=== PATIENT | female | born 1980 | race Hispanic/Latino ===

== ENCOUNTER 2017-04-08 19:54 | Inpatient (IN) | payer MEDICAID, OTHER ==
[2017-04-08 20:12] VITALS: BMI 25.7
[2017-04-08] MEDS ORDERED: Insulin Regular 1 UNITS/0.01 ML ML IVP STA (20:31)
[2017-04-08] MEDS ORDERED: Insulin Regular 100 UNITS in Sodium Chloride 0.9% 99 ML IV PRN (20:33)
--- NOTE | 2017-04-08 20:39 | ED PDOC ---
Arrival/HPI - General Chief Complaint: Abdominal Pain Time Seen by Provider: 04/08/17 20:22 Historian: Patient - History of Present Illness Narrative History of Present Illness (Text): 04/08/17 20:40 36 year old female whose past medical history includes IDDM, alcohol and drug abuse, hysterectomy, benign brain tumor presents to the emergency department with generalized malaise over the past few days, today associated with nausea, vomiting, abdominal cramps. Patient states also a few days ago began having sensation of slightly blurred vision which has since resolved. Denies any headache. No fever or chills. No chest pain or shortness of breath. Past Medical History - Provider Review Nursing Documentation Reviewed: Yes - Infectious Disease Hx of Infectious Diseases: None - Tetanus Immunization Tetanus Immunization: Unknown - Cardiac Hx Cardiac Disorders: No Hx Angina: No Hx Hypertension: Yes - Pulmonary Hx Respiratory Disorders: Yes Hx Pneumonia: Yes - Neurological Hx Neurological Disorder: Yes Hx Alzheimer's Disease: No HX Cerebrovascular Accident: No Hx Dementia: No Hx Dizziness: No Hx Meningitis: No Hx Migraine: No Hx Parkinson's Disease: No Hx Seizures: No Hx Transient Ischemic Attacks (TIA): No Other/Comment: benign brain mass - HEENT Hx HEENT Disorder: No Hx Blind: No Hx Cataracts: No Hx Deafness: No Hx Difficulty Chewing: No Hx Epistaxis: No Hx Glaucoma: No Hx Macular Degeneration: No - Renal Hx Renal Disorder: No Hx Dialysis: No Hx Kidney Stones: No Hx Neurogenic Bladder: No Hx Pyelonephritis: No Hx Renal Cancer: No Hx Renal Failure: No - Endocrine/Metabolic Hx Endocrine Disorders: Yes Hx Diabetes Mellitus Type 2: Yes Hx Hypothyroidism: Yes Other/Comment: insulin pump - Hematological/Oncological Hx Blood Transfusions: No Hx Blood Transfusion Reaction: No - Integumentary Hx Dermatological Disorder: No Hx Basal Cell Carcinoma: No Hx Eczema: No Hx Melanoma: No Hx Psoriasis: No Hx Squamous Cell Carcinoma: No - Musculoskeletal/Rheumatological Hx Musculoskeletal Disorders: No Hx Arthritis: No Hx Back Pain: No Hx Degenerative Joint Disease: No Hx Falls: No Hx Fractures: No Hx Gout: No Hx Herniated Disk: No Hx Myasthenia Gravis: No Hx Osteoarthritis: No Hx Osteomyelitis: No Hx Osteoporosis: No Hx Rhabdomyolysis: No Hx Spinal Stenosis: No Hx Unsteady Gait: No - Gastrointestinal Hx Gall Bladder Disease: No Hx Gastroesophageal Reflux: No Hx Ileostomy: No Hx Liver Failure: No Hx Pancreatitis: No HX Swallowing Problems: No - Genitourinary/Gynecological Hx Genitourinary Disorders: No Hx Hematuria: No Hx Incontinence: No Hx Sexually Transmitted Diseases: No Hx Urinary Tract Infection: No - Psychiatric Hx Anxiety: No Hx Bipolar Disorder: Yes Hx Depression: No Hx Hallucinations: No Hx Panic Disorder: No Hx Post Traumatic Stress Disorder: No Hx Substance Use: No - Surgical History Hx Cholecystectomy: Yes Other/Comment: brain surgery and hysterectomy - Anesthesia Hx Anesthesia: Yes Hx Anesthesia Reactions: No Hx Malignant Hyperthermia: No Family/Social History - Physician Review Nursing Documentation Reviewed: Yes Family/Social History: Unknown Family HX Smoking Status: Current Some Days Smoker Hx Alcohol Use: Yes (ETOH ABUSE) Frequency of alcohol use: Socially Hx Substance Use: No Allergies/Home Meds Allergies/Adverse Reactions: Allergies No Known Allergies Allergy (Verified 04/08/17 20:12) Review of Systems - Physician Review All systems were reviewed & negative as marked: Yes - Review of Systems Constitutional: Other (Generalized malaise). absent: Fevers Eyes: Vision Changes (blurred vision (resolved)) Respiratory: absent: SOB Cardiovascular: absent: Chest Pain Gastrointestinal: Abdominal Pain, Nausea, Vomiting Neurological: absent: Headache Physical Exam Vital Signs Reviewed: Yes Vital Signs Temp Pulse Resp BP Pulse Ox 04/08/17 20:22 97.3 F L 118 H 22 150/109 H 98 Temperature: Afebrile Blood Pressure: Hypertensive Pulse: Tachycardic Respiratory Rate: Normal Appearance: Positive for: Well-Appearing, Non-Toxic, Comfortable Pain Distress: None Mental Status: Positive for: Alert and Oriented X 3 Finger Stick Blood Glucose: 500 - Systems Exam Head: Present: Atraumatic, Normocephalic Pupils: Present: PERRL Extroacular Muscles: Present: EOMI Conjunctiva: Present: Normal, Other (Fundi normal, no hemorrhages) Mouth: Present: Dry, Other (Fruity odor on breath) Neck: Present: Normal Range of Motion, Other (Supple). No: Meningeal Signs, MIDLINE TENDERNESS, Paraspinal Tenderness Respiratory/Chest: Present: Clear to Auscultation, Good Air Exchange. No: Respiratory Distress, Accessory Muscle Use Cardiovascular: Present: Normal S1, S2, Tachycardic. No: Murmurs Abdomen: Present: Normal Bowel Sounds. No: Tenderness, Distention, Peritoneal Signs Back: Present: Normal Inspection Upper Extremity: Present: Normal Inspection. No: Cyanosis, Edema Lower Extremity: Present: Normal Inspection. No: Edema Neurological: Present: GCS=15, CN II-XII Intact, Speech Normal, Motor Func Grossly Intact, Normal Sensory Function, Other (No focal deficits) Skin: Present: Warm, Dry, Normal Color. No: Rashes Psychiatric: Present: Alert, Oriented x 3, Normal Insight, Normal Concentration Medical Decision Making ED Course and Treatment: Differential Diagnosis included but are not limited to: DKA Plan: -- EKG, Chest X-ray -- Labs -- Reassess and disposition Prior Visits: Notes and results from previous visits were reviewed. Patient last seen in the ED on 11/21/16 for generalized weakness and headache, admitted for Hyperosmolar non-ketotic state in patient with type 2 diabetes mellitus Progress Notes: Reviewed EKG, sinus tachycardia at 104 bpm. Non-specific ST/T wave changes. 04/08/17 21:24 Reviewed radiology, Chest X-ray shows no acute processes. 04/08/17 21:[address] Her, differential repairer, who is aware and agrees to evaluate pt for ICU. 04/08/17 22:[address] Her, present in Emergency department to evaluate pt. Pt will be admitted to the ICU for diabetic ketoacidosis. - Critical Care Critical Care Minutes: 30 minutes - Lab Interpretations Lab Results: 04/08/17 20:39 04/08/17 20:39 Lab Results 04/08/17 20:39: Sodium 132, Chloride 103, Potassium 4.0, Carbon Dioxide < 5 L D , Anion Gap 28 H, BUN 7, Creatinine 0.7, Est GFR ( Amer) > 60, Est GFR ( Non-Af Amer) > 60, Random Glucose 601 H* D, Calcium 8.9, Total Bilirubin 0.7, AST 34, ALT 45, Alkaline Phosphatase 105, Total Protein 8.3, Albumin 4.7, Globulin 3.5, Albumin/Globulin Ratio 1.3 04/08/17 20:39: pO2 169 H, VBG pH 7.13 L*, VBG pCO2 16.0 L*, VBG HCO3 5.3 L, VBG Total CO2 5.8 L, VBG O2 Sat (Calc) 98.7 H, VBG Base Excess -21.7 L, VBG Potassium 4.1, Sodium 132.0, Chloride 104.0, Glucose 667 H*, Lactate 1.0, FiO2 21.0, Venous Blood Potassium 4.1 04/08/17 20:39: PT 10.2, INR 0.94, APTT 32.2 H 04/08/17 20:39: WBC 6.0, RBC 4.28, Hgb 15.0, Hct 41.4, MCV 96.7, MCH 35.0, MCHC 36.2, RDW 13.3, Plt Count 311, MPV 10.2, Gran % 57.0, Lymph % (Auto) 35.1 H, Dawes % (Auto) 6.2 H, Eos % (Auto) 0.7 L, Baso % (Auto) 1.0, Gran # 3.41, Lymph # 2.1, Dawes # 0.4, Eos # 0.0, Baso # 0.06 I have reviewed the lab results: Yes - RAD Interpretation Radiology Orders: 04/08/17 20:29 CHEST PORTABLE [RAD] Stat Optometric Coordinator: ED Physician - EKG Interpretation Interpreted by ED Physician: Yes Type: 12 lead EKG - Medication Orders Current Medication Orders: Atenolol (Tenormin) 12.5 mg PO DAILY SHIREEN Divalproex Sodium (Depakote Er(Once Daily)) 500 mg PO DAILY SHIREEN PRN Reason: Protocol Gabapentin (Neurontin) 300 mg PO TID SHIREEN PRN Reason: Protocol Insulin Human Regular 100 (units/ Sodium Chloride) 100 mls @ 8 mls/hr IV .[id number] PRN; Protocol; 8 UNITS/HR PRN Reason: TITRATE PER MD ORDER Last Admin: 04/08/17 21:12 Dose: 8 mls/hr Famotidine 20 mg/ Sodium (Chloride) 52 mls @ 100 mls/hr IV DAILY SHIREEN Sodium Chloride (Sodium Chloride 0.9%) 1,000 mls @ 200 mls/hr IV .Q5H SHIREEN Levothyroxine Sodium (Synthroid) 88 mcg PO ACB SHIREEN Lisinopril (Zestril) 5 mg PO DAILY SHIREEN Ondansetron HCl (Zofran Inj) 4 mg IVP Q6 PRN PRN Reason: Nausea/Vomiting Discontinued Medications Sodium Chloride 2,000 ml/ IV (SUPPLIES) 2,000 mls @ 3,592.44 mls/hr IV ONCE ONE PRN Reason: 60 ML/KG/HR Stop: 04/08/17 20:30 Last Admin: 04/08/17 20:58 Dose: 3,592.44 mls/hr Insulin Human Regular (Humulin R) 10 units IVP STAT STA Stop: 04/08/17 20:32 Last Admin: 04/08/17 21:12 Dose: 10 units Insulin Human Regular (Humulin R) Confirm Administered Dose 100 units .ROUTE .STK-MED ONE Stop: 04/08/17 20:53 Last Admin: 04/08/17 21:12 Dose: - Scribe Statement The provider has reviewed the documentation as recorded by the Desiree Johnson Provider Scribe Attestation: All medical record entries made by the Johnsonibe were at my direction and personally dictated by me. I have reviewed the chart and agree that the record accurately reflects my personal performance of the history, physical exam, medical decision making, and the department course for this patient. I have also personally directed, reviewed, and agree with the discharge instructions and disposition. Disposition/Present on Arrival - Present on Arrival Any Indicators Present on Arrival: No History of DVT/PE: No History of Uncontrolled Diabetes: Yes Urinary Catheter: No History of Decub. Ulcer: No History Surgical Site Infection Following: None - Disposition Have Diagnosis and Disposition been Completed?: Yes Diagnosis: Diabetic ketoacidosis Disposition: HOSPITALIZED Disposition Time: 21:25 Patient Plan: ICU Patient Problems: Current Active Problems Problem Status Onset Diabetic ketoacidosis Acute Condition: FAIR
[2017-04-08 20:50] LABS: ADD MANUAL DIFF? NO
[2017-04-08] MEDS ORDERED: Insulin Regular 1 UNITS/0.01 ML ML ONE (20:52)
[2017-04-08 20:59] LABS: VENOUS BLOOD GAS BASE EXCESS -21.7 mmol/L (0.0-2.0)
[2017-04-08 21:08] LABS: ALB/GLOB RATIO 1.3 (1.1-1.8); ALKALINE PHOSPHATASE 105 U/L (38-133); ALT/SGPT 45 U/L (7-56); AST/SGOT 34 U/L (15-39); BILIRUBIN,TOTAL 0.7 mg/dL (0.2-1.3); BLOOD UREA NITROGEN 7 mg/dL (7-21); CALCIUM 8.9 mg/dL (8.4-10.5); CHLORIDE 103 mmol/L (98-107); GFR AFRICAN-AMERICAN > 60; SODIUM 132 mmol/L (132-148); TOTAL PROTEIN 8.3 g/dL (5.8-8.3)
[2017-04-08 21:09] LABS: INR 0.94 (0.93-1.08); PARTIAL THROMBOPLASTIN TIME 32.2 Seconds (23.7-30.8)
[2017-04-08 21:12] LABS: BASO # 0.06 K/mm3 (0.0-2.0); EOS % 0.7 % (1.5-5.0); GRAN # 3.41 (1.4-6.5); HEMATOCRIT 41.4 % (36.0-48.0); LYMPH # 2.1 (1.2-3.4); LYMPH % 35.1 % (22.0-35.0); MEAN CELL VOLUME 96.7 fL (80.0-105.0); MEAN CORPUSCULAR HGB CONC 36.2 g/dl (31.0-37.0); MEAN PLATELET VOLUME 10.2 fl (7.0-11.0); MONO # 0.4 (0.1-0.6); MONO % 6.2 % (1.0-6.0); PLATELET COUNT 311 10^3/uL (120.0-450.0); RED CELL DISTRIBUTION WIDTH 13.3 % (11.5-14.5)
[2017-04-08 21:15] LABS: VENOUS BLOOD PH 7.13 (7.32-7.43)
[2017-04-08 21:17] LABS: CARBON DIOXIDE < 5 mmol/L (21-33); GLUCOSE,RANDOM 601 mg/dL (70-110)
[2017-04-08 22:51] LABS: MAGNESIUM 2.1 mg/dL (1.7-2.2); PHOSPHOROUS 3.1 mg/dL (2.5-4.5)
[2017-04-09] MEDS ORDERED: Morphine 2 mg/ml ISec ONE ×3 (02:58→13:21)
--- NOTE | 2017-04-09 07:22 | RAD ---
HISTORY: Sepsis Patient COMPARISON: 09/11/2015 FINDINGS: LUNGS: No active pulmonary disease. PLEURA: No significant pleural effusion identified, no pneumothorax apparent. CARDIOVASCULAR: Normal. OSSEOUS STRUCTURES: No significant abnormalities. VISUALIZED UPPER ABDOMEN: Normal. OTHER FINDINGS: None. IMPRESSION: No active disease.
[2017-04-09] MEDS ORDERED: Levothyroxine 88 MCG TAB PO SCH (07:30)
[2017-04-09] MEDS ORDERED: Potassium Chloride 20 mEq ER Tab PO SCH (09:35)
[2017-04-09] MEDS ORDERED: Famotidine 20mg/50ml 20 MG/50 ML BAG IVPB SCH (10:00)
[2017-04-09] MEDS ORDERED: Divalproex 500 mg ER (ONCE DAILY formulation) PO SCH (10:00)
[2017-04-09] MEDS ORDERED: Potassium Chloride 20 mEq ER Tab PO ONE ×2 (11:07→13:22)
--- NOTE | 2017-04-09 15:05 | CARD ---
APPROVED REPORT EKG Measurement Heart [id number] <Conclusion> Sinus tachycardia Otherwise normal ECG
[2017-04-09] MEDS ORDERED: Insulin Detemir 100 units/ml Vial (Levemir) SC SCH ×2 (15:35→22:00)
[2017-04-09] MEDS ORDERED: Insulin Detemir 100 units/ml Vial (Levemir) SC ONE (16:23)
[2017-04-09] MEDS ORDERED: MethylPREDNISolone 40 mg Vial ONE (18:37)
--- NOTE | 2017-04-09 19:10 | CP.PCM.HP ---
<Thor Dos Santos - Last Filed: 04/10/17 04:13> History of Present Illness - History of Present Illness History of Present Illness: 36 year old female with past medical history of IDDM, hypothyroidism, bipolar disorder, alcohol abuse, and brain tumor s/p resection presents to [facility] [place] [facility] ED complaining of nausea, vomiting and generalized weakness. Patient reports her symptoms all started 4 days ago. Other associated symptoms include blurred vision, dizziness, decreased appetite and abdominal pain. Patients insulin pump has been working normally, but her glucose level has been elevated in the 300s. Patient was admitted to [facility] previously in October 2017 for HONK and sepsis. Patient denies having fever, chills, headache, shortness of breath, chest pain, palpitations, diarrhea or urinary symptoms. PMD: none PMHx: IDDM, hypothyroidism, bipolar disorder, alcohol abuse, and brain tumor s/ p resection PSHx: cholecystectomy, hysterectomy Allergy: NKFS Social: Current smoker, social alcohol use, denies other drug use Family Hx: unknow: Home meds: lisinopril, synthroid, humalog, neurontin, depakote, atenolol Present on Admission - Present on Admission Any Indicators Present on Admission: No History of DVT/PE: No History of Uncontrolled Diabetes: Yes Review of Systems - Constitutional Constitutional: As Per HPI, Fatigue, Lethargy. absent: Chills, Fever - EENT Eyes: As Per HPI, Blurred Vision, Change in Vision Ears: As Per HPI. absent: Dizziness Nose/Mouth/Throat: As Per HPI, Dry Mouth - Cardiovascular Cardiovascular: As Per HPI. absent: Chest Pain - Respiratory Respiratory: As Per HPI. absent: Cough, Dyspnea, Wheezing - Gastrointestinal Gastrointestinal: As Per HPI, Abdominal Pain, Nausea, Vomiting - Genitourinary Genitourinary: As Per HPI, Urinary Frequency. absent: Urinary Hesitance, Urinary Urgency - Musculoskeletal Musculoskeletal: As Per HPI Additional comments: left ankle mass - Integumentary Integumentary: As Per HPI - Neurological Neurological: As Per HPI, Weakness. absent: Confusion, Headaches, Syncope - Psychiatric Psychiatric: As Per HPI - Endocrine Endocrine: As Per HPI, Fatigue, Polydipsia - Hematologic/Lymphatic Hematologic: As Per HPI Past Patient History - Infectious Disease Hx of Infectious Diseases: None - Tetanus Immunizations Tetanus Immunization: Unknown - Past Medical History & Family History Past Medical History?: Yes - Past Social History Smoking Status: Current Some Days Smoker - CARDIAC Hx Cardiac Disorders: No Hx Angina: No Hx Hypertension: Yes - PULMONARY Hx Respiratory Disorders: Yes Hx Pneumonia: Yes - NEUROLOGICAL Hx Neurological Disorder: Yes Hx Alzheimer's Disease: No HX Cerebrovascular Accident: No Hx Dementia: No Hx Dizziness: No Hx Meningitis: No Hx Migraine: No Hx Parkinson's Disease: No Hx Seizures: No Hx Transient Ischemic Attacks (TIA): No Other/Comment: benign brain mass - HEENT Hx HEENT Problems: No Hx Blind: No Hx Cataracts: No Hx Deafness: No Hx Difficulty Chewing: No Hx Epistaxis: No Hx Glaucoma: No Hx Macular Degeneration: No - RENAL Hx Chronic Kidney Disease: No Hx Dialysis: No Hx Kidney Stones: No Hx Neurogenic Bladder: No Hx Pyelonephritis: No Hx Renal (Kidney) Cancer: No Hx Renal Failure: No - ENDOCRINE/METABOLIC Hx Endocrine Disorders: Yes Hx Diabetes Mellitus Type 2: Yes Hx Hypothyroidism: Yes Other/Comment: insulin pump - HEMATOLOGICAL/ONCOLOGICAL Hx Blood Transfusions: No Hx Blood Transfusion Reaction: No - INTEGUMENTARY Hx Dermatological Problems: No Hx Basil Cell: No Hx Eczema: No Hx Melanoma: No Hx Psoriasis: No Hx Squamous Cell: No - MUSCULOSKELETAL/RHEUMATOLOGICAL Hx Musculoskeletal Disorders: No Hx Arthritis: No Hx Back Pain: No Hx Degenerative Joint Disease: No Hx Falls: No Hx Fractures: No Hx Gout: No Hx Herniated Disk: No Hx Myasthenia Gravis: No Hx Osteoarthritis: No Hx Osteomyelitis: No Hx Osteoporosis: No Hx Rhabdomyolysis: No Hx Spinal Stenosis: No Hx Unsteady Gait: No - GASTROINTESTINAL Hx Gall Bladder Disease: No Hx Gastroesophageal Reflux: No Hx Ileostomy: No Hx Liver Failure: No Hx Pancreatitis: No HX Swallowing Problems: No - GENITOURINARY/GYNECOLOGICAL Hx Genitourinary Disorders: No Hx Hematuria: No Hx Incontinence: No Hx Sexually Transmitted Disorders: No Hx Urinary Tract Infection: No - PSYCHIATRIC Hx Anxiety: No Hx Bipolar Disorder: Yes Hx Depression: No Hx Hallucinations: No Hx Panic Symptoms: No Hx Post Traumatic Stress Disorder: No Hx Substance Use: No - SURGICAL HISTORY Hx Cholecystectomy: Yes Other/Comment: brain surgery and hysterectomy - ANESTHESIA Hx Anesthesia: Yes Hx Anesthesia Reactions: No Hx Malignant Hyperthermia: No Meds Allergies/Adverse Reactions: Allergies Allergy/AdvReac Type Severity Reaction Status Date / Time No Known Allergies Allergy Verified 04/08/17 20:12 Physical Exam - Constitutional Appears: Non-toxic, No Acute Distress - Head Exam Head Exam: ATRAUMATIC, NORMAL INSPECTION, NORMOCEPHALIC - Eye Exam Eye Exam: EOMI, Normal appearance, PERRL - ENT Exam ENT Exam: Mucous Membranes Moist - Neck Exam Neck exam: Positive for: Normal Inspection - Respiratory Exam Respiratory Exam: Clear to Auscultation Bilateral, NORMAL BREATHING PATTERN. absent: Wheezes, Respiratory Distress, Stridor - Cardiovascular Exam Cardiovascular Exam: REGULAR RHYTHM, RRR, +S1, +S2 - GI/Abdominal Exam GI & Abdominal Exam: Normal Bowel Sounds, Soft, Tenderness (diffused tenderness) . absent: Hernia, Mass - Extremities Exam Extremities exam: Positive for: normal capillary refill, pedal pulses present Additional comments: Left lateral malleolus mass 2cm in diameter, painful to touch, no erythema or open lesions - Back Exam Back exam: NORMAL INSPECTION - Neurological Exam Neurological exam: Alert, Oriented x3 - Psychiatric Exam Psychiatric exam: Normal Affect, Normal Mood - Skin Skin Exam: Dry, Warm Results - Vital Signs Recent Vital Signs: Last Vital Signs Temp 97.3 F L 04/08/17 20:22 Pulse 96 H 04/08/17 23:44 Resp 18 04/08/17 23:44 BP 129/80 04/08/17 23:44 Pulse Ox 97 04/08/17 23:44 - Labs Result Diagrams: 04/08/17 20:39 04/09/17 18:50 Labs: Laboratory Results - last 24 hr 04/08/17 04/09/17 04/09/17 23:48 00:58 02:09 POC Glucose (mg/dL) 401 H* 332 H 206 H 04/09/17 04/09/17 04/09/17 03:13 04:06 05:13 POC Glucose (mg/dL) 136 H 107 90 04/09/17 04/09/17 04/09/17 07:06 08:01 09:04 POC Glucose (mg/dL) 119 H 122 H 123 H 04/09/17 04/09/17 04/09/17 10:01 11:05 12:07 POC Glucose (mg/dL) 129 H 294 H 265 H 04/09/17 04/09/17 04/09/17 13:10 14:04 15:05 POC Glucose (mg/dL) 177 H 220 H 194 H 04/09/17 04/09/17 04/09/17 15:53 16:52 17:56 POC Glucose (mg/dL) 189 H 161 H 196 H Assessment & Plan - Assessment and Plan (Free Text) Assessment: 36 year old female with past medical history of IDDM, hypothyroidism, and bipolar disorder presents with nausea, vomiting, and abdominal pain was admitted for DKA Plan: DKA -Gap 24, pH 7.13, pCO2 16, HCO3 5.3, Glucose 667, Potassium 4 -ICU admission -Insulin drip IV -IVF NS @200ml/hr, start D5 1/2 once FS<250 -FS Q1h -NPO -BMP Q4h -Strict I&O -Zofran for N/V -Morphine 2mg iv Q4 prn for pain -Monitor electrolytes, supplement as needed -Blood culture pending to r/o infectious etiologies -Endocrine consult, Dr. Garcia help appreciated Hypertension -Resume lisinopril, atenolol Bipolar disorder -Resume depakote Hypothyroidism -Resume synthroid Left ankle nodule -Patient had outpatient workup done, will continue outpatient management Prophylactic measures -SCD for DVT ppx -Protonix of GI ppx <Taina,Thomas Q - Last Filed: 04/11/17 00:54> Results - Vital Signs Recent Vital Signs: Last Vital Signs Temp 98.4 F 04/10/17 15:47 Pulse 86 04/10/17 15:47 Resp 20 04/10/17 15:47 BP 93/61 L 04/10/17 15:47 Pulse Ox 94 L 04/10/17 15:47 - Labs Result Diagrams: 04/10/17 06:30 04/10/17 06:30 Labs: Laboratory Results - last 24 hr 04/09/17 04/09/17 04/09/17 07:00 07:00 07:00 WBC 5.8 RBC 3.58 Hgb 12.3 Hct 33.5 L MCV 93.6 MCH 34.4 MCHC 36.7 RDW 13.2 Plt Count 240 MPV 9.4 Gran % Lymph % (Auto) Parke % (Auto) Eos % (Auto) Baso % (Auto) Gran # Lymph # Parke # Eos # Baso # Sodium 139 Potassium 2.9 L* Chloride 114 H Carbon Dioxide 15 L Anion Gap 13 BUN 7 Creatinine 0.5 Est GFR ( Amer) > 60 Est GFR (Non-Af Amer) > 60 POC Glucose (mg/dL) Random Glucose 113 H Hemoglobin A1c 13.1 H Calcium 7.3 L Phosphorus Total Bilirubin 0.8 AST 188 H ALT 83 H Alkaline Phosphatase 83 Total Protein 5.7 L Albumin 3.1 Globulin 2.5 Albumin/Globulin Ratio 1.2 Triglycerides Cholesterol LDL Cholesterol Direct HDL Cholesterol Thyroxine (T4) TSH 3rd Generation 04/09/17 04/10/17 04/10/17 15:30 06:30 06:30 WBC 4.8 RBC 3.51 Hgb 11.8 L Hct 33.2 L MCV 94.6 MCH 33.6 MCHC 35.5 RDW 14.0 Plt Count 234 MPV 9.8 Gran % 39.5 L Lymph % (Auto) 50.1 H Parke % (Auto) 8.3 H Eos % (Auto) 1.7 Baso % (Auto) 0.4 Gran # 1.90 Lymph # 2.4 Parke # 0.4 Eos # 0.1 Baso # 0.02 Sodium 135 138 Potassium 3.5 L 3.5 L Chloride 114 H 113 H Carbon Dioxide 18 L 20 L Anion Gap 7 L 9 L BUN 7 6 L Creatinine 0.5 0.5 Est GFR ( Amer) > 60 > 60 Est GFR (Non-Af Amer) > 60 > 60 POC Glucose (mg/dL) Random Glucose 178 H 389 H* D Hemoglobin A1c Calcium 7.1 L 7.8 L Phosphorus 1.7 L Total Bilirubin 0.3 0.3 AST 100 H 30 ALT 83 H 58 H Alkaline Phosphatase 72 75 Total Protein 4.9 L 4.9 L Albumin 2.6 L 2.5 L Globulin 2.3 2.4 Albumin/Globulin Ratio 1.1 1.0 L Triglycerides 496 H Cholesterol 246 H LDL Cholesterol Direct 127 HDL Cholesterol 34 Thyroxine (T4) TSH 3rd Generation 04/10/17 04/10/17 06:30 11:13 WBC RBC Hgb Hct MCV MCH MCHC RDW Plt Count MPV Gran % Lymph % (Auto) Parke % (Auto) Eos % (Auto) Baso % (Auto) Gran # Lymph # Parke # Eos # Baso # Sodium Potassium Chloride Carbon Dioxide Anion Gap BUN Creatinine Est GFR ( Amer) Est GFR (Non-Af Amer) POC Glucose (mg/dL) 103 Random Glucose Hemoglobin A1c Calcium Phosphorus Total Bilirubin AST ALT Alkaline Phosphatase Total Protein Albumin Globulin Albumin/Globulin Ratio Triglycerides Cholesterol LDL Cholesterol Direct HDL Cholesterol Thyroxine (T4) 3.7 L TSH 3rd Generation 16.30 H Attending/Attestation - Attestation I have personally seen and examined this patient.: Yes I have fully participated in the care of the patient.: Yes I have reviewed all pertinent clinical information: Yes Notes (Text): 04/11/17 00:53 I agree with the note and exam by the resident with the addition/exception of the followin36 y/o female with a PMHx IDDM presents to the ED with the complaints of fatigue and lethargy and was found to be in DKA. The patient had anion gap acidosis of 24 and was started on IVF hydration as well as an insulin drip. Case discussed at length with Dr. Dacosta in the ED labs and images available at the time were all reviewed Total time of care: 40 minutes
[2017-04-09] MEDS: Morphine 2 mg/ml ISec IVP PRN (20:00)
[2017-04-09 21:04] LABS: BLOOD UREA NITROGEN 7 mg/dL (7-21); CALCIUM 7.4 mg/dL (8.4-10.5); CARBON DIOXIDE 16 mmol/L (21-33); CHLORIDE 112 mmol/L (98-107); GFR AFRICAN-AMERICAN > 60; GLUCOSE,RANDOM 225 mg/dL (70-110); POTASSIUM 3.6 mmol/L (3.6-5.0); SODIUM 136 mmol/L (132-148)
[2017-04-09 21:08] LABS: BLOOD UREA NITROGEN 7 mg/dL (7-21); CHLORIDE 114 mmol/L (98-107); GFR AFRICAN-AMERICAN > 60; GLUCOSE,RANDOM 113 mg/dL (70-110); SODIUM 139 mmol/L (132-148)
[2017-04-09 21:09] LABS: CALCIUM 7.3 mg/dL (8.4-10.5); CARBON DIOXIDE 15 mmol/L (21-33)
[2017-04-09] MEDS: Sodium Chloride 0.9% 1,000 ML IV SCH (22:00)
--- NOTE | 2017-04-09 23:36 | CON ---
DATE: 04/09/2017 HISTORY OF PRESENT ILLNESS: This is a 36-year-old female with known history of type 1 insulin-depend ent diabetes, presenting here with generalized body weakness and supervening marked hyperglycemic acc elerations and is now being referred for diabetic evaluation and management. She currently is on aracelis oing insulin pump infusion at home given by subcutaneous continuous infusion as noted. She alleges t hat the pump has been working otherwise. No recent home glucose monitoring levels are available at t his time. PAST MEDICAL HISTORY: As mentioned above, history of type 1 insulin-dependent diabetes with poor met abolic control of her diabetic condition despite the aforementioned and has had multiple admissions f or diabetic ketoacidosis and dehydration, history of hypertension and dyslipidemia, history of hypoth yroidism, currently on levothyroxine given as 88 mcg daily, history of diabetic retinopathy and polyn europathy, currently on Neurontin therapy. FAMILY HISTORY: Positive for hypertension and diabetes. SOCIAL HISTORY: The patient has supportive family and admits to nicotine dependence with frequent al cohol use. REVIEW OF SYSTEMS: As mentioned above, admits to generalized body weakness with progressive bouts of dizziness and lightheadedness, worse on the day of admission. Also, admits to visual blurring and b ifrontal headache. No chest pains or palpitations or PNDs. Her oral intake is variable and suboptim al with nausea, dyspepsia and episodic vomiting episodes. Also, admits to marked polyuria, nocturia, polydipsia, and about a 5-pound or so weight loss. PHYSICAL EXAMINATION: GENERAL: This is an average built female in no apparent distress. VITAL SIGNS: Blood pressure of 140/80, pulse of 84 beats per minute and regular, temperature 98, res pirations 20. Height is 5 feet, weight is 149 pounds. HEENT: Head normocephalic. Eyes anicteric with pink conjunctivae. Fundoscopy not possible at this time. Ears, nose and throat otherwise normal. NECK: Supple. Thyroid gland is normal size. No carotid bruits. No cervical adenopathy. CARDIOPULMONARY: Has an adynamic precordium. S1, S2 rapid and regular. LUNGS: Clear to auscultation. ABDOMEN: Flat, soft with positive bowel sounds. EXTREMITIES: No peripheral edema. Pulses are +2 bilaterally. LABORATORY DATA: Her chemistries showed a BUN of 7, sodium 136, potassium 3.6, chloride 112, CO2 is 16, glucose 225, and creatinine 0.6. Her glucose levels have ranged from 196 to 294 and 315 mg/dL. ASSESSMENT: This is a 36-year-old female with uncontrolled and decompensated type 1 insulin-dependen t diabetes, presenting here with diabetic ketoacidosis and dehydration and is now being referred for diabetic evaluation and management. She also has diabetic microvascular complications of retinopathy and polyneuropathy as noted. The biggest concern at this time is the fact that she apparently has b een using an insulin pump, giving continuous insulin infusion subcutaneously, but has had a significa nt history of poor and suboptimal metabolic control with frequent admissions for diabetic ketoacidosi s and once again presenting here with the aforementioned and so there is a big question as to her adh erence to the diligent use of the insulin pump as mentioned. PLAN OF MANAGEMENT: As discussed with the medical assistant secretary, we will discontinue insulin drip infusio n at this time and switch her over now to a basal and bolus insulin regimen, which is more physiologi c, and hold off on the use of the insulin pump for now to allow her to improve both clinically and me tabolically as noted. We will start her on Levemir given as 20 units subQ at bedtime daily to start tonight. We will also add Humalog given as 10 units subQ t.i.d. before meals to start at dinnertime today as ordered. We will titrate incrementally as indicated to optimize metabolic control. We will modify the coverage scale to a very low dose algorithm using Humalog insulin to obviate hypoglycemia and overlap of the aforementioned medications. We will continue the vigorous IV hydration with norm al saline and given at 200 mL per hour to resolve the anion gap acidosis. We will obtain serial chem istries and supplement accordingly as needed. We will also consult our diabetic nurse educator, Ms. Olesya Goins, to reinforce strict adherence to her insulin regimen and also to consult a dietiti an for healthier food choices and nutritional evaluation. We will also obtain a comprehensive thyroi d hormonal profile and adjust her levothyroxine dose accordingly. Michaela Garcia MD cc: [id number] TT: 04/09/2017 23:36:20 Confirmation # [id number] Dictation # [id number] ln
[2017-04-10] MEDS ORDERED: Insulin Regular 1 UNITS/0.01 ML ML SC ONE (01:01)
[2017-04-10] MEDS ORDERED: Insulin Regular 1 UNITS/0.01 ML ML SC STA (05:59)
[2017-04-10 06:57] LABS: ADD MANUAL DIFF? NO
[2017-04-10 07:11] LABS: BASO # 0.02 K/mm3 (0.0-2.0); BASO % 0.4 % (0.0-3.0); EOS # 0.1 (0.0-0.7); EOS % 1.7 % (1.5-5.0); GRAN % 39.5 % (50.0-68.0); HEMATOCRIT 33.2 % (36.0-48.0); LYMPH # 2.4 (1.2-3.4); LYMPH % 50.1 % (22.0-35.0); MEAN CELL VOLUME 94.6 fL (80.0-105.0); MEAN CORPUSCULAR HEMOGLOBIN 33.6 pg (25.0-35.0); MEAN CORPUSCULAR HGB CONC 35.5 g/dl (31.0-37.0); MEAN PLATELET VOLUME 9.8 fl (7.0-11.0); MONO # 0.4 (0.1-0.6); MONO % 8.3 % (1.0-6.0); PLATELET COUNT 234 10^3/uL (120.0-450.0); WHITE BLOOD COUNT 4.8 10^3/ul (4.5-11.0)
[2017-04-10 07:20] LABS: ALKALINE PHOSPHATASE 75 U/L (38-133); ALT/SGPT 58 U/L (7-56); AST/SGOT 30 U/L (15-39); BILIRUBIN,TOTAL 0.3 mg/dL (0.2-1.3); BLOOD UREA NITROGEN 6 mg/dL (7-21); CALCIUM 7.8 mg/dL (8.4-10.5); CARBON DIOXIDE 20 mmol/L (21-33); CHLORIDE 113 mmol/L (98-107); CHOLESTEROL 246 mg/dL (130-200); GFR AFRICAN-AMERICAN > 60; PHOSPHOROUS 1.7 mg/dL (2.5-4.5); POTASSIUM 3.5 mmol/L (3.6-5.0); SODIUM 138 mmol/L (132-148); TOTAL PROTEIN 4.9 g/dL (5.8-8.3)
[2017-04-10] MEDS ORDERED: Pantoprazole 20 mg EC Tab PO SCH (07:30)
[2017-04-10] MEDS ORDERED: Insulin Reg-LOW-Coverage SC SCH (07:30)
[2017-04-10] MEDS ORDERED: Insulin Lispro (humaLOG) MEDIUM Coverage SC SCH (07:30)
[2017-04-10] MEDS ORDERED: Insulin Lispro 1 UNITS/0.01 ML SC SCH ×2 (07:30→10:00)
[2017-04-10 07:35] LABS: T4 3.7 ug/dL (5.5-11.0)
[2017-04-10 07:48] LABS: THYROID STIMULATING HORMONE 16.3 mIU/mL (0.46-4.68)
[2017-04-10] MEDS: Insulin Lispro (humaLOG) LOW Coverage SC SCH ×2 (08:04→11:45)
[2017-04-10] MEDS: Sodium Chloride 0.9% 1,000 ML IV SCH (08:05)
[2017-04-10 09:15] VITALS: RESP 20
[2017-04-10] MEDS: Potassium & Sodium Phosphate PO SCH ×3 (09:15→17:02)
[2017-04-10] MEDS: Morphine 2 mg/ml ISec IVP PRN ×2 (09:39→15:47)
[2017-04-10] MEDS ORDERED: Pantoprazole 40 mg EC Tab PO SCH (10:00)
[2017-04-10 10:30] LABS: GLUCOSE,RANDOM 389 mg/dL (70-110)
[2017-04-10] MEDS: Insulin Lispro 1 UNITS/0.01 ML SC SCH ×2 (11:30→17:03)
[2017-04-10 11:57] LABS: BLOOD UREA NITROGEN 7 mg/dL (7-21); GFR AFRICAN-AMERICAN > 60; GLUCOSE,RANDOM 113 mg/dL (70-110); SODIUM 139 mmol/L (132-148)
[2017-04-10 12:09] LABS: ALB/GLOB RATIO 1.2 (1.1-1.8); CALCIUM 7.3 mg/dL (8.4-10.5); CARBON DIOXIDE 15 mmol/L (21-33); CHLORIDE 114 mmol/L (98-107); POTASSIUM 2.9 mmol/L (3.6-5.0); TOTAL PROTEIN 5.7 g/dL (5.8-8.3)
[2017-04-10 12:10] LABS: ALKALINE PHOSPHATASE 83 U/L (38-133); ALT/SGPT 83 U/L (7-56); AST/SGOT 188 U/L (15-39); BILIRUBIN,TOTAL 0.8 mg/dL (0.2-1.3)
[2017-04-10 12:16] LABS: ALB/GLOB RATIO 1.1 (1.1-1.8); ALKALINE PHOSPHATASE 72 U/L (38-133); ALT/SGPT 83 U/L (7-56); AST/SGOT 100 U/L (15-39); BILIRUBIN,TOTAL 0.3 mg/dL (0.2-1.3); BLOOD UREA NITROGEN 7 mg/dL (7-21); CALCIUM 7.1 mg/dL (8.4-10.5); CARBON DIOXIDE 18 mmol/L (21-33); CHLORIDE 114 mmol/L (95-110); GFR AFRICAN-AMERICAN > 60; GLUCOSE,RANDOM 178 mg/dL (70-110); POTASSIUM 3.5 mmol/L (3.6-5.0); SODIUM 135 mmol/L (132-148); TOTAL PROTEIN 4.9 g/dL (5.8-8.3)
--- NOTE | 2017-04-10 13:15 | PN ---
DATE: 04/10/2017 ROOM: 573 This is a 36-year-old female with recent uncontrolled type 1 insulin-dependent diabetes, presenting h ere with diabetic ketoacidosis and dehydration and has since then improved clinically and metabolical ly as noted thereof. She received vigorous IV hydration and intensive insulin therapy in the ICU as noted. At this time, her oral intake remains quite variable with supervening glycemic fluctuations e xpected. Her latest chemistry showed a BUN of , sodium 138, potassium 3.5, chloride 113, CO2 of 20, glucose 389 and creatinine 0.5. Her glucose levels have ranged from 103-294 and 315 mg/dL. The fasting glucose today was 389 as mentioned. So at this time, we will modify once again her basal in sulin and increase the Levemir to 30 units subQ at bedtime daily to start tonight. We will continue the Humalog given as 10 units subQ t.i.d. before meals as ordered. We will titrate incrementally as indicated to optimize metabolic control. We will follow and advise accordingly. Michaela Garcia MD cc: [id number] TT: 04/10/2017 13:14:24 Confirmation # [id number] Dictation # [id number] lian
[2017-04-10] MEDS ORDERED: Insulin Lispro (humaLOG) LOW Coverage SC SCH (13:33)
--- NOTE | 2017-04-10 15:16 | RAD ---
HISTORY: short of breath COMPARISON: 04/08/2017 TECHNIQUE: Chest PA and lateral FINDINGS: LUNGS: Atelectasis at the lung bases left greater than right PLEURA: No significant pleural effusion identified. No pneumothorax apparent. CARDIOVASCULAR: No radiographic findings to suggest acute or significant cardiovascular disease. OSSEOUS STRUCTURES: No significant abnormalities. VISUALIZED UPPER ABDOMEN: Normal. OTHER FINDINGS: None. IMPRESSION: Lower lobe infiltrates/ atelectasis represent new findings compared the prior study.
[2017-04-10 15:47] VITALS: BP 93/61; PULSE 86; TEMP 98.4; O2SAT 94
[2017-04-10 16:56] LABS: HEMATOCRIT 33.5 % (36.0-48.0); MEAN CELL VOLUME 93.6 fL (80.0-105.0); MEAN CORPUSCULAR HEMOGLOBIN 34.4 pg (25.0-35.0); MEAN CORPUSCULAR HGB CONC 36.7 g/dl (31.0-37.0); MEAN PLATELET VOLUME 9.4 fl (7.0-11.0); RED CELL DISTRIBUTION WIDTH 13.2 % (11.5-14.5); WHITE BLOOD COUNT 5.8 10^3/ul (4.5-11.0)
--- NOTE | 2017-04-10 17:35 | CP.PCM.DIS ---
<Berny Mario - Last Filed: 04/10/17 17:21> Provider - Provider Date of Admission: 04/08/17 21:22 Attending physician: Titus Monge MD Primary care physician: Patsy Noland DO Consults: Endocrinology: Cam Time Spent in preparation of Discharge (in minutes): 45 Hospital Course - Lab Results Lab Results: Micro Results 04/08/17 21:26 Blood Blood Culture - Preliminary NO GROWTH AFTER 24 HOURS Most Recent Lab Values WBC 4.8 10^3/ul (4.5-11.0) 04/10/17 06:30 RBC 3.51 10^6/uL (3.5-6.1) 04/10/17 06:30 Hgb 11.8 gm/dL (12.0-16.0) L 04/10/17 06:30 Hct 33.2 % (36.0-48.0) L 04/10/17 06:30 MCV 94.6 fL (80.0-105.0) 04/10/17 06:30 MCH 33.6 pg (25.0-35.0) 04/10/17 06:30 MCHC 35.5 g/dl (31.0-37.0) 04/10/17 06:30 RDW 14.0 % (11.5-14.5) 04/10/17 06:30 Plt Count 234 10^3/uL (120.0-450.0) 04/10/17 06:30 MPV 9.8 fl (7.0-11.0) 04/10/17 06:30 Gran % 39.5 % (50.0-68.0) L 04/10/17 06:30 Lymph % (Auto) 50.1 % (22.0-35.0) H 04/10/17 06:30 Weakley % (Auto) 8.3 % (1.0-6.0) H 04/10/17 06:30 Eos % (Auto) 1.7 % (1.5-5.0) 04/10/17 06:30 Baso % (Auto) 0.4 % (0.0-3.0) 04/10/17 06:30 Gran # 1.90 (1.4-6.5) 04/10/17 06:30 Lymph # 2.4 (1.2-3.4) 04/10/17 06:30 Weakley # 0.4 (0.1-0.6) 04/10/17 06:30 Eos # 0.1 (0.0-0.7) 04/10/17 06:30 Baso # 0.02 K/mm3 (0.0-2.0) 04/10/17 06:30 PT 10.2 Seconds (9.9-11.8) 04/08/17 20:39 INR 0.94 (0.93-1.08) 04/08/17 20:39 APTT 32.2 Seconds (23.7-30.8) H 04/08/17 20:39 pO2 169 mm/Hg (30-55) H 04/08/17 20:39 VBG pH 7.13 (7.32-7.43) L* 04/08/17 20:39 VBG pCO2 16.0 (40-60) L* 04/08/17 20:39 VBG HCO3 5.3 mmol/l (21-28) L 04/08/17 20:39 VBG Total CO2 5.8 mmol.L (22-28) L 04/08/17 20:39 VBG O2 Sat (Calc) 98.7 % (40-65) H 04/08/17 20:39 VBG Base Excess -21.7 mmol/L (0.0-2.0) L 04/08/17 20:39 VBG Potassium 4.1 mmol/L (3.6-5.2) 04/08/17 20:39 Sodium 132.0 mmol/L (132-148) 04/08/17 20:39 Chloride 104.0 mmol/L (98-107) 04/08/17 20:39 Glucose 667 mg/dl (65-105) H* 04/08/17 20:39 Lactate 1.0 mmol/L (0.7-2.1) 04/08/17 20:39 FiO2 21.0 % 04/08/17 20:39 Sodium 138 mmol/L (132-148) 04/10/17 06:30 Potassium 3.5 mmol/L (3.6-5.0) L 04/10/17 06:30 Chloride 113 mmol/L (98-107) H 04/10/17 06:30 Carbon Dioxide 20 mmol/L (21-33) L 04/10/17 06:30 Anion Gap 9 (10-20) L 04/10/17 06:30 BUN 6 mg/dL (7-21) L 04/10/17 06:30 Creatinine 0.5 mg/dL (0.5-1.4) 04/10/17 06:30 Est GFR ( Amer) > 60 04/10/17 06:30 Est GFR (Non-Af Amer) > 60 04/10/17 06:30 POC Glucose (mg/dL) 103 mg/dL (65-110) 04/10/17 11:13 Random Glucose 389 mg/dL (70-110) H* D 04/10/17 06:30 Hemoglobin A1c 13.1 % (4.2-6.5) H 04/09/17 07:00 Calcium 7.8 mg/dL (8.4-10.5) L 04/10/17 06:30 Phosphorus 1.7 mg/dL (2.5-4.5) L 04/10/17 06:30 Magnesium 2.1 mg/dL (1.7-2.2) 04/08/17 20:39 Total Bilirubin 0.3 mg/dL (0.2-1.3) 04/10/17 06:30 AST 30 U/L (15-39) 04/10/17 06:30 ALT 58 U/L (7-56) H 04/10/17 06:30 Alkaline Phosphatase 75 U/L (38-133) 04/10/17 06:30 Total Protein 4.9 g/dL (5.8-8.3) L 04/10/17 06:30 Albumin 2.5 g/dL (3.0-4.8) L 04/10/17 06:30 Globulin 2.4 gm/dL 04/10/17 06:30 Albumin/Globulin Ratio 1.0 (1.1-1.8) L 04/10/17 06:30 Triglycerides 496 mg/dL (35-160) H 04/10/17 06:30 Cholesterol 246 mg/dL (130-200) H 04/10/17 06:30 LDL Cholesterol Direct 127 mg/dL (0-129) 04/10/17 06:30 HDL Cholesterol 34 mg/dL (29-60) 04/10/17 06:30 Thyroxine (T4) 3.7 ug/dL (5.5-11.0) L 04/10/17 06:30 TSH 3rd Generation 16.30 mIU/mL (0.46-4.68) H 04/10/17 06:30 Venous Blood Potassium 4.1 mmol/L (3.6-5.2) 04/08/17 20:39 - Hospital Course Hospital Course: Upon Admission: 36yo F with PMHx of IDDM, hypothyroidism, bipolar disorder, alcohol abuse, and brain tumor s/p resection here for evaluation of nausea, vomiting and generalized weakness. Symptoms started 4 days ago and gradually became worse. On initial labs, patient was found to be in DKA with Anion Gap of 24. She was admitted to the ICU overnight and started on the insulin drip. Patient status improved and her gap closed. She was then transitioned to SC insulin. Endocrinology consult was obtained. No signs of infection, no leukocytosis, clear CXR. Patient states compliance with her insulin regimen at home and states that she uses an insulin pump. We started her on Levemir 30U HS and Humalog 10U ACTID due to being unsure if the DKA was due to pump malfunction. Her glucose levels were well controlled, patient tolerated diet. Patient also c/ o a left lateral malleolus mass for which she has been getting treatment and follow up by her PMD as out-patient including MRI. She states that she will continue evaluation of this mass as an outpatient. She also states that her Levothyroxine was increased by her PMD 2 months prior. Her TSH was still elevated during this admission, T4 low. Patient was started on an increased dose of levothyroxine 125mcg Daily. She was deemed stable for discharge with close follow up with her PMD as out-patient. She requested a refill on all of her medications. Patient agrees and understands plan. 1. DKA; resolved; Levemir 30U SC HS; Humalog 10U SC ACTID; hold pump until eval by specialist 2. Left lower lateral malleolus mass; continue and complete f/u as out-patient 3. Hx of Hypothyroid; Increase to Levothyroxine 125mcg Daily 4. Hx of ETOH abuse; abstinence 5. Hx of Brain Tumor s/p resection; continue home meds Upon Discharge: Patient is cleared for discharge as per Dr. Monge 1. Follow up with your primary care physician within 3 days. 2. Follow up with your Basic Combatant Swimmer within one week 3. Keep record of Finger stick glucose readings 3 times a day and bring to your child care associate teacher/PCP 4. Hold insulin pump for now. Use insulin coverage as ordered. See insulin pump specialist to ensure proper function prior to resuming pump. 5. Resume all other home meds. Increase dose of Levothyroxine as ordered. 6. All your prescriptions were sent to [facility] 7. Return to the ER with any concerning symptoms New Prescriptions: 1. Tricor 48mg PO Daily #30/0 2. Levothyroxine 125mcg PO Daily #30/0 3. Levemir 30U SC HS 4. Humalog 10U ACTID Refilled Prescriptions: 1. Gabapentin 300mg PO TID #21/0 2. Atenolol 12.5mg PO Daily #7/0 3. Depakote 500mg PO Daily #7/0 4. Lisinopril 5mg PO Daily #7/0 Discharge Exam - Head Exam Head Exam: ATRAUMATIC, NORMAL INSPECTION, NORMOCEPHALIC - Eye Exam Eye Exam: EOMI, Normal appearance. absent: Scleral icterus - ENT Exam ENT Exam: Mucous Membranes Moist - Respiratory Exam Respiratory Exam: Clear to PA & Lateral, NORMAL BREATHING PATTERN. absent: Chest Wall Tenderness, Decreased Breath Sounds, Rhonchi, Wheezes, Respiratory Distress - Cardiovascular Exam Cardiovascular Exam: RRR, +S1, +S2. absent: JVD - GI/Abdominal Exam GI & Abdominal Exam: Normal Bowel Sounds, Soft. absent: Distended, Firm, Guarding, Rebound, Rigid, Tenderness - Extremities Exam Extremities exam: normal inspection Additional comments: No calf tenderness, no edema - Back Exam Back exam: NORMAL INSPECTION. absent: paraspinal tenderness - Neurological Exam Neurological exam: Alert, Oriented x3 - Psychiatric Exam Psychiatric exam: Normal Affect, Normal Mood - Skin Skin Exam: Dry, Intact, Normal Color, Warm Discharge Plan - Discharge Medications Prescriptions: Atenolol [Tenormin] 12.5 mg PO DAILY #7 tab Divalproex [Depakote ER(ONCE DAILY)] 500 mg PO DAILY #7 ter Fenofibrate [Tricor] 48 mg PO DAILY #30 tab Gabapentin [Neurontin] 300 mg PO TID #21 cap Insulin Detemir [Levemir] 30 unit SC HS #1 vial Insulin Lispro [humALOG] 10 units SC ACTID #1 vial Levothyroxine [Synthroid] 125 mcg PO DAILY #30 tab Lisinopril [Zestril] 5 mg PO DAILY #7 tab - Follow Up Plan Condition: FAIR Disposition: HOME/ ROUTINE Instructions: How to Stop Smoking (GEN), Pneumococcal Vaccine for Adults (GEN) , Cigarette Smoking and Your Health (GEN), Diabetic Ketoacidosis (DC), Diabetic Foot Care (DC), Basic Carbohydrate Counting (GEN), Hyperlipidemia (DC) Additional Instructions: Patient is cleared for discharge as per Dr. Monge 1. Follow up with your primary care physician within 3 days. 2. Follow up with your Basic Combatant Swimmer within one week 3. Keep record of Finger stick glucose readings 3 times a day and bring to your child care associate teacher/PCP 4. Hold insulin pump for now. Use insulin coverage as ordered. See insulin pump specialist to ensure proper function prior to resuming pump. 5. Resume all other home meds. Increase dose of Levothyroxine as ordered. 6. All your prescriptions were sent to [facility] 7. Return to the ER with any concerning symptoms New Prescriptions: 1. Tricor 48mg PO Daily #30/0 2. Levothyroxine 125mcg PO Daily #30/0 3. Levemir 30U SC HS 4. Humalog 10U ACTID Refilled Prescriptions: 1. Gabapentin 300mg PO TID #21/0 2. Atenolol 12.5mg PO Daily #7/0 3. Depakote 500mg PO Daily #7/0 4. Lisinopril 5mg PO Daily #7/0 Referrals: Patsy Noland DO [Primary Care Provider] - <Titus Monge MD - Last Filed: 04/11/17 11:35> Provider - Provider Date of Admission: 04/08/17 21:22 Attending physician: Titus Monge MD Primary care physician: Patsy Noland DO Hospital Course - Lab Results Lab Results: Micro Results 04/08/17 21:26 Blood Blood Culture - Preliminary NO GROWTH AFTER 48 HOURS Most Recent Lab Values WBC 4.8 10^3/ul (4.5-11.0) 05/19/17 06:30 RBC 3.51 10^6/uL (3.5-6.1) 04/10/17 06:30 Hgb 11.8 gm/dL (12.0-16.0) L 04/10/17 06:30 Hct 33.2 % (36.0-48.0) L 04/10/17 06:30 MCV 94.6 fL (80.0-105.0) 04/10/17 06:30 MCH 33.6 pg (25.0-35.0) 04/10/17 06:30 MCHC 35.5 g/dl (31.0-37.0) 04/10/17 06:30 RDW 14.0 % (11.5-14.5) 04/10/17 06:30 Plt Count 234 10^3/uL (120.0-450.0) 04/10/17 06:30 MPV 9.8 fl (7.0-11.0) 04/10/17 06:30 Gran % 39.5 % (50.0-68.0) L 04/10/17 06:30 Lymph % (Auto) 50.1 % (22.0-35.0) H 04/10/17 06:30 Weakley % (Auto) 8.3 % (1.0-6.0) H 04/10/17 06:30 Eos % (Auto) 1.7 % (1.5-5.0) 04/10/17 06:30 Baso % (Auto) 0.4 % (0.0-3.0) 04/10/17 06:30 Gran # 1.90 (1.4-6.5) 04/10/17 06:30 Lymph # 2.4 (1.2-3.4) 04/10/17 06:30 Weakley # 0.4 (0.1-0.6) 04/10/17 06:30 Eos # 0.1 (0.0-0.7) 04/10/17 06:30 Baso # 0.02 K/mm3 (0.0-2.0) 04/10/17 06:30 PT 10.2 Seconds (9.9-11.8) 04/08/17 20:39 INR 0.94 (0.93-1.08) 04/08/17 20:39 APTT 32.2 Seconds (23.7-30.8) H 04/08/17 20:39 pO2 169 mm/Hg (30-55) H 04/08/17 20:39 VBG pH 7.13 (7.32-7.43) L* 04/08/17 20:39 VBG pCO2 16.0 (40-60) L* 04/08/17 20:39 VBG HCO3 5.3 mmol/l (21-28) L 04/08/17 20:39 VBG Total CO2 5.8 mmol.L (22-28) L 04/08/17 20:39 VBG O2 Sat (Calc) 98.7 % (40-65) H 04/08/17 20:39 VBG Base Excess -21.7 mmol/L (0.0-2.0) L 04/08/17 20:39 VBG Potassium 4.1 mmol/L (3.6-5.2) 04/08/17 20:39 Sodium 132.0 mmol/L (132-148) 04/08/17 20:39 Chloride 104.0 mmol/L (98-107) 04/08/17 20:39 Glucose 667 mg/dl (65-105) H* 04/08/17 20:39 Lactate 1.0 mmol/L (0.7-2.1) 04/08/17 20:39 FiO2 21.0 % 04/08/17 20:39 Sodium 138 mmol/L (132-148) 04/10/17 06:30 Potassium 3.5 mmol/L (3.6-5.0) L 04/10/17 06:30 Chloride 113 mmol/L (98-107) H 04/10/17 06:30 Carbon Dioxide 20 mmol/L (21-33) L 04/10/17 06:30 Anion Gap 9 (10-20) L 04/10/17 06:30 BUN 6 mg/dL (7-21) L 04/10/17 06:30 Creatinine 0.5 mg/dL (0.5-1.4) 04/10/17 06:30 Est GFR ( Amer) > 60 04/10/17 06:30 Est GFR (Non-Af Amer) > 60 04/10/17 06:30 POC Glucose (mg/dL) 103 mg/dL (65-110) 04/10/17 11:13 Random Glucose 389 mg/dL (70-110) H* D 04/10/17 06:30 Hemoglobin A1c 13.1 % (4.2-6.5) H 04/09/17 07:00 Calcium 7.8 mg/dL (8.4-10.5) L 04/10/17 06:30 Phosphorus 1.7 mg/dL (2.5-4.5) L 04/10/17 06:30 Magnesium 2.1 mg/dL (1.7-2.2) 04/08/17 20:39 Total Bilirubin 0.3 mg/dL (0.2-1.3) 04/10/17 06:30 AST 30 U/L (15-39) 04/10/17 06:30 ALT 58 U/L (7-56) H 04/10/17 06:30 Alkaline Phosphatase 75 U/L (38-133) 04/10/17 06:30 Total Protein 4.9 g/dL (5.8-8.3) L 04/10/17 06:30 Albumin 2.5 g/dL (3.0-4.8) L 04/10/17 06:30 Globulin 2.4 gm/dL 04/10/17 06:30 Albumin/Globulin Ratio 1.0 (1.1-1.8) L 04/10/17 06:30 Triglycerides 496 mg/dL (35-160) H 04/10/17 06:30 Cholesterol 246 mg/dL (130-200) H 04/10/17 06:30 LDL Cholesterol Direct 127 mg/dL (0-129) 04/10/17 06:30 HDL Cholesterol 34 mg/dL (29-60) 04/10/17 06:30 Thyroxine (T4) 3.7 ug/dL (5.5-11.0) L 04/10/17 06:30 TSH 3rd Generation 16.30 mIU/mL (0.46-4.68) H 04/10/17 06:30 Venous Blood Potassium 4.1 mmol/L (3.6-5.2) 04/08/17 20:39 Attending/Attestation - Attestation I have personally seen and examined this patient.: Yes I have fully participated in the care of the patient.: Yes I have reviewed all pertinent clinical information, including history, physical exam and plan: Yes Notes (Text): 04/11/17 11:34 Patient was seen and examined with medical office coordinator .Agreed with resident assessment and plan. 36 yrs old F with PMHx of IDDM was on insulin pump, hypothyroidism, bipolar disorder, alcohol abuse, and brain tumor s/p resection here for evaluation of nausea, vomiting and generalized weakness was found to have DKA. Patient was treated with IV hydration, Insulin, there was no evidence of infection. DKA has resolved .Patient insulin pump has been discontinued for now and patient has been started on Levimer and humolog insulin. This was discussed in detail with patient. Patient has Left lower lateral malleolus mass? Follow with Oncology aas out patient, will complete f/u as out-patient Management plan was discussed in detail with patient Education was provided.
[2017-04-10] MEDS ORDERED: Insulin Detemir 100 units/ml Vial (Levemir) SC SCH ×2 (22:00)
== END 2017-04-10 20:32 | disposition home or self-care (01) | DRG 294 ==
LOC: ED 19:54 → ERH 21:22 → CCU 04-09 00:48 → 5RSO 04-10 06:43
PROVIDERS: ADMIT Internal Medicine; ATTEND Internal Medicine
DX: E10.10 Type 1 diabetes mellitus with ketoacidosis without coma (principal); E10.42 Type 1 diabetes mellitus with diabetic polyneuropathy; E10.319 Type 1 diabetes mellitus with unspecified diabetic retinopathy without macular edema; I10 Essential (primary) hypertension; E03.9 Hypothyroidism, unspecified; F31.9 Bipolar disorder, unspecified; Z79.4 Long term (current) use of insulin; F10.10 Alcohol abuse, uncomplicated; F17.210 Nicotine dependence, cigarettes, uncomplicated; E78.5 Hyperlipidemia, unspecified; Z96.41 Presence of insulin pump (external) (internal); Z86.011 Personal history of benign neoplasm of the brain; Z90.49 Acquired absence of other specified parts of digestive tract; Z90.710 Acquired absence of both cervix and uterus; Z83.3 Family history of diabetes mellitus; Z82.49 Family history of ischemic heart disease and other diseases of the circulatory system

== ENCOUNTER 2017-06-25 12:28 | Inpatient (IN) | payer MEDICAID, OTHER ==
[2017-06-25 12:42] VITALS: BMI 26.4
--- NOTE | 2017-06-25 12:59 | ED PDOC ---
Arrival/HPI - General Chief Complaint: Headache Time Seen by Provider: 06/25/17 12:38 Historian: Patient - Critical Care Critical Care Minutes: 30 minutes - History of Present Illness Time/Duration: 1 week Symptom Onset: Gradual Symptom Course: Worsening Quality: Aching Severity Level: Moderate Associated Symptoms (Text): 06/25/17 12:56 Patient complains of approximately a one-week history of nausea vomiting and diarrhea. She has been taking her insulin. Her sugars had been fine until yesterday when it was 500. There is generalized weakness and fatigue with poor by mouth intake. She states she feels shaky and is breathing very fast and feels similar to when she was first diagnosed with diabetes approximately 18 months ago. There is no headache as in the triage notes. Past Medical History - Infectious Disease Hx of Infectious Diseases: None - Tetanus Immunization Tetanus Immunization: Unknown - Cardiac Hx Cardiac Disorders: No Hx Angina: No Hx Hypertension: Yes - Pulmonary Hx Respiratory Disorders: Yes Hx Pneumonia: Yes - Neurological Hx Neurological Disorder: Yes Hx Alzheimer's Disease: No HX Cerebrovascular Accident: No Hx Dementia: No Hx Dizziness: No Hx Meningitis: No Hx Migraine: No Hx Parkinson's Disease: No Hx Seizures: No Hx Transient Ischemic Attacks (TIA): No Other/Comment: benign brain mass - HEENT Hx HEENT Disorder: No Hx Blind: No Hx Cataracts: No Hx Deafness: No Hx Difficulty Chewing: No Hx Epistaxis: No Hx Glaucoma: No Hx Macular Degeneration: No - Renal Hx Renal Disorder: No Hx Dialysis: No Hx Kidney Stones: No Hx Neurogenic Bladder: No Hx Pyelonephritis: No Hx Renal Cancer: No Hx Renal Failure: No - Endocrine/Metabolic Hx Endocrine Disorders: Yes Hx Diabetes Mellitus Type 2: Yes Hx Hypothyroidism: Yes - Hematological/Oncological Hx Blood Transfusions: No Hx Blood Transfusion Reaction: No - Integumentary Hx Dermatological Disorder: No Hx Basal Cell Carcinoma: No Hx Eczema: No Hx Melanoma: No Hx Psoriasis: No Hx Squamous Cell Carcinoma: No - Musculoskeletal/Rheumatological Hx Musculoskeletal Disorders: No Hx Arthritis: No Hx Back Pain: No Hx Degenerative Joint Disease: No Hx Falls: No Hx Fractures: No Hx Gout: No Hx Herniated Disk: No Hx Myasthenia Gravis: No Hx Osteoarthritis: No Hx Osteomyelitis: No Hx Osteoporosis: No Hx Rhabdomyolysis: No Hx Spinal Stenosis: No Hx Unsteady Gait: No - Gastrointestinal Hx Gall Bladder Disease: No Hx Gastroesophageal Reflux: No Hx Ileostomy: No Hx Liver Failure: No Hx Pancreatitis: No HX Swallowing Problems: No - Genitourinary/Gynecological Hx Genitourinary Disorders: No Hx Hematuria: No Hx Incontinence: No Hx Sexually Transmitted Diseases: No Hx Urinary Tract Infection: No - Psychiatric Hx Anxiety: No Hx Bipolar Disorder: Yes Hx Depression: No Hx Hallucinations: No Hx Panic Disorder: No Hx Post Traumatic Stress Disorder: No Hx Substance Use: No - Surgical History Hx Cholecystectomy: Yes Other/Comment: brain surgery and hysterectomy. L ankle surgery and biopsy- RA - Anesthesia Hx Anesthesia: Yes Hx Anesthesia Reactions: No Hx Malignant Hyperthermia: No Family/Social History - Physician Review Nursing Documentation Reviewed: Yes Family/Social History: Unknown Family HX Smoking Status: Former Smoker (Quit smoking 2 weeks ago) Hx Alcohol Use: No (ETOH ABUSE) Hx Substance Use: No Allergies/Home Meds Allergies/Adverse Reactions: Allergies No Known Allergies Allergy (Verified 06/25/17 12:42) Home Medications: Home Meds Medication Instructions Recorded Confirmed Insulin Lispro [humALOG] 7 units SC PRN PRN 06/25/17 06/25/17 Review of Systems - Physician Review All systems were reviewed & negative as marked: Yes - Review of Systems Constitutional: Fatigue. absent: Fevers Respiratory: SOB. absent: Cough, Sputum, Wheezing Cardiovascular: absent: Chest Pain, Palpitations, Syncope Gastrointestinal: Diarrhea, Nausea, Vomiting, Anorexia. absent: Abdominal Pain Neurological: Dizziness. absent: Headache, Focal Weakness, Gait Changes Physical Exam Vital Signs Temp Pulse Resp BP Pulse Ox 06/25/17 12:48 98.1 F 116 H 20 128/89 97 Temperature: Afebrile Blood Pressure: Normal Pulse: Tachycardic Respiratory Rate: Normal Appearance: Positive for: Well-Appearing, Non-Toxic, Comfortable, Uncomfortable Pain Distress: None Mental Status: Positive for: Alert and Oriented X 3 Finger Stick Blood Glucose: 440 - Systems Exam Head: Present: Atraumatic, Normocephalic Pupils: Present: PERRL Extroacular Muscles: Present: EOMI Conjunctiva: Present: Normal Ears: Present: NORMAL TM, Normal Canal. No: Erythema Mouth: Present: Dry Pharnyx: No: ERYTHEMA, EXUDATE, TONSILS ENLARGED Neck: Present: Normal Range of Motion Respiratory/Chest: Present: Clear to Auscultation, Good Air Exchange, Decreased Breath Sounds. No: Respiratory Distress, Accessory Muscle Use Cardiovascular: Present: Regular Rate and Rhythm, Normal S1, S2, Tachycardic. No: Murmurs Abdomen: Present: Normal Bowel Sounds. No: Tenderness, Distention, Peritoneal Signs, Rebound, Guarding Upper Extremity: Present: Normal Inspection. No: Cyanosis, Edema Lower Extremity: Present: Normal Inspection. No: Edema Neurological: Present: GCS=15, CN II-XII Intact, Speech Normal, Motor Func Grossly Intact Skin: Present: Warm, Dry, Normal Color. No: Rashes Psychiatric: Present: Alert, Oriented x 3, Normal Insight, Normal Concentration Medical Decision Making ED Course and Treatment: 06/25/17 13:21 EKG shows normal sinus rhythm rate approximately 95 with Q waves inferiorly and nonspecific T-wave changes with no acute changes Report Date : 06/25/2017 14:09:43 Procedure: Chest Xray Dictator : Chaka Fuller MD IMPRESSION: No active disease. 06/25/17 14:33 wants the patient evaluated for ICU admission. Discussed with who will evaluate the patient in the emergency Department and make final disposition. - Lab Interpretations Lab Results: 06/25/17 13:30 06/25/17 13:30 Lab Results 06/25/17 14:50: Alcohol, Quantitative < 10 06/25/17 14:32: Amylase 59, Lipase 106 06/25/17 13:30: Sodium 132, Potassium 4.4, Chloride 96 L, Carbon Dioxide 11 L, Anion Gap 29 H, BUN 13, Creatinine 0.7, Est GFR ( Amer) > 60, Est GFR ( Non-Af Amer) > 60, Random Glucose 463 H*, Calcium 9.4, Total Bilirubin 0.6, AST 13 L, ALT 18, Alkaline Phosphatase 62, Lactate Dehydrogenase 312 L, Total Creatine Kinase 20 L, Troponin I < 0.01, NT-Pro-B Natriuret Pep 36.4, Total Protein 7.5, Albumin 4.5, Globulin 3.0, Albumin/Globulin Ratio 1.5 06/25/17 13:30: Urine Color Straw, Urine Appearance Clear, Urine pH 6.0, Ur Specific [place] 1.025, Urine Protein Negative, Urine Glucose (UA) >=1000, Urine Ketones >=80, Urine Blood Negative, Urine Nitrate Negative, Urine Bilirubin Negative, Urine Urobilinogen 0.2, Ur Leukocyte Esterase Negative 06/25/17 13:30: WBC 5.4, RBC 4.21, Hgb 14.3, Hct 40.0, MCV 95.0, MCH 34.0, MCHC 35.8, RDW 12.2, Plt Count 294, MPV 9.9, Gran % 45.1 L, Lymph % (Auto) 48.2 H, Peach % (Auto) 3.9, Eos % (Auto) 2.4, Baso % (Auto) 0.4, Gran # 2.43, Lymph # 2.6 , Peach # 0.2, Eos # 0.1, Baso # 0.02 - RAD Interpretation Radiology Orders: 06/25/17 12:59 CHEST PORTABLE [RAD] Stat - Medication Orders Current Medication Orders: Sodium Chloride (Sodium Chloride 0.9%) 1,000 mls @ 500 mls/hr IV ONCE ONE Stop: 06/25/17 16:34 Discontinued Medications Acetaminophen (Tylenol 325mg Tab) 650 mg PO STAT STA Stop: 06/25/17 14:36 Sodium Chloride (Sodium Chloride 0.9%) 1,000 mls @ 500 mls/hr IV ONCE ONE Stop: 06/25/17 14:59 Last Admin: 06/25/17 13:46 Dose: 500 mls/hr Insulin Human Regular (Humulin R) 10 units IV ONCE STA Stop: 06/25/17 13:01 Last Admin: 06/25/17 13:47 Dose: 10 units Ondansetron HCl (Zofran Inj) 4 mg IVP ONCE ONE Stop: 06/25/17 13:01 Last Admin: 06/25/17 13:46 Dose: 4 mg Ondansetron HCl (Zofran Inj) 4 mg IVP ONCE ONE Stop: 06/25/17 14:36 Pantoprazole Sodium (Protonix Inj) 40 mg IVP ONCE STA Stop: 06/25/17 13:01 Last Admin: 06/25/17 13:46 Dose: 40 mg Disposition/Present on Arrival - Present on Arrival Any Indicators Present on Arrival: No History of DVT/PE: No History of Uncontrolled Diabetes: Yes Urinary Catheter: No History of Decub. Ulcer: No History Surgical Site Infection Following: None - Disposition Have Diagnosis and Disposition been Completed?: Yes Diagnosis: Diabetic ketoacidosis Disposition: HOSPITALIZED Disposition Time: 15:28 Patient Plan: Admission, ICU Condition: CRITICAL Referrals: Patsy Noland DO [Primary Care Provider] - Follow up with primary Forms: [employer] ([employer])
[2017-06-25] MEDS ORDERED: Sodium Chloride 0.9% 1,000 ML IV ONE ×2 (13:00→14:35)
[2017-06-25] MEDS ORDERED: Insulin Regular 1 UNITS/0.01 ML ML IV STA (13:00)
[2017-06-25 13:53] LABS: URINE BILIRUBIN NEGATIVE (NEGATIVE); URINE BLOOD NEGATIVE (NEGATIVE); URINE GLUCOSE (UA) >=1000 mg/dL (NEGATIVE); URINE LEUKOCYTE ESTERASE NEGATIVE Leu/uL (NEGATIVE); URINE NITRATE NEGATIVE (NEGATIVE); URINE PROTEIN NEGATIVE mg/dL (<30 mg/dL); URINE UROBILINOGEN 0.2 E.U./dL (<1 E.U./dL)
[2017-06-25 13:54] LABS: URINE APPEARANCE CLEAR (CLEAR); URINE COLOR STRAW (YELLOW)
[2017-06-25 13:56] LABS: BASO # 0.02 K/mm3 (0.0-2.0); BASO % 0.4 % (0.0-3.0); EOS # 0.1 (0.0-0.7); EOS % 2.4 % (1.5-5.0); GRAN # 2.43 (1.4-6.5); GRAN % 45.1 % (50.0-68.0); HEMOGLOBIN 14.3 gm/dL (12.0-16.0); LYMPH # 2.6 (1.2-3.4); LYMPH % 48.2 % (22.0-35.0); MEAN CORPUSCULAR HGB CONC 35.8 g/dl (31.0-37.0); MEAN PLATELET VOLUME 9.9 fl (7.0-11.0); MONO # 0.2 (0.1-0.6); MONO % 3.9 % (1.0-6.0); PLATELET COUNT 294 10^3/uL (120.0-450.0); RBC 4.21 10^6/uL (3.5-6.1); RED CELL DISTRIBUTION WIDTH 12.2 % (11.5-14.5); WHITE BLOOD COUNT 5.4 10^3/ul (4.5-11.0)
[2017-06-25 14:05] LABS: ALB/GLOB RATIO 1.5 (1.1-1.8); ALBUMIN 4.5 g/dL (3.0-4.8); ALT/SGPT 18 U/L (7-56); AST/SGOT 13 U/L (15-39); BLOOD UREA NITROGEN 13 mg/dL (7-21); CALCIUM 9.4 mg/dL (8.4-10.5); GFR AFRICAN-AMERICAN > 60; GFR NON-AFRICAN AMERICAN > 60
--- NOTE | 2017-06-25 14:11 | RAD ---
HISTORY: sob COMPARISON: 04/10/2017 FINDINGS: LUNGS: No active pulmonary disease. PLEURA: No significant pleural effusion identified, no pneumothorax apparent. CARDIOVASCULAR: Normal. OSSEOUS STRUCTURES: No significant abnormalities. VISUALIZED UPPER ABDOMEN: Normal. OTHER FINDINGS: None. IMPRESSION: No active disease.
[2017-06-25 14:17] LABS: B-TYPE NATRIURETIC PEPTIDE 36.4 pg/mL (0-450)
[2017-06-25 14:18] LABS: TROPONIN I < 0.01 ng/mL
[2017-06-25 15:19] LABS: AMYLASE 59 U/L (35-125); LIPASE 106 U/L (23-300)
[2017-06-25] MEDS ORDERED: Insulin Regular 100 UNITS in Sodium Chloride 0.9% 99 ML IV PRN ×2 (15:32→15:44)
[2017-06-25] MEDS ORDERED: Sodium Chloride 0.9% 1,000 ML IV SCH ×2 (15:45)
[2017-06-25] MEDS ORDERED: Iohexol 240 (50 ml) ONE (15:55)
[2017-06-25] MEDS: Levothyroxine 125 MCG TAB PO SCH (16:22)
[2017-06-25] MEDS: Divalproex 500 mg ER (ONCE DAILY formulation) PO SCH (16:22)
[2017-06-25 16:37] LABS: BARBITURATES, UR NEGATIVE (NEGATIVE); BENZODIAZEPINES, UR NEGATIVE (NEGATIVE); OPIATES, UR NEGATIVE (NEGATIVE); PHENCYCLIDINE, UR NEGATIVE (NEGATIVE)
[2017-06-25 16:45] LABS: ARTERIAL BLOOD GAS HCO3 13.3 mmol/L (21-28); ARTERIAL BLOOD GAS HEMOGLOBIN 12.2 g/dL (11.7-17.4); ARTERIAL BLOOD GAS O2 CAPACITY 16.9 mL/dl (16-24); ARTERIAL BLOOD GAS O2 CONTENT 16.5 ML/dl (15-23); ARTERIAL BLOOD GAS O2 SAT 97.5 % (95-98); ARTERIAL BLOOD GAS PCO2 27 mm/Hg (35-45); ARTERIAL BLOOD GAS TCO2 14.1 mmol.L (22-28)
[2017-06-25 17:03] LABS: BLOOD UREA NITROGEN 13 mg/dL (7-21); CALCIUM 8.4 mg/dL (8.4-10.5); GFR AFRICAN-AMERICAN > 60; GFR NON-AFRICAN AMERICAN > 60; MAGNESIUM 1.2 mg/dL (1.7-2.2)
[2017-06-25] MEDS ORDERED: Sodium Chloride 0.9% 1,000 ML IV STA (17:16)
[2017-06-25] MEDS: Potassium Chloride 10 mEq ER Tab PO SCH (18:03)
--- NOTE | 2017-06-25 18:05 | CP.PCM.CON ---
<JACINTA ANDREW - Last Filed: 06/25/17 17:39> History of Present Illness - History of Present Illness History of Present Illness: Jacinta Andrew DO PGY1 - ICU Consult Note HPI: 36 yo F with PMH of DM-I, hypothyroidism, and a benign brain mass s/p resection many years ago. She presented to the ER complaining of one week of nausea, vomiting, diarrhea, anxiety, tremor, dry mouth, frequent urination, - similar to when she was first diagnosed with diabetes - and reports that she measured her blood glucose yesterday and found it to be 500. She denies noncompliance with her medications. Today, she was found to be hyperglycemic and acidotic with an elevated anion gap, glucosuria, ketonuria, and is being admitted to the ICU for initial treatment of DKA and close monitoring. She reports recent gastroenteritis, and denies recent alcohol use, drug use. She also denies dysuria, abdominal pain, headache, otalgia, rhinorrhea. She does admit to ankle surgery to biopsy a soft tissue mass approximately 2 weeks ago. PMH: As above PSH: Brain mass excision, Left ankle soft tissue biopsy Soc: Previous smoker, quit 2 weeks ago. Previous heavy drinker. Previously used illicits including cocaine and heroin, denies IVDU ALL: NKDA FHx: Unknown ROS: As Above Past Patient History - Infectious Disease Hx of Infectious Diseases: None - Tetanus Immunizations Tetanus Immunization: Unknown - Past Medical History & Family History Past Medical History?: Yes - Past Social History Smoking Status: Former Smoker (Quit smoking 2 weeks ago) - CARDIAC Hx Cardiac Disorders: No Hx Angina: No Hx Hypertension: Yes - PULMONARY Hx Respiratory Disorders: Yes Hx Pneumonia: Yes - NEUROLOGICAL Hx Neurological Disorder: Yes Hx Alzheimer's Disease: No HX Cerebrovascular Accident: No Hx Dementia: No Hx Dizziness: No Hx Meningitis: No Hx Migraine: No Hx Parkinson's Disease: No Hx Seizures: No Hx Transient Ischemic Attacks (TIA): No Other/Comment: benign brain mass - HEENT Hx HEENT Problems: No Hx Blind: No Hx Cataracts: No Hx Deafness: No Hx Difficulty Chewing: No Hx Epistaxis: No Hx Glaucoma: No Hx Macular Degeneration: No - RENAL Hx Chronic Kidney Disease: No Hx Dialysis: No Hx Kidney Stones: No Hx Neurogenic Bladder: No Hx Pyelonephritis: No Hx Renal (Kidney) Cancer: No Hx Renal Failure: No - ENDOCRINE/METABOLIC Hx Endocrine Disorders: Yes Hx Diabetes Mellitus Type 2: Yes Hx Hypothyroidism: Yes - HEMATOLOGICAL/ONCOLOGICAL Hx Blood Transfusions: No Hx Blood Transfusion Reaction: No - INTEGUMENTARY Hx Dermatological Problems: No Hx Basil Cell: No Hx Eczema: No Hx Melanoma: No Hx Psoriasis: No Hx Squamous Cell: No - MUSCULOSKELETAL/RHEUMATOLOGICAL Hx Musculoskeletal Disorders: No Hx Arthritis: No Hx Back Pain: No Hx Degenerative Joint Disease: No Hx Falls: No Hx Fractures: No Hx Gout: No Hx Herniated Disk: No Hx Myasthenia Gravis: No Hx Osteoarthritis: No Hx Osteomyelitis: No Hx Osteoporosis: No Hx Rhabdomyolysis: No Hx Spinal Stenosis: No Hx Unsteady Gait: No - GASTROINTESTINAL Hx Gall Bladder Disease: No Hx Gastroesophageal Reflux: No Hx Ileostomy: No Hx Liver Failure: No Hx Pancreatitis: No HX Swallowing Problems: No - GENITOURINARY/GYNECOLOGICAL Hx Genitourinary Disorders: No Hx Hematuria: No Hx Incontinence: No Hx Sexually Transmitted Disorders: No Hx Urinary Tract Infection: No - PSYCHIATRIC Hx Anxiety: No Hx Bipolar Disorder: Yes Hx Depression: No Hx Hallucinations: No Hx Panic Symptoms: No Hx Post Traumatic Stress Disorder: No Hx Substance Use: No - SURGICAL HISTORY Hx Cholecystectomy: Yes Other/Comment: brain surgery and hysterectomy. L ankle surgery and biopsy- RA - ANESTHESIA Hx Anesthesia: Yes Hx Anesthesia Reactions: No Hx Malignant Hyperthermia: No Meds Allergies/Adverse Reactions: Allergies Allergy/AdvReac Type Severity Reaction Status Date / Time No Known Allergies Allergy Verified 06/25/17 12:42 - Medications Medications: Current Medications Atenolol (Tenormin) 12.5 mg PO DAILY [facility] Last Admin: 06/25/17 16:05 Dose: Not Given Divalproex Sodium (Depakote Er(Once Daily)) 500 mg PO DAILY [facility] PRN Reason: Protocol Last Admin: 06/25/17 16:22 Dose: 500 mg Gabapentin (Neurontin) 300 mg PO TID [facility] PRN Reason: Protocol Last Admin: 06/25/17 17:22 Dose: 300 mg Sodium Chloride (Sodium Chloride 0.9%) 1,000 mls @ 250 mls/hr IV .Q4H [facility] Insulin Human Regular 100 (units/ Sodium Chloride) 100 mls @ 5 mls/hr IV .Q20H PRN; Protocol; 5 UNITS/HR PRN Reason: TITRATE PER MD ORDER Last Admin: 06/25/17 16:32 Dose: 4 units/hr, 4 mls/hr Sodium Chloride (Sodium Chloride 0.9%) 1,000 mls @ 999 mls/hr IV .Q1H1M STA Stop: 06/25/17 18:16 Levothyroxine Sodium (Synthroid) 125 mcg PO DAILY [facility] Last Admin: 06/25/17 16:22 Dose: 125 mcg Lisinopril (Zestril) 5 mg PO DAILY [facility] Ondansetron HCl (Zofran Inj) 4 mg IVP Q4H PRN PRN Reason: Nausea/Vomiting Pantoprazole Sodium (Protonix Inj) 40 mg IVP DAILY [facility] Physical Exam - Constitutional Appears: Non-toxic, No Acute Distress - Head Exam Head Exam: ATRAUMATIC, NORMOCEPHALIC - Eye Exam Eye Exam: EOMI, Normal appearance, PERRL - ENT Exam ENT Exam: Mucous Membranes Dry - Neck Exam Neck exam: Positive for: Normal Inspection. Negative for: Lymphadenopathy, Meningismus - Respiratory Exam Respiratory Exam: Clear to Auscultation Bilateral. absent: Rales, Rhonchi, Wheezes - Cardiovascular Exam Cardiovascular Exam: RRR, +S1, +S2 - GI/Abdominal Exam GI & Abdominal Exam: Normal Bowel Sounds, Soft. absent: Tenderness - Extremities Exam Additional comments: Scar on left lateral ankle - Back Exam Back exam: NORMAL INSPECTION. absent: CVA tenderness (L), CVA tenderness (R) - Neurological Exam Neurological exam: Alert, Oriented x3 - Psychiatric Exam Psychiatric exam: Normal Affect, Normal Mood - Skin Skin Exam: Dry Results - Vital Signs Recent Vital Signs: Last Vital Signs Temp 98.1 F 06/25/17 16:59 Pulse 90 06/25/17 17:10 Resp 23 06/25/17 17:10 BP 130/84 06/25/17 17:02 Pulse Ox 100 06/25/17 17:10 - Labs Result Diagrams: 06/25/17 13:30 06/25/17 16:46 Labs: Laboratory Results - last 24 hr 06/25/17 06/25/17 06/25/17 16:00 16:29 16:46 pCO2 27 L pO2 100.0 HCO3 13.3 L ABG pH 7.30 L ABG Total CO2 14.1 L ABG O2 Saturation 97.5 ABG O2 Content 16.5 ABG Base Excess -11.6 L ABG Hemoglobin 12.2 ABG Carboxyhemoglobin 1.6 H POC ABG HHb (Measured) 2.4 ABG Methemoglobin 0.8 ABG O2 Capacity 16.9 Hgb O2 Saturation 95.2 FiO2 21.0 Sodium 131 L Potassium 3.5 L Chloride 100 Carbon Dioxide 14 L Anion Gap 21 H BUN 13 Creatinine 0.6 Est GFR ( Amer) > 60 Est GFR (Non-Af Amer) > 60 Random Glucose 238 H Calcium 8.4 Phosphorus 2.7 Magnesium 1.2 L Urine Opiates Screen Negative Urine Methadone Screen Negative Ur Barbiturates Screen Negative Ur Phencyclidine Scrn Negative Ur Amphetamines Screen Negative U Benzodiazepines Scrn Negative U Oth Cocaine Metabols Negative U Cannabinoids Screen Negative Assessment & Plan - Assessment and Plan (Free Text) Assessment: 36 yo F with PMH of DM presenting to the ICU for initial treatment of DKA and close monitoring including Q1 accucheck. Plan: Neuro: - AAOx3, mentating well - Continue to monitor Pulm: - CTA b/l - Saturating well on RA - Maintain O2% >90% Cardio: - RRR on exam - Maintain MAP > 65 - Received 1.5 L fluid bolus in ED, give another 1.5L NS and then continue D5NS @150cc/hr GI: - NPO until anion gap closes - Protonix GI ppx Renal: - First BMP results show improvement in hypoglycemia, will switch maintenance fluid to D5NS - Q4 BMPs - Potassium 3.5 on first BMP after fluid bolus, repleted with 40mEq KCl PO, continue 40mEq TID - Monitor I's and O's - Monitor and replete electrolytes as needed Heme: - H/H stable - Hemodynamically stable, no active bleeding ID: - Afebrile, no leukocytosis - Continues to have diarrhea, likely 2/2 viral enteritis - Continue to monitor Endo: - DKA, already improving after fluid bolus, last BMP shows glucose <250, anion gap decreasing, bicarbonate increasing - Workup pending for inciting factor, though possibly 2/2 to viral gastroenteritis - Q1 accucheck - Start insulin drip on DKA protocol, will switch to basal insulin and sliding scale after resolution of anion gap - Start 1.5L bolus then maintenance with D5NS to maintain euglycemia - Continue to monitor Patient seen, reviewed, and discussed with attending <Yumi Ferris MD - Last Filed: 06/26/17 12:41> Meds - Medications Medications: Current Medications Acetaminophen (Tylenol 325mg Tab) 650 mg PO Q6H PRN PRN Reason: Headache Last Admin: 06/26/17 10:56 Dose: 650 mg Atenolol (Tenormin) 12.5 mg PO DAILY [facility] Last Admin: 06/26/17 09:46 Dose: Not Given Divalproex Sodium (Depakote Er(Once Daily)) 500 mg PO DAILY [facility] PRN Reason: Protocol Last Admin: 06/26/17 09:46 Dose: 500 mg Gabapentin (Neurontin) 300 mg PO TID [facility] PRN Reason: Protocol Last Admin: 06/26/17 09:46 Dose: 300 mg Insulin Human Regular 100 (units/ Sodium Chloride) 100 mls @ 5 mls/hr IV .Q20H PRN; Protocol; 5 UNITS/HR PRN Reason: TITRATE PER MD ORDER Last Titration: 06/25/17 20:40 Dose: 1.5 units/hr, 1.5 mls/hr Dextrose/Sodium Chloride (Dextrose 5%/0.9% Ns 1000 Ml) 1,000 mls @ 150 mls/hr IV .Q6H40M [facility] Last Admin: 06/26/17 01:00 Dose: 150 mls/hr Insulin Detemir (Levemir) 30 unit SC HS [facility] Last Admin: 06/25/17 22:59 Dose: 30 unit Insulin Human Regular (Humulin R Low) 0 units SC Q2H [facility] PRN Reason: Protocol Last Admin: 06/26/17 12:25 Dose: Not Given Levothyroxine Sodium (Synthroid) 125 mcg PO DAILY [facility] Last Admin: 06/26/17 09:46 Dose: 125 mcg Lisinopril (Zestril) 5 mg PO DAILY [facility] Last Admin: 06/26/17 09:47 Dose: Not Given Ondansetron HCl (Zofran Inj) 4 mg IVP Q4H PRN PRN Reason: Nausea/Vomiting Last Admin: 06/26/17 08:37 Dose: 4 mg Pantoprazole Sodium (Protonix Inj) 40 mg IVP DAILY [facility] Last Admin: 08/04/17 09:44 Dose: 40 mg Potassium Chloride (Klor-Con 10) 40 meq PO TID [facility] Last Admin: 06/26/17 09:46 Dose: 40 meq Zolpidem Tartrate (Ambien) 5 mg PO HS PRN; Protocol PRN Reason: Insomnia Last Admin: 06/25/17 22:59 Dose: 5 mg Results - Vital Signs Recent Vital Signs: Last Vital Signs Temp 97.8 F 06/26/17 04:00 Pulse 92 H 06/26/17 10:20 Resp 12 06/26/17 10:10 BP 107/68 06/26/17 10:00 Pulse Ox 98 06/26/17 10:20 - Labs Result Diagrams: 06/26/17 05:08 06/26/17 12:05 Labs: Laboratory Results - last 24 hr 06/25/17 06/25/17 06/25/17 16:00 16:29 16:46 WBC RBC Hgb Hct MCV MCH MCHC RDW Plt Count MPV Gran % Lymph % (Auto) Carbon % (Auto) Eos % (Auto) Baso % (Auto) Gran # Lymph # Carbon # Eos # Baso # pCO2 27 L pO2 100.0 HCO3 13.3 L ABG pH 7.30 L ABG Total CO2 14.1 L ABG O2 Saturation 97.5 ABG O2 Content 16.5 ABG Base Excess -11.6 L ABG Hemoglobin 12.2 ABG Carboxyhemoglobin 1.6 H POC ABG HHb (Measured) 2.4 ABG Methemoglobin 0.8 ABG O2 Capacity 16.9 Hgb O2 Saturation 95.2 FiO2 21.0 Sodium 131 L Potassium 3.5 L Chloride 100 Carbon Dioxide 14 L Anion Gap 21 H BUN 13 Creatinine 0.6 Est GFR ( Amer) > 60 Est GFR (Non-Af Amer) > 60 POC Glucose (mg/dL) Random Glucose 238 H Calcium 8.4 Phosphorus 2.7 Magnesium 1.2 L Triglycerides Cholesterol LDL Cholesterol Direct HDL Cholesterol TSH 3rd Generation Urine Opiates Screen Negative Urine Methadone Screen Negative Ur Barbiturates Screen Negative Ur Phencyclidine Scrn Negative Ur Amphetamines Screen Negative U Benzodiazepines Scrn Negative U Oth Cocaine Metabols Negative U Cannabinoids Screen Negative 06/25/17 06/25/17 06/25/17 17:49 18:47 19:31 WBC RBC Hgb Hct MCV MCH MCHC RDW Plt Count MPV Gran % Lymph % (Auto) Carbon % (Auto) Eos % (Auto) Baso % (Auto) Gran # Lymph # Carbon # Eos # Baso # pCO2 pO2 HCO3 ABG pH ABG Total CO2 ABG O2 Saturation ABG O2 Content ABG Base Excess ABG Hemoglobin ABG Carboxyhemoglobin POC ABG HHb (Measured) ABG Methemoglobin ABG O2 Capacity Hgb O2 Saturation FiO2 Sodium Potassium Chloride Carbon Dioxide Anion Gap BUN Creatinine Est GFR ( Amer) Est GFR (Non-Af Amer) POC Glucose (mg/dL) 194 H 161 H 130 H Random Glucose Calcium Phosphorus Magnesium Triglycerides Cholesterol LDL Cholesterol Direct HDL Cholesterol TSH 3rd Generation Urine Opiates Screen Urine Methadone Screen Ur Barbiturates Screen Ur Phencyclidine Scrn Ur Amphetamines Screen U Benzodiazepines Scrn U Oth Cocaine Metabols U Cannabinoids Screen 06/25/17 06/25/17 06/25/17 20:27 20:38 21:44 WBC RBC Hgb Hct MCV MCH MCHC RDW Plt Count MPV Gran % Lymph % (Auto) Carbon % (Auto) Eos % (Auto) Baso % (Auto) Gran # Lymph # Carbon # Eos # Baso # pCO2 pO2 HCO3 ABG pH ABG Total CO2 ABG O2 Saturation ABG O2 Content ABG Base Excess ABG Hemoglobin ABG Carboxyhemoglobin POC ABG HHb (Measured) ABG Methemoglobin ABG O2 Capacity Hgb O2 Saturation FiO2 Sodium 134 Potassium 3.3 L Chloride 107 Carbon Dioxide 19 L Anion Gap 11 BUN 10 Creatinine 0.5 Est GFR ( Amer) > 60 Est GFR (Non-Af Amer) > 60 POC Glucose (mg/dL) 133 H 117 H Random Glucose 111 H Calcium 7.5 L Phosphorus Magnesium Triglycerides Cholesterol LDL Cholesterol Direct HDL Cholesterol TSH 3rd Generation Urine Opiates Screen Urine Methadone Screen Ur Barbiturates Screen Ur Phencyclidine Scrn Ur Amphetamines Screen U Benzodiazepines Scrn U Oth Cocaine Metabols U Cannabinoids Screen 06/25/17 06/25/17 06/26/17 22:43 23:32 00:38 WBC RBC Hgb Hct MCV MCH MCHC RDW Plt Count MPV Gran % Lymph % (Auto) Carbon % (Auto) Eos % (Auto) Baso % (Auto) Gran # Lymph # Carbon # Eos # Baso # pCO2 pO2 HCO3 ABG pH ABG Total CO2 ABG O2 Saturation ABG O2 Content ABG Base Excess ABG Hemoglobin ABG Carboxyhemoglobin POC ABG HHb (Measured) ABG Methemoglobin ABG O2 Capacity Hgb O2 Saturation FiO2 Sodium Potassium Chloride Carbon Dioxide Anion Gap BUN Creatinine Est GFR ( Amer) Est GFR (Non-Af Amer) POC Glucose (mg/dL) 125 H 128 H 145 H Random Glucose Calcium Phosphorus Magnesium Triglycerides Cholesterol LDL Cholesterol Direct HDL Cholesterol TSH 3rd Generation Urine Opiates Screen Urine Methadone Screen Ur Barbiturates Screen Ur Phencyclidine Scrn Ur Amphetamines Screen U Benzodiazepines Scrn U Oth Cocaine Metabols U Cannabinoids Screen 06/26/17 06/26/17 06/26/17 02:34 04:34 05:08 WBC 4.3 L D RBC 3.54 Hgb 11.6 L Hct 33.5 L MCV 94.6 MCH 32.8 MCHC 34.6 RDW 12.4 Plt Count 233 MPV 9.6 Gran % 32.1 L Lymph % (Auto) 57.9 H Carbon % (Auto) 6.5 H Eos % (Auto) 3.0 Baso % (Auto) 0.5 Gran # 1.38 L Lymph # 2.5 Carbon # 0.3 Eos # 0.1 Baso # 0.02 pCO2 pO2 HCO3 ABG pH ABG Total CO2 ABG O2 Saturation ABG O2 Content ABG Base Excess ABG Hemoglobin ABG Carboxyhemoglobin POC ABG HHb (Measured) ABG Methemoglobin ABG O2 Capacity Hgb O2 Saturation FiO2 Sodium Potassium Chloride Carbon Dioxide Anion Gap BUN Creatinine Est GFR ( Amer) Est GFR (Non-Af Amer) POC Glucose (mg/dL) 173 H 165 H Random Glucose Calcium Phosphorus Magnesium Triglycerides Cholesterol LDL Cholesterol Direct HDL Cholesterol TSH 3rd Generation Urine Opiates Screen Urine Methadone Screen Ur Barbiturates Screen Ur Phencyclidine Scrn Ur Amphetamines Screen U Benzodiazepines Scrn U Oth Cocaine Metabols U Cannabinoids Screen 06/26/17 06/26/17 06/26/17 05:35 05:35 06:27 WBC RBC Hgb Hct MCV MCH MCHC RDW Plt Count MPV Gran % Lymph % (Auto) Carbon % (Auto) Eos % (Auto) Baso % (Auto) Gran # Lymph # Carbon # Eos # Baso # pCO2 pO2 HCO3 ABG pH ABG Total CO2 ABG O2 Saturation ABG O2 Content ABG Base Excess ABG Hemoglobin ABG Carboxyhemoglobin POC ABG HHb (Measured) ABG Methemoglobin ABG O2 Capacity Hgb O2 Saturation FiO2 Sodium 137 Potassium 3.1 L Chloride 111 H Carbon Dioxide 19 L Anion Gap 10 BUN 9 Creatinine 0.6 Est GFR ( Amer) > 60 Est GFR (Non-Af Amer) > 60 POC Glucose (mg/dL) 186 H Random Glucose 144 H Calcium 7.3 L Phosphorus Magnesium 1.4 L Triglycerides 273 H Cholesterol 189 LDL Cholesterol Direct 104 HDL Cholesterol 34 TSH 3rd Generation 32.40 H Urine Opiates Screen Urine Methadone Screen Ur Barbiturates Screen Ur Phencyclidine Scrn Ur Amphetamines Screen U Benzodiazepines Scrn U Oth Cocaine Metabols U Cannabinoids Screen 06/26/17 06/26/17 06/26/17 07:50 10:10 12:05 WBC RBC Hgb Hct MCV MCH MCHC RDW Plt Count MPV Gran % Lymph % (Auto) Carbon % (Auto) Eos % (Auto) Baso % (Auto) Gran # Lymph # Carbon # Eos # Baso # pCO2 pO2 HCO3 ABG pH ABG Total CO2 ABG O2 Saturation ABG O2 Content ABG Base Excess ABG Hemoglobin ABG Carboxyhemoglobin POC ABG HHb (Measured) ABG Methemoglobin ABG O2 Capacity Hgb O2 Saturation FiO2 Sodium 136 Potassium 3.2 L Chloride 109 H Carbon Dioxide 18 L Anion Gap 12 BUN 9 Creatinine 0.5 Est GFR ( Amer) > 60 Est GFR (Non-Af Amer) > 60 POC Glucose (mg/dL) 130 H 191 H Random Glucose 128 H Calcium 7.7 L Phosphorus Magnesium Triglycerides Cholesterol LDL Cholesterol Direct HDL Cholesterol TSH 3rd Generation Urine Opiates Screen Urine Methadone Screen Ur Barbiturates Screen Ur Phencyclidine Scrn Ur Amphetamines Screen U Benzodiazepines Scrn U Oth Cocaine Metabols U Cannabinoids Screen Attending/Attestation - Attestation I have personally seen and examined this patient.: Yes I have fully participated in the care of the patient.: Yes I have reviewed all pertinent clinical information: Yes Notes (Text): 06/26/17 12:40 36 y/o F w/ DKA Follow DKA protocol. 4L of NS then 150ml/hr Replace K as it reaches 4, replace MG Q1 accuchecks q 4 bmp Continue insulin drip 1 as per protocol. When AG closes transition to Levimir as calculated by the insulin use on the drip. CT abd / pelvis to search of any colitis . dvt p cc time 65 min
[2017-06-25] MEDS ORDERED: Pneumococcal 23-Valent Vaccine IM ONE (18:12)
--- NOTE | 2017-06-25 18:46 | CP.PCM.HP ---
<Danielle Hernandez - Last Filed: 06/25/17 20:02> History of Present Illness - History of Present Illness History of Present Illness: HPI: Patient is a 36 year old woman with a PMH of IDDM, hypothyroidism, HTN, bipolar disorder, alcohol abuse, and brain tumor s/p resection, presents with a 6 day history of nausea, vomiting, and diarrhea. Associated symptoms include burning midepigastric pain, stomach cramping, vision changes, slurred speech, heavy breathing, unsteady gait, dizziness, frequent urination, thirst and dry mouth. She states that she has been taking all her medications, including her insulin, normally. She denies fevers, chills, burning with urination and falls. She has been admitted in the past for DKA and uncontrolled glucose levels. Initial labs suggest that the patient is in DKA, random glucose is 463 and anion gap is 29. Patient is being admitted to the ICU for monitoring. Patient states her usual "lows are 120s and highs are unreadable" PMH: IDDM, hypothyroidism, bipolar disorder, alcohol abuse, and Right frontal brain tumor s/p resection PSH: tubal ligation, hysterectomy, brain tumor resection, cholecystectomy, left ankle surgery (April 2017) Social: former smoker - 10 cigs/day (quit 2 weeks ago), former alcohol abuse, former cocaine use FMH: grandparents- heart disease, mother- heart disease Allergies: none Meds: Tricor, atenolol, lisinopril, synthroid, gabapentin, depakote, humalog, metformin PMD: Dr. Noland, [facility] ROS: Constitutional: + generalized weakness, pt denies fever, chills ENT: + left ear and neck pain, slurred speech, dry mouth, pt denies dysphagia, otalgia, hearing deficit, rhinorrhea Eyes: + vision changes, pt denies sudden loss of vision MSK: pt denies muscle stiffness, joint pain, extremity cramping Cardio: pt denies heart murmur, cp Pulm: + heavy breathing, pt denies cough, hemoptysis, wheeze GI: + n/v/d, abdominal cramping, acid reflux, PT denies loss of appetite, abdominal pain, constipation, melena, : + urinary frequency, pt denies burning on urination, hematuria, urinary urgency Neuro: + headache,dizziness, unsteady gait, pt denies paresis, paresthesia, numbness, tingling Derm: pt denies nail changes Endo: polydipsia, pt denies night sweats, Psych: pt denies anxiety, depression, mood changes Present on Admission - Present on Admission Any Indicators Present on Admission: Yes History of DVT/PE: No History of Uncontrolled Diabetes: Yes Urinary Catheter: No Review of Systems - Constitutional Constitutional: As Per HPI - EENT Eyes: As Per HPI Ears: As Per HPI - Cardiovascular Cardiovascular: As Per HPI - Respiratory Respiratory: As Per HPI - Gastrointestinal Gastrointestinal: As Per HPI - Genitourinary Genitourinary: As Per HPI - Integumentary Integumentary: As Per HPI - Neurological Neurological: As Per HPI - Hematologic/Lymphatic Hematologic: As Per HPI Past Patient History - Infectious Disease Hx of Infectious Diseases: None - Tetanus Immunizations Tetanus Immunization: Unknown - Past Medical History & Family History Past Medical History?: Yes - Past Social History Smoking Status: Former Smoker (Quit smoking 2 weeks ago) - CARDIAC Hx Cardiac Disorders: No Hx Angina: No Hx Hypertension: Yes - PULMONARY Hx Respiratory Disorders: Yes Hx Pneumonia: Yes - NEUROLOGICAL Hx Neurological Disorder: Yes Hx Alzheimer's Disease: No HX Cerebrovascular Accident: No Hx Dementia: No Hx Dizziness: No Hx Meningitis: No Hx Migraine: No Hx Parkinson's Disease: No Hx Seizures: No Hx Transient Ischemic Attacks (TIA): No Other/Comment: benign brain mass - HEENT Hx HEENT Problems: No Hx Blind: No Hx Cataracts: No Hx Deafness: No Hx Difficulty Chewing: No Hx Epistaxis: No Hx Glaucoma: No Hx Macular Degeneration: No - RENAL Hx Chronic Kidney Disease: No Hx Dialysis: No Hx Kidney Stones: No Hx Neurogenic Bladder: No Hx Pyelonephritis: No Hx Renal (Kidney) Cancer: No Hx Renal Failure: No - ENDOCRINE/METABOLIC Hx Endocrine Disorders: Yes Hx Diabetes Mellitus Type 2: Yes Hx Hypothyroidism: Yes - HEMATOLOGICAL/ONCOLOGICAL Hx Blood Transfusions: No Hx Blood Transfusion Reaction: No - INTEGUMENTARY Hx Dermatological Problems: No Hx Basil Cell: No Hx Eczema: No Hx Melanoma: No Hx Psoriasis: No Hx Squamous Cell: No - MUSCULOSKELETAL/RHEUMATOLOGICAL Hx Musculoskeletal Disorders: No Hx Arthritis: No Hx Back Pain: No Hx Degenerative Joint Disease: No Hx Falls: No Hx Fractures: No Hx Gout: No Hx Herniated Disk: No Hx Myasthenia Gravis: No Hx Osteoarthritis: No Hx Osteomyelitis: No Hx Osteoporosis: No Hx Rhabdomyolysis: No Hx Spinal Stenosis: No Hx Unsteady Gait: No - GASTROINTESTINAL Hx Gall Bladder Disease: No Hx Gastroesophageal Reflux: No Hx Ileostomy: No Hx Liver Failure: No Hx Pancreatitis: No HX Swallowing Problems: No - GENITOURINARY/GYNECOLOGICAL Hx Genitourinary Disorders: No Hx Hematuria: No Hx Incontinence: No Hx Sexually Transmitted Disorders: No Hx Urinary Tract Infection: No - PSYCHIATRIC Hx Anxiety: No Hx Bipolar Disorder: Yes Hx Depression: No Hx Hallucinations: No Hx Panic Symptoms: No Hx Post Traumatic Stress Disorder: No Hx Substance Use: No - SURGICAL HISTORY Hx Cholecystectomy: Yes Other/Comment: brain surgery and hysterectomy. L ankle surgery and biopsy- RA - ANESTHESIA Hx Anesthesia: Yes Hx Anesthesia Reactions: No Hx Malignant Hyperthermia: No Meds Allergies/Adverse Reactions: Allergies Allergy/AdvReac Type Severity Reaction Status Date / Time No Known Allergies Allergy Verified 06/25/17 12:42 Physical Exam - Additional Findings Additional findings: Constitutional: a&o x 4, lethargy Head and Neck: neck supple, no jvd, trachea midline, carotid midline, no cervical/head mass Eyes: fani, nonicteric sclera, eom intact ENT: auditory acuity grossly intact, throat not congested, no nasal deformity Cardio: rrr, no m/r/g, no carotid bruit, nml s1, s2 Pulm: no accessory muscle use, equal nml breath sounds bilaterally, ctab Abd: + tenderness, s/nd, nbs x 4 q, no palpable masses Derm: no rashes, no ulcers, Extr: no cyanosis, no edema, no calf tenderness, no lesions, no varicosities Neuro: cn II-XII grossly intact, ue and le 5/5 muscle strength bilaterally, no los ue, le bilaterally and core Results - Vital Signs Recent Vital Signs: Last Vital Signs Temp 98.1 F 06/25/17 18:01 Pulse 92 H 06/25/17 18:01 Resp 16 06/25/17 18:01 BP 130/84 06/25/17 18:01 Pulse Ox 100 06/25/17 17:10 - Labs Result Diagrams: 06/25/17 13:30 06/25/17 16:46 Labs: Laboratory Results - last 24 hr 06/25/17 06/25/17 06/25/17 16:00 16:29 16:46 pCO2 27 L pO2 100.0 HCO3 13.3 L ABG pH 7.30 L ABG Total CO2 14.1 L ABG O2 Saturation 97.5 ABG O2 Content 16.5 ABG Base Excess -11.6 L ABG Hemoglobin 12.2 ABG Carboxyhemoglobin 1.6 H POC ABG HHb (Measured) 2.4 ABG Methemoglobin 0.8 ABG O2 Capacity 16.9 Hgb O2 Saturation 95.2 FiO2 21.0 Sodium 131 L Potassium 3.5 L Chloride 100 Carbon Dioxide 14 L Anion Gap 21 H BUN 13 Creatinine 0.6 Est GFR ( Amer) > 60 Est GFR (Non-Af Amer) > 60 Random Glucose 238 H Calcium 8.4 Phosphorus 2.7 Magnesium 1.2 L Urine Opiates Screen Negative Urine Methadone Screen Negative Ur Barbiturates Screen Negative Ur Phencyclidine Scrn Negative Ur Amphetamines Screen Negative U Benzodiazepines Scrn Negative U Oth Cocaine Metabols Negative U Cannabinoids Screen Negative Assessment & Plan - Assessment and Plan (Free Text) Assessment: 36 year old woman admitted for DKA with a PMH of IDDM, hypothyroidism, HTN, bipolar disorder, alcohol abuse, and brain tumor s/p resection. PT presents with nausea, vomiting, and diarrhea Plan: Admit to ICU Diabetic Ketoacidosis Accucheck IVF, Insulin drip Monitor anion gap, f/u electrolytes, monitor glucose levels Monitor Mental Status Random glucose- 463, Anion Gap- 29, Potassium- 4.4 Diet: NPO monitor I & Os Zofran for N/V ID: f/u stool culture pending to r/o C. diff colitis etiology Diabetes Diabetic education and central office supervisor consult ordered Hypertension Continue lisinopril, atenolol Hyperthyroidism monitor TSH, Thyroid levels Continue synthroid Bipolar disorder Continue depakote GI PPx Protonix - Date & Time Date: 06/25/17 Time: 17:08 <Lexi Khan - Last Filed: 06/27/17 15:25> Results - Vital Signs Recent Vital Signs: Last Vital Signs Temp 98.1 F 06/27/17 08:20 Pulse 93 H 06/27/17 08:20 Resp 20 06/27/17 08:20 BP 97/73 L 08/05/17 11:05 Pulse Ox 100 06/27/17 08:20 - Labs Result Diagrams: 06/26/17 05:08 06/26/17 20:30 Labs: Laboratory Results - last 24 hr 06/26/17 06/26/17 06/26/17 15:39 16:25 20:30 Sodium 134 133 Potassium 4.1 4.5 Chloride 110 H 107 Carbon Dioxide 17 L 19 L Anion Gap 11 12 BUN 9 9 Creatinine 0.6 0.7 Est GFR ( Amer) > 60 > 60 Est GFR (Non-Af Amer) > 60 > 60 POC Glucose (mg/dL) 163 H Random Glucose 151 H 281 H Calcium 7.9 L 7.9 L 06/26/17 21:32 Sodium Potassium Chloride Carbon Dioxide Anion Gap BUN Creatinine Est GFR ( Amer) Est GFR (Non-Af Amer) POC Glucose (mg/dL) 343 H Random Glucose Calcium Attending/Attestation - Attestation I have personally seen and examined this patient.: Yes I have fully participated in the care of the patient.: Yes I have reviewed all pertinent clinical information: Yes Notes (Text): 06/27/17 15:23 attending note; Patient seen and examined with resident in ER. Patient is a 36 year old woman with the PMH of IDDM, hypothyroidism, HTN, bipolar disorder, alcohol abuse, and brain tumor s/p resection, presents with a 6 day history of nausea, vomiting, and diarrhea. patient was found to be in DKA. Started on IV fluids, Insulin drip. supplement electrolytes. Nausea or vomiting; started on IV Zofran and Protonix. CT abdomen and pelvis ordered. Diarrhea; recent use of anti-biotics. Stool studies ordered. monitor the patient closely in ICU. Upon discharge the patient will follow-up PMD .
[2017-06-25] MEDS: Dextrose 5%/0.9% NS 1,000 ML IV SCH (19:19)
[2017-06-25 20:39] LABS: BLOOD UREA NITROGEN 10 mg/dL (7-21); CALCIUM 7.5 mg/dL (8.4-10.5); GFR AFRICAN-AMERICAN > 60; GFR NON-AFRICAN AMERICAN > 60
[2017-06-25] MEDS: Insulin Detemir 100 units/ml Vial (Levemir) SC SCH (22:59)
[2017-06-25] MEDS: Insulin Reg-LOW-Coverage SC SCH (23:15)
[2017-06-26] MEDS: Insulin Reg-LOW-Coverage SC SCH ×11 (01:00→22:11)
[2017-06-26] MEDS: Dextrose 5%/0.9% NS 1,000 ML IV SCH (01:00)
[2017-06-26 07:20] LABS: BLOOD UREA NITROGEN 9 mg/dL (7-21); CALCIUM 7.3 mg/dL (8.4-10.5); GFR AFRICAN-AMERICAN > 60; GFR NON-AFRICAN AMERICAN > 60; HDL CHOLESTEROL 34 mg/dL (29-60); MAGNESIUM 1.4 mg/dL (1.7-2.2)
[2017-06-26 07:31] LABS: LDL CHOLESTEROL 104 mg/dL (0-129)
--- NOTE | 2017-06-26 07:34 | CT ---
PROCEDURE: CT Abdomen and Pelvis with contrast HISTORY: r/o colitis COMPARISON: 10/12/2015. TECHNIQUE: CT scan of the abdomen and pelvis was performed without intravenous administration of contrast. Oral contrast was administered. Coronal and sagittal reformatted images were obtained. Radiation dose: Total exam DLP = 344.87 mGy-cm. This CT exam was performed using one or more of the following dose reduction techniques: Automated exposure control, adjustment of the mA and/or kV according to patient size, and/or use of iterative reconstruction technique. FINDINGS: LOWER THORAX: There is mild subsegmental atelectasis in the lung base. LIVER: The liver is normal in size. No gross lesion or ductal dilatation. GALLBLADDER AND BILE DUCTS: Surgically absent. PANCREAS: Normal in size. No gross lesion or ductal dilatation. SPLEEN: Normal in size. ADRENALS: Normal in size without discrete nodule. KIDNEYS AND URETERS: Normal in size without nephrolithiasis. No hydronephrosis. No solid mass. VASCULATURE: No aortic aneurysm. BOWEL: The small bowel loops are normal in caliber. There is diffuse circumferential mural thickening in the colon with mild pericolonic inflammatory changes, worse in the ascending colon. There is no bowel dilatation or obstruction APPENDIX: Normal appendix. PERITONEUM: No free fluid. No free air. LYMPH NODES: No enlarged lymph nodes. BLADDER: Normal in appearance. REPRODUCTIVE: The uterus is not visualized and may be surgically absent. BONES: No acute fracture. Within normal limits for the patient's age OTHER FINDINGS: None. IMPRESSION: Findings are most compatible with nonspecific diffuse infectious/ inflammatory colitis. No evidence of perforation or bowel obstruction. A preliminary report was provided by [facility].
[2017-06-26] MEDS ORDERED: Magnesium Sulfate 2 GM in Sodium Chloride 0.9% 100 ML IVPB ONE ×2 (07:46→09:30)
--- NOTE | 2017-06-26 08:55 | CARD ---
APPROVED REPORT EKG Measurement Heart [id number] AR [id number] <Conclusion> Normal sinus rhythm Possible Left atrial enlargement Small q waves 2,3,F NSSTW changes Prolonged QTc No change
[2017-06-26 09:26] LABS: BASO # 0.02 K/mm3 (0.0-2.0); BASO % 0.5 % (0.0-3.0); EOS # 0.1 (0.0-0.7); GRAN # 1.38 (1.4-6.5); GRAN % 32.1 % (50.0-68.0); HEMOGLOBIN 11.6 gm/dL (12.0-16.0); LYMPH # 2.5 (1.2-3.4); LYMPH % 57.9 % (22.0-35.0); MEAN CELL VOLUME 94.6 fL (80.0-105.0); MEAN CORPUSCULAR HEMOGLOBIN 32.8 pg (25.0-35.0); MEAN CORPUSCULAR HGB CONC 34.6 g/dl (31.0-37.0); MEAN PLATELET VOLUME 9.6 fl (7.0-11.0); MONO # 0.3 (0.1-0.6); MONO % 6.5 % (1.0-6.0); PLATELET COUNT 233 10^3/uL (120.0-450.0); RBC 3.54 10^6/uL (3.5-6.1); RED CELL DISTRIBUTION WIDTH 12.4 % (11.5-14.5); WHITE BLOOD COUNT 4.3 10^3/ul (4.5-11.0)
[2017-06-26] MEDS: Divalproex 500 mg ER (ONCE DAILY formulation) PO SCH (09:46)
[2017-06-26] MEDS: Potassium Chloride 10 mEq ER Tab PO SCH ×3 (09:46→17:17)
[2017-06-26] MEDS: Levothyroxine 125 MCG TAB PO SCH (09:46)
[2017-06-26 12:22] LABS: BLOOD UREA NITROGEN 9 mg/dL (7-21); CALCIUM 7.7 mg/dL (8.4-10.5); GFR AFRICAN-AMERICAN > 60; GFR NON-AFRICAN AMERICAN > 60
[2017-06-26 13:16] LABS: MAGNESIUM 1.9 mg/dL (1.7-2.2)
--- NOTE | 2017-06-26 14:27 | CP.PCM.DIS ---
Provider - Provider Date of Admission: 06/25/17 15:27 Attending physician: Dale Camacho MD Primary care physician: Patsy Noland DO Time Spent in preparation of Discharge (in minutes): 30 Hospital Course - Lab Results Lab Results: Most Recent Lab Values WBC 4.3 10^3/ul (4.5-11.0) L D 06/26/17 05:08 RBC 3.54 10^6/uL (3.5-6.1) 06/26/17 05:08 Hgb 11.6 gm/dL (12.0-16.0) L 06/26/17 05:08 Hct 33.5 % (36.0-48.0) L 06/26/17 05:08 MCV 94.6 fL (80.0-105.0) 06/26/17 05:08 MCH 32.8 pg (25.0-35.0) 06/26/17 05:08 MCHC 34.6 g/dl (31.0-37.0) 06/26/17 05:08 RDW 12.4 % (11.5-14.5) 06/26/17 05:08 Plt Count 233 10^3/uL (120.0-450.0) 06/26/17 05:08 MPV 9.6 fl (7.0-11.0) 06/26/17 05:08 Gran % 32.1 % (50.0-68.0) L 06/26/17 05:08 Lymph % (Auto) 57.9 % (22.0-35.0) H 06/26/17 05:08 [place] % (Auto) 6.5 % (1.0-6.0) H 06/26/17 05:08 Eos % (Auto) 3.0 % (1.5-5.0) 06/26/17 05:08 Baso % (Auto) 0.5 % (0.0-3.0) 06/26/17 05:08 Gran # 1.38 (1.4-6.5) L 06/26/17 05:08 Lymph # 2.5 (1.2-3.4) 06/26/17 05:08 [place] # 0.3 (0.1-0.6) 06/26/17 05:08 Eos # 0.1 (0.0-0.7) 06/26/17 05:08 Baso # 0.02 K/mm3 (0.0-2.0) 06/26/17 05:08 pCO2 27 mm/Hg (35-45) L 06/25/17 16:29 pO2 100.0 mm/Hg (80-100) 06/25/17 16:29 HCO3 13.3 mmol/L (21-28) L 06/25/17 16:29 ABG pH 7.30 (7.35-7.45) L 06/25/17 16:29 ABG Total CO2 14.1 mmol.L (22-28) L 06/25/17 16:29 ABG O2 Saturation 97.5 % (95-98) 06/25/17 16:29 ABG O2 Content 16.5 ML/dl (15-23) 06/25/17 16:29 ABG Base Excess -11.6 mmol/L (-2.0-3.0) L 06/25/17 16:29 ABG Hemoglobin 12.2 g/dL (11.7-17.4) 06/25/17 16:29 ABG Carboxyhemoglobin 1.6 % (0.5-1.5) H 06/25/17 16:29 POC ABG HHb (Measured) 2.4 % (0-5) 06/25/17 16:29 ABG Methemoglobin 0.8 % (0.0-3.0) 06/25/17 16:29 ABG O2 Capacity 16.9 mL/dl (16-24) 06/25/17 16:29 Hgb O2 Saturation 95.2 % (95.0-98.0) 06/25/17 16:29 FiO2 21.0 % 06/25/17 16:29 Sodium 136 mmol/L (132-148) 06/26/17 12:05 Potassium 3.2 mmol/L (3.6-5.0) L 06/26/17 12:05 Chloride 109 mmol/L (98-107) H 06/26/17 12:05 Carbon Dioxide 18 mmol/L (21-33) L 06/26/17 12:05 Anion Gap 12 (10-20) 06/26/17 12:05 BUN 9 mg/dL (7-21) 06/26/17 12:05 Creatinine 0.5 mg/dL (0.5-1.4) 06/26/17 12:05 Est GFR ( Amer) > 60 06/26/17 12:05 Est GFR (Non-Af Amer) > 60 06/26/17 12:05 POC Glucose (mg/dL) 191 mg/dL (65-110) H 06/26/17 10:10 Random Glucose 128 mg/dL (70-110) H 06/26/17 12:05 Calcium 7.7 mg/dL (8.4-10.5) L 06/26/17 12:05 Phosphorus 2.6 mg/dL (2.5-4.5) 06/26/17 12:54 Magnesium 1.9 mg/dL (1.7-2.2) 06/26/17 12:54 Total Bilirubin 0.6 mg/dL (0.2-1.3) 06/25/17 13:30 AST 13 U/L (15-39) L 06/25/17 13:30 ALT 18 U/L (7-56) 06/25/17 13:30 Alkaline Phosphatase 62 U/L (38-133) 06/25/17 13:30 Lactate Dehydrogenase 312 U/L (333-699) L 06/25/17 13:30 Total Creatine Kinase 20 U/L (35-230) L 06/25/17 13:30 Troponin I < 0.01 ng/mL 06/25/17 13:30 NT-Pro-B Natriuret Pep 36.4 pg/mL (0-450) 06/25/17 13:30 Total Protein 7.5 g/dL (5.8-8.3) 06/25/17 13:30 Albumin 4.5 g/dL (3.0-4.8) 06/25/17 13:30 Globulin 3.0 gm/dL 06/25/17 13:30 Albumin/Globulin Ratio 1.5 (1.1-1.8) 06/25/17 13:30 Triglycerides 273 mg/dL (35-160) H 06/26/17 05:35 Cholesterol 189 mg/dL (130-200) 06/26/17 05:35 LDL Cholesterol Direct 104 mg/dL (0-129) 06/26/17 05:35 HDL Cholesterol 34 mg/dL (29-60) 06/26/17 05:35 Amylase 59 U/L (35-125) 06/25/17 14:32 Lipase 106 U/L (23-300) 06/25/17 14:32 Thyroxine (T4) 4.0 ug/dL (5.5-11.0) L 06/26/17 05:35 TSH 3rd Generation 32.40 mIU/mL (0.46-4.68) H 06/26/17 05:35 Urine Color Straw (YELLOW) 06/25/17 13:30 Urine Appearance Clear (CLEAR) 06/25/17 13:30 Urine pH 6.0 (4.7-8.0) 06/25/17 13:30 Ur Specific [place] 1.025 (1.005-1.035) 06/25/17 13:30 Urine Protein Negative mg/dL (<30 mg/dL) 06/25/17 13:30 Urine Glucose (UA) >=1000 mg/dL (NEGATIVE) 06/25/17 13:30 Urine Ketones >=80 mg/dL (NEGATIVE) 06/25/17 13:30 Urine Blood Negative (NEGATIVE) 06/25/17 13:30 Urine Nitrate Negative (NEGATIVE) 06/25/17 13:30 Urine Bilirubin Negative (NEGATIVE) 06/25/17 13:30 Urine Urobilinogen 0.2 E.U./dL (<1 E.U./dL) 06/25/17 13:30 Ur Leukocyte Esterase Negative Helene/uL (NEGATIVE) 06/25/17 13:30 Urine Opiates Screen Negative (NEGATIVE) 06/25/17 16:00 Urine Methadone Screen Negative (NEGATIVE) 06/25/17 16:00 Ur Barbiturates Screen Negative (NEGATIVE) 06/25/17 16:00 Ur Phencyclidine Scrn Negative (NEGATIVE) 06/25/17 16:00 Ur Amphetamines Screen Negative (NEGATIVE) 06/25/17 16:00 U Benzodiazepines Scrn Negative (NEGATIVE) 06/25/17 16:00 U Oth Cocaine Metabols Negative (NEGATIVE) 06/25/17 16:00 U Cannabinoids Screen Negative (NEGATIVE) 06/25/17 16:00 Alcohol, Quantitative < 10 mg/dL (0-10) 06/25/17 14:50 - Hospital Course Hospital Course: 36 year old woman admitted for DKA with a PMH of IDDM, hypothyroidism, HTN, bipolar disorder, alcohol abuse, and brain tumor s/p resection. PT presents with nausea, vomiting, and diarrhea - Date & Time of H&P Date of H&P: 06/26/17 Time of H&P: 14:25 Discharge Exam - Head Exam Head Exam: ATRAUMATIC, NORMOCEPHALIC - Eye Exam Eye Exam: EOMI, Normal appearance - ENT Exam ENT Exam: Mucous Membranes Moist - Neck Exam Neck exam: Full Rom - Respiratory Exam Respiratory Exam: NORMAL BREATHING PATTERN. absent: Accessory Muscle Use, Wheezes, Respiratory Distress, Stridor - Cardiovascular Exam Cardiovascular Exam: REGULAR RHYTHM. absent: Bradycardia, Tachycardia - GI/Abdominal Exam GI & Abdominal Exam: Normal Bowel Sounds, Soft, Tenderness. absent: Distended, Firm, Guarding - Extremities Exam Extremities exam: full ROM - Neurological Exam Neurological exam: Alert, Oriented x3 - Psychiatric Exam Psychiatric exam: Flat Affect - Skin Skin Exam: Dry, Intact, Normal Color, Warm Discharge Plan - Follow Up Plan Condition: IMPROVED Disposition: HOME/ ROUTINE Instructions: Diabetic Ketoacidosis (DC), Diabetic Ketoacidosis (GEN) Additional Instructions: Discharge Plan for patient F/u TSH level in 4 weeks. f/u with PMD, in one week f/u with marketing services manager in one week continue current dose of synthroid 125 mcgs POQD Diabetic Ketoacidosis, resolved Hypertension: Continue lisinopril 5 mg POQD, atenolol 12.5mg POQD Hyperthyroidism: Continue synthroid 125 mcg POQD, monitor TSH, Thyroid levels Bipolar disorder: Continue depakote 500mg POQD Referrals: Patsy Noland DO [Primary Care Provider] -
--- NOTE | 2017-06-26 15:39 | CP.CCUPN ---
CCU Subjective - Physician Review Events Since Last Encounter (Free Text): 06/26/17 15:37 No acute events overnight AG closed overnight and Insulin was transitioned Currently tolerating diet and BS managed. CCU Objective - Vital Signs / Intake & Output Vital Signs (Last 4 hours): Vital Signs Temp Pulse Resp Pulse Ox 06/26/17 13:30 91 H 20 93 L 06/26/17 13:20 92 H 19 96 06/26/17 13:10 97 H 16 97 06/26/17 13:00 92 H 17 95 06/26/17 12:50 91 H 16 94 L 06/26/17 12:40 91 H 19 99 06/26/17 12:30 92 H 22 100 06/26/17 12:20 100 H 18 98 06/26/17 12:10 105 H 98 06/26/17 12:00 98.2 F 88 18 96 06/26/17 11:50 96 H 27 H 95 06/26/17 11:40 97 H 17 95 Intake and Output (Last 8hrs): Intake & Output 06/26/17 06/26/17 06/26/17 06:59 14:59 22:59 Intake Total 1800 Output Total 700 Balance 1100 Weight 143 lb Intake: IV 1800 Left Antecubital 1800 Oral 0 Output: Urine 700 Urine, Voided 700 Other: Voiding Method Bedside Commode # Voids Urine, Voided 2 # Bowel Movements 1 - Physical Exam Head: Positive for: Atraumatic, Normocephalic Pupils: Positive for: PERRL Extroacular Muscles: Positive for: EOMI Conjunctiva: Positive for: Normal Ears: Positive for: NORMAL TM, Normal Canal. Negative for: Erythema Mouth: Positive for: Dry Pharnyx: Negative for: ERYTHEMA, EXUDATE, TONSILS ENLARGED Neck: Positive for: Normal Range of Motion Respiratory/Chest: Positive for: Clear to Auscultation, Good Air Exchange, Decreased Breath Sounds. Negative for: Respiratory Distress, Accessory Muscle Use Cardiovascular: Positive for: Regular Rate and Rhythm, Normal S1, S2, Tachycardic. Negative for: Murmurs Abdomen: Positive for: Normal Bowel Sounds. Negative for: Tenderness, Distention, Peritoneal Signs, Rebound, Guarding Upper Extremity: Positive for: Normal Inspection. Negative for: Cyanosis, Edema Lower Extremity: Positive for: Normal Inspection. Negative for: Edema Neurological: Positive for: GCS=15, CN II-XII Intact, Speech Normal, Motor Func Grossly Intact Skin: Positive for: Warm, Dry, Normal Color. Negative for: Rashes Psychiatric: Positive for: Alert, Oriented x 3, Normal Insight, Normal Concentration - Medications Active Medications: Active Medications Generic Name Dose Route Start Last Admin Trade Name Freq PRN Reason Stop Dose Admin Acetaminophen 650 mg 06/26/17 09:54 06/26/17 10:56 Tylenol 325mg Tab PO 650 mg Q6H PRN Administration Headache Atenolol 12.5 mg 06/25/17 16:00 06/26/17 09:46 Tenormin PO Not Given DAILY SHIREEN Divalproex Sodium 500 mg 06/25/17 16:00 06/26/17 09:46 Depakote Er(Once Daily) PO 500 mg DAILY SHIREEN Administration Protocol Gabapentin 300 mg 06/25/17 18:00 06/26/17 14:15 Neurontin PO 300 mg TID SHIREEN Administration Protocol Insulin Human Regular 100 100 mls @ 5 mls/hr 06/25/17 15:44 06/25/17 20:40 units/ Sodium Chloride IV 1.5 units/hr .Q20H PRN 1.5 mls/hr TITRATE PER MD ORDER Titration Protocol 5 UNITS/HR Dextrose/Sodium Chloride 1,000 mls @ 150 mls/hr 06/25/17 17:45 06/26/17 01:00 Dextrose 5%/0.9% Ns 1000 Ml IV 150 mls/hr .Q6H40M SHIREEN Administration Insulin Detemir 30 unit 06/25/17 22:15 06/25/17 22:59 Levemir SC 30 unit HS SHIREEN Administration Insulin Human Regular 0 units 06/25/17 22:15 06/26/17 12:25 Humulin R Low SC Not Given Q2H [facility] Protocol Levothyroxine Sodium 125 mcg 06/25/17 16:00 06/26/17 09:46 Synthroid PO 125 mcg DAILY SHIREEN Administration Lisinopril 5 mg 06/26/17 10:00 06/26/17 09:47 Zestril PO Not Given DAILY SHIREEN Ondansetron HCl 4 mg 06/25/17 15:43 06/26/17 08:37 Zofran Inj IVP 4 mg Q4H PRN Administration Nausea/Vomiting Pantoprazole Sodium 40 mg 06/26/17 10:00 06/26/17 09:44 Protonix Inj IVP 40 mg DAILY SHIREEN Administration Potassium Chloride 40 meq 06/25/17 18:00 06/26/17 14:15 Klor-Con 10 PO 40 meq TID SHIREEN Administration Zolpidem Tartrate 5 mg 06/25/17 22:46 06/25/17 22:59 Ambien PO 5 mg HS PRN Administration Insomnia Protocol - Patient Studies Lab Studies: Lab Studies 06/26/17 06/26/17 06/26/17 Range/Units 12:54 12:17 12:05 WBC (4.5-11.0) 10^3/ul RBC (3.5-6.1) 10^6/uL Hgb (12.0-16.0) gm/dL Hct (36.0-48.0) % MCV (80.0-105.0) fL MCH (25.0-35.0) pg MCHC (31.0-37.0) g/dl RDW (11.5-14.5) % Plt Count (120.0-450.0) 10^3/uL MPV (7.0-11.0) fl Gran % (50.0-68.0) % Lymph % (Auto) (22.0-35.0) % [place] % (Auto) (1.0-6.0) % Eos % (Auto) (1.5-5.0) % Baso % (Auto) (0.0-3.0) % Gran # (1.4-6.5) Lymph # (1.2-3.4) [place] # (0.1-0.6) Eos # (0.0-0.7) Baso # (0.0-2.0) K/mm3 pCO2 (35-45) mm/Hg pO2 (80-100) mm/Hg HCO3 (21-28) mmol/L ABG pH (7.35-7.45) ABG Total CO2 (22-28) mmol.L ABG O2 Saturation (95-98) % ABG O2 Content (15-23) ML/dl ABG Base Excess (-2.0-3.0) mmol/L ABG Hemoglobin (11.7-17.4) g/dL ABG Carboxyhemoglobin (0.5-1.5) % POC ABG HHb (Measured) (0-5) % ABG Methemoglobin (0.0-3.0) % ABG O2 Capacity (16-24) mL/dl Hgb O2 Saturation (95.0-98.0) % FiO2 % Sodium 136 (132-148) mmol/L Potassium 3.2 L (3.6-5.0) mmol/L Chloride 109 H (98-107) mmol/L Carbon Dioxide 18 L (21-33) mmol/L Anion Gap 12 (10-20) BUN 9 (7-21) mg/dL Creatinine 0.5 (0.5-1.4) mg/dL Est GFR ( Amer) > 60 Est GFR (Non-Af Amer) > 60 POC Glucose (mg/dL) 148 H (65-110) mg/dL Random Glucose 128 H (70-110) mg/dL Calcium 7.7 L (8.4-10.5) mg/dL Phosphorus 2.6 (2.5-4.5) mg/dL Magnesium 1.9 (1.7-2.2) mg/dL Triglycerides (35-160) mg/dL Cholesterol (130-200) mg/dL LDL Cholesterol Direct (0-129) mg/dL HDL Cholesterol (29-60) mg/dL Thyroxine (T4) (5.5-11.0) ug/dL TSH 3rd Generation (0.46-4.68) mIU/mL Urine Opiates Screen (NEGATIVE) Urine Methadone Screen (NEGATIVE) Ur Barbiturates Screen (NEGATIVE) Ur Phencyclidine Scrn (NEGATIVE) Ur Amphetamines Screen (NEGATIVE) U Benzodiazepines Scrn (NEGATIVE) U Oth Cocaine Metabols (NEGATIVE) U Cannabinoids Screen (NEGATIVE) 06/26/17 06/26/17 06/26/17 Range/Units 10:10 07:50 06:27 WBC (4.5-11.0) 10^3/ul RBC (3.5-6.1) 10^6/uL Hgb (12.0-16.0) gm/dL Hct (36.0-48.0) % MCV (80.0-105.0) fL MCH (25.0-35.0) pg MCHC (31.0-37.0) g/dl RDW (11.5-14.5) % Plt Count (120.0-450.0) 10^3/uL MPV (7.0-11.0) fl Gran % (50.0-68.0) % Lymph % (Auto) (22.0-35.0) % [place] % (Auto) (1.0-6.0) % Eos % (Auto) (1.5-5.0) % Baso % (Auto) (0.0-3.0) % Gran # (1.4-6.5) Lymph # (1.2-3.4) [place] # (0.1-0.6) Eos # (0.0-0.7) Baso # (0.0-2.0) K/mm3 pCO2 (35-45) mm/Hg pO2 (80-100) mm/Hg HCO3 (21-28) mmol/L ABG pH (7.35-7.45) ABG Total CO2 (22-28) mmol.L ABG O2 Saturation (95-98) % ABG O2 Content (15-23) ML/dl ABG Base Excess (-2.0-3.0) mmol/L ABG Hemoglobin (11.7-17.4) g/dL ABG Carboxyhemoglobin (0.5-1.5) % POC ABG HHb (Measured) (0-5) % ABG Methemoglobin (0.0-3.0) % ABG O2 Capacity (16-24) mL/dl Hgb O2 Saturation (95.0-98.0) % FiO2 % Sodium (132-148) mmol/L Potassium (3.6-5.0) mmol/L Chloride (98-107) mmol/L Carbon Dioxide (21-33) mmol/L Anion Gap (10-20) BUN (7-21) mg/dL Creatinine (0.5-1.4) mg/dL Est GFR ( Amer) Est GFR (Non-Af Amer) POC Glucose (mg/dL) 191 H 130 H 186 H (65-110) mg/dL Random Glucose (70-110) mg/dL Calcium (8.4-10.5) mg/dL Phosphorus (2.5-4.5) mg/dL Magnesium (1.7-2.2) mg/dL Triglycerides (35-160) mg/dL Cholesterol (130-200) mg/dL LDL Cholesterol Direct (0-129) mg/dL HDL Cholesterol (29-60) mg/dL Thyroxine (T4) (5.5-11.0) ug/dL TSH 3rd Generation (0.46-4.68) mIU/mL Urine Opiates Screen (NEGATIVE) Urine Methadone Screen (NEGATIVE) Ur Barbiturates Screen (NEGATIVE) Ur Phencyclidine Scrn (NEGATIVE) Ur Amphetamines Screen (NEGATIVE) U Benzodiazepines Scrn (NEGATIVE) U Oth Cocaine Metabols (NEGATIVE) U Cannabinoids Screen (NEGATIVE) 06/26/17 06/26/17 06/26/17 Range/Units 05:35 05:35 05:35 WBC (4.5-11.0) 10^3/ul RBC (3.5-6.1) 10^6/uL Hgb (12.0-16.0) gm/dL Hct (36.0-48.0) % MCV (80.0-105.0) fL MCH (25.0-35.0) pg MCHC (31.0-37.0) g/dl RDW (11.5-14.5) % Plt Count (120.0-450.0) 10^3/uL MPV (7.0-11.0) fl Gran % (50.0-68.0) % Lymph % (Auto) (22.0-35.0) % [place] % (Auto) (1.0-6.0) % Eos % (Auto) (1.5-5.0) % Baso % (Auto) (0.0-3.0) % Gran # (1.4-6.5) Lymph # (1.2-3.4) [place] # (0.1-0.6) Eos # (0.0-0.7) Baso # (0.0-2.0) K/mm3 pCO2 (35-45) mm/Hg pO2 (80-100) mm/Hg HCO3 (21-28) mmol/L ABG pH (7.35-7.45) ABG Total CO2 (22-28) mmol.L ABG O2 Saturation (95-98) % ABG O2 Content (15-23) ML/dl ABG Base Excess (-2.0-3.0) mmol/L ABG Hemoglobin (11.7-17.4) g/dL ABG Carboxyhemoglobin (0.5-1.5) % POC ABG HHb (Measured) (0-5) % ABG Methemoglobin (0.0-3.0) % ABG O2 Capacity (16-24) mL/dl Hgb O2 Saturation (95.0-98.0) % FiO2 % Sodium 137 (132-148) mmol/L Potassium 3.1 L (3.6-5.0) mmol/L Chloride 111 H (98-107) mmol/L Carbon Dioxide 19 L (21-33) mmol/L Anion Gap 10 (10-20) BUN 9 (7-21) mg/dL Creatinine 0.6 (0.5-1.4) mg/dL Est GFR ( Amer) > 60 Est GFR (Non-Af Amer) > 60 POC Glucose (mg/dL) (65-110) mg/dL Random Glucose 144 H (70-110) mg/dL Calcium 7.3 L (8.4-10.5) mg/dL Phosphorus (2.5-4.5) mg/dL Magnesium 1.4 L (1.7-2.2) mg/dL Triglycerides 273 H (35-160) mg/dL Cholesterol 189 (130-200) mg/dL LDL Cholesterol Direct 104 (0-129) mg/dL HDL Cholesterol 34 (29-60) mg/dL Thyroxine (T4) 4.0 L (5.5-11.0) ug/dL TSH 3rd Generation 32.40 H (0.46-4.68) mIU/mL Urine Opiates Screen (NEGATIVE) Urine Methadone Screen (NEGATIVE) Ur Barbiturates Screen (NEGATIVE) Ur Phencyclidine Scrn (NEGATIVE) Ur Amphetamines Screen (NEGATIVE) U Benzodiazepines Scrn (NEGATIVE) U Oth Cocaine Metabols (NEGATIVE) U Cannabinoids Screen (NEGATIVE) 06/26/17 06/26/17 06/26/17 Range/Units 05:08 04:34 02:34 WBC 4.3 L D (4.5-11.0) 10^3/ul RBC 3.54 (3.5-6.1) 10^6/uL Hgb 11.6 L (12.0-16.0) gm/dL Hct 33.5 L (36.0-48.0) % MCV 94.6 (80.0-105.0) fL MCH 32.8 (25.0-35.0) pg MCHC 34.6 (31.0-37.0) g/dl RDW 12.4 (11.5-14.5) % Plt Count 233 (120.0-450.0) 10^3/uL MPV 9.6 (7.0-11.0) fl Gran % 32.1 L (50.0-68.0) % Lymph % (Auto) 57.9 H (22.0-35.0) % [place] % (Auto) 6.5 H (1.0-6.0) % Eos % (Auto) 3.0 (1.5-5.0) % Baso % (Auto) 0.5 (0.0-3.0) % Gran # 1.38 L (1.4-6.5) Lymph # 2.5 (1.2-3.4) [place] # 0.3 (0.1-0.6) Eos # 0.1 (0.0-0.7) Baso # 0.02 (0.0-2.0) K/mm3 pCO2 (35-45) mm/Hg pO2 (80-100) mm/Hg HCO3 (21-28) mmol/L ABG pH (7.35-7.45) ABG Total CO2 (22-28) mmol.L ABG O2 Saturation (95-98) % ABG O2 Content (15-23) ML/dl ABG Base Excess (-2.0-3.0) mmol/L ABG Hemoglobin (11.7-17.4) g/dL ABG Carboxyhemoglobin (0.5-1.5) % POC ABG HHb (Measured) (0-5) % ABG Methemoglobin (0.0-3.0) % ABG O2 Capacity (16-24) mL/dl Hgb O2 Saturation (95.0-98.0) % FiO2 % Sodium (132-148) mmol/L Potassium (3.6-5.0) mmol/L Chloride (98-107) mmol/L Carbon Dioxide (21-33) mmol/L Anion Gap (10-20) BUN (7-21) mg/dL Creatinine (0.5-1.4) mg/dL Est GFR ( Amer) Est GFR (Non-Af Amer) POC Glucose (mg/dL) 165 H 173 H (65-110) mg/dL Random Glucose (70-110) mg/dL Calcium (8.4-10.5) mg/dL Phosphorus (2.5-4.5) mg/dL Magnesium (1.7-2.2) mg/dL Triglycerides (35-160) mg/dL Cholesterol (130-200) mg/dL LDL Cholesterol Direct (0-129) mg/dL HDL Cholesterol (29-60) mg/dL Thyroxine (T4) (5.5-11.0) ug/dL TSH 3rd Generation (0.46-4.68) mIU/mL Urine Opiates Screen (NEGATIVE) Urine Methadone Screen (NEGATIVE) Ur Barbiturates Screen (NEGATIVE) Ur Phencyclidine Scrn (NEGATIVE) Ur Amphetamines Screen (NEGATIVE) U Benzodiazepines Scrn (NEGATIVE) U Oth Cocaine Metabols (NEGATIVE) U Cannabinoids Screen (NEGATIVE) 06/26/17 06/25/17 06/25/17 Range/Units 00:38 23:32 22:43 WBC (4.5-11.0) 10^3/ul RBC (3.5-6.1) 10^6/uL Hgb (12.0-16.0) gm/dL Hct (36.0-48.0) % MCV (80.0-105.0) fL MCH (25.0-35.0) pg MCHC (31.0-37.0) g/dl RDW (11.5-14.5) % Plt Count (120.0-450.0) 10^3/uL MPV (7.0-11.0) fl Gran % (50.0-68.0) % Lymph % (Auto) (22.0-35.0) % [place] % (Auto) (1.0-6.0) % Eos % (Auto) (1.5-5.0) % Baso % (Auto) (0.0-3.0) % Gran # (1.4-6.5) Lymph # (1.2-3.4) [place] # (0.1-0.6) Eos # (0.0-0.7) Baso # (0.0-2.0) K/mm3 pCO2 (35-45) mm/Hg pO2 (80-100) mm/Hg HCO3 (21-28) mmol/L ABG pH (7.35-7.45) ABG Total CO2 (22-28) mmol.L ABG O2 Saturation (95-98) % ABG O2 Content (15-23) ML/dl ABG Base Excess (-2.0-3.0) mmol/L ABG Hemoglobin (11.7-17.4) g/dL ABG Carboxyhemoglobin (0.5-1.5) % POC ABG HHb (Measured) (0-5) % ABG Methemoglobin (0.0-3.0) % ABG O2 Capacity (16-24) mL/dl Hgb O2 Saturation (95.0-98.0) % FiO2 % Sodium (132-148) mmol/L Potassium (3.6-5.0) mmol/L Chloride (98-107) mmol/L Carbon Dioxide (21-33) mmol/L Anion Gap (10-20) BUN (7-21) mg/dL Creatinine (0.5-1.4) mg/dL Est GFR ( Amer) Est GFR (Non-Af Amer) POC Glucose (mg/dL) 145 H 128 H 125 H (65-110) mg/dL Random Glucose (70-110) mg/dL Calcium (8.4-10.5) mg/dL Phosphorus (2.5-4.5) mg/dL Magnesium (1.7-2.2) mg/dL Triglycerides (35-160) mg/dL Cholesterol (130-200) mg/dL LDL Cholesterol Direct (0-129) mg/dL HDL Cholesterol (29-60) mg/dL Thyroxine (T4) (5.5-11.0) ug/dL TSH 3rd Generation (0.46-4.68) mIU/mL Urine Opiates Screen (NEGATIVE) Urine Methadone Screen (NEGATIVE) Ur Barbiturates Screen (NEGATIVE) Ur Phencyclidine Scrn (NEGATIVE) Ur Amphetamines Screen (NEGATIVE) U Benzodiazepines Scrn (NEGATIVE) U Oth Cocaine Metabols (NEGATIVE) U Cannabinoids Screen (NEGATIVE) 06/25/17 06/25/17 06/25/17 Range/Units 21:44 20:38 20:27 WBC (4.5-11.0) 10^3/ul RBC (3.5-6.1) 10^6/uL Hgb (12.0-16.0) gm/dL Hct (36.0-48.0) % MCV (80.0-105.0) fL MCH (25.0-35.0) pg MCHC (31.0-37.0) g/dl RDW (11.5-14.5) % Plt Count (120.0-450.0) 10^3/uL MPV (7.0-11.0) fl Gran % (50.0-68.0) % Lymph % (Auto) (22.0-35.0) % [place] % (Auto) (1.0-6.0) % Eos % (Auto) (1.5-5.0) % Baso % (Auto) (0.0-3.0) % Gran # (1.4-6.5) Lymph # (1.2-3.4) [place] # (0.1-0.6) Eos # (0.0-0.7) Baso # (0.0-2.0) K/mm3 pCO2 (35-45) mm/Hg pO2 (80-100) mm/Hg HCO3 (21-28) mmol/L ABG pH (7.35-7.45) ABG Total CO2 (22-28) mmol.L ABG O2 Saturation (95-98) % ABG O2 Content (15-23) ML/dl ABG Base Excess (-2.0-3.0) mmol/L ABG Hemoglobin (11.7-17.4) g/dL ABG Carboxyhemoglobin (0.5-1.5) % POC ABG HHb (Measured) (0-5) % ABG Methemoglobin (0.0-3.0) % ABG O2 Capacity (16-24) mL/dl Hgb O2 Saturation (95.0-98.0) % FiO2 % Sodium 134 (132-148) mmol/L Potassium 3.3 L (3.6-5.0) mmol/L Chloride 107 (98-107) mmol/L Carbon Dioxide 19 L (21-33) mmol/L Anion Gap 11 (10-20) BUN 10 (7-21) mg/dL Creatinine 0.5 (0.5-1.4) mg/dL Est GFR ( Amer) > 60 Est GFR (Non-Af Amer) > 60 POC Glucose (mg/dL) 117 H 133 H (65-110) mg/dL Random Glucose 111 H (70-110) mg/dL Calcium 7.5 L (8.4-10.5) mg/dL Phosphorus (2.5-4.5) mg/dL Magnesium (1.7-2.2) mg/dL Triglycerides (35-160) mg/dL Cholesterol (130-200) mg/dL LDL Cholesterol Direct (0-129) mg/dL HDL Cholesterol (29-60) mg/dL Thyroxine (T4) (5.5-11.0) ug/dL TSH 3rd Generation (0.46-4.68) mIU/mL Urine Opiates Screen (NEGATIVE) Urine Methadone Screen (NEGATIVE) Ur Barbiturates Screen (NEGATIVE) Ur Phencyclidine Scrn (NEGATIVE) Ur Amphetamines Screen (NEGATIVE) U Benzodiazepines Scrn (NEGATIVE) U Oth Cocaine Metabols (NEGATIVE) U Cannabinoids Screen (NEGATIVE) 06/25/17 06/25/17 06/25/17 Range/Units 19:31 18:47 17:49 WBC (4.5-11.0) 10^3/ul RBC (3.5-6.1) 10^6/uL Hgb (12.0-16.0) gm/dL Hct (36.0-48.0) % MCV (80.0-105.0) fL MCH (25.0-35.0) pg MCHC (31.0-37.0) g/dl RDW (11.5-14.5) % Plt Count (120.0-450.0) 10^3/uL MPV (7.0-11.0) fl Gran % (50.0-68.0) % Lymph % (Auto) (22.0-35.0) % [place] % (Auto) (1.0-6.0) % Eos % (Auto) (1.5-5.0) % Baso % (Auto) (0.0-3.0) % Gran # (1.4-6.5) Lymph # (1.2-3.4) [place] # (0.1-0.6) Eos # (0.0-0.7) Baso # (0.0-2.0) K/mm3 pCO2 (35-45) mm/Hg pO2 (80-100) mm/Hg HCO3 (21-28) mmol/L ABG pH (7.35-7.45) ABG Total CO2 (22-28) mmol.L ABG O2 Saturation (95-98) % ABG O2 Content (15-23) ML/dl ABG Base Excess (-2.0-3.0) mmol/L ABG Hemoglobin (11.7-17.4) g/dL ABG Carboxyhemoglobin (0.5-1.5) % POC ABG HHb (Measured) (0-5) % ABG Methemoglobin (0.0-3.0) % ABG O2 Capacity (16-24) mL/dl Hgb O2 Saturation (95.0-98.0) % FiO2 % Sodium (132-148) mmol/L Potassium (3.6-5.0) mmol/L Chloride (98-107) mmol/L Carbon Dioxide (21-33) mmol/L Anion Gap (10-20) BUN (7-21) mg/dL Creatinine (0.5-1.4) mg/dL Est GFR ( Amer) Est GFR (Non-Af Amer) POC Glucose (mg/dL) 130 H 161 H 194 H (65-110) mg/dL Random Glucose (70-110) mg/dL Calcium (8.4-10.5) mg/dL Phosphorus (2.5-4.5) mg/dL Magnesium (1.7-2.2) mg/dL Triglycerides (35-160) mg/dL Cholesterol (130-200) mg/dL LDL Cholesterol Direct (0-129) mg/dL HDL Cholesterol (29-60) mg/dL Thyroxine (T4) (5.5-11.0) ug/dL TSH 3rd Generation (0.46-4.68) mIU/mL Urine Opiates Screen (NEGATIVE) Urine Methadone Screen (NEGATIVE) Ur Barbiturates Screen (NEGATIVE) Ur Phencyclidine Scrn (NEGATIVE) Ur Amphetamines Screen (NEGATIVE) U Benzodiazepines Scrn (NEGATIVE) U Oth Cocaine Metabols (NEGATIVE) U Cannabinoids Screen (NEGATIVE) 06/25/17 06/25/17 06/25/17 Range/Units 16:46 16:29 16:00 WBC (4.5-11.0) 10^3/ul RBC (3.5-6.1) 10^6/uL Hgb (12.0-16.0) gm/dL Hct (36.0-48.0) % MCV (80.0-105.0) fL MCH (25.0-35.0) pg MCHC (31.0-37.0) g/dl RDW (11.5-14.5) % Plt Count (120.0-450.0) 10^3/uL MPV (7.0-11.0) fl Gran % (50.0-68.0) % Lymph % (Auto) (22.0-35.0) % [place] % (Auto) (1.0-6.0) % Eos % (Auto) (1.5-5.0) % Baso % (Auto) (0.0-3.0) % Gran # (1.4-6.5) Lymph # (1.2-3.4) [place] # (0.1-0.6) Eos # (0.0-0.7) Baso # (0.0-2.0) K/mm3 pCO2 27 L (35-45) mm/Hg pO2 100.0 (80-100) mm/Hg HCO3 13.3 L (21-28) mmol/L ABG pH 7.30 L (7.35-7.45) ABG Total CO2 14.1 L (22-28) mmol.L ABG O2 Saturation 97.5 (95-98) % ABG O2 Content 16.5 (15-23) ML/dl ABG Base Excess -11.6 L (-2.0-3.0) mmol/L ABG Hemoglobin 12.2 (11.7-17.4) g/dL ABG Carboxyhemoglobin 1.6 H (0.5-1.5) % POC ABG HHb (Measured) 2.4 (0-5) % ABG Methemoglobin 0.8 (0.0-3.0) % ABG O2 Capacity 16.9 (16-24) mL/dl Hgb O2 Saturation 95.2 (95.0-98.0) % FiO2 21.0 % Sodium 131 L (132-148) mmol/L Potassium 3.5 L (3.6-5.0) mmol/L Chloride 100 (98-107) mmol/L Carbon Dioxide 14 L (21-33) mmol/L Anion Gap 21 H (10-20) BUN 13 (7-21) mg/dL Creatinine 0.6 (0.5-1.4) mg/dL Est GFR ( Amer) > 60 Est GFR (Non-Af Amer) > 60 POC Glucose (mg/dL) (65-110) mg/dL Random Glucose 238 H (70-110) mg/dL Calcium 8.4 (8.4-10.5) mg/dL Phosphorus 2.7 (2.5-4.5) mg/dL Magnesium 1.2 L (1.7-2.2) mg/dL Triglycerides (35-160) mg/dL Cholesterol (130-200) mg/dL LDL Cholesterol Direct (0-129) mg/dL HDL Cholesterol (29-60) mg/dL Thyroxine (T4) (5.5-11.0) ug/dL TSH 3rd Generation (0.46-4.68) mIU/mL Urine Opiates Screen Negative (NEGATIVE) Urine Methadone Screen Negative (NEGATIVE) Ur Barbiturates Screen Negative (NEGATIVE) Ur Phencyclidine Scrn Negative (NEGATIVE) Ur Amphetamines Screen Negative (NEGATIVE) U Benzodiazepines Scrn Negative (NEGATIVE) U Oth Cocaine Metabols Negative (NEGATIVE) U Cannabinoids Screen Negative (NEGATIVE) Laboratory Results - last 24 hr 06/25/17 06/25/17 06/25/17 16:00 16:29 16:46 WBC RBC Hgb Hct MCV MCH MCHC RDW Plt Count MPV Gran % Lymph % (Auto) [place] % (Auto) Eos % (Auto) Baso % (Auto) Gran # Lymph # [place] # Eos # Baso # pCO2 27 L pO2 100.0 HCO3 13.3 L ABG pH 7.30 L ABG Total CO2 14.1 L ABG O2 Saturation 97.5 ABG O2 Content 16.5 ABG Base Excess -11.6 L ABG Hemoglobin 12.2 ABG Carboxyhemoglobin 1.6 H POC ABG HHb (Measured) 2.4 ABG Methemoglobin 0.8 ABG O2 Capacity 16.9 Hgb O2 Saturation 95.2 FiO2 21.0 Sodium 131 L Potassium 3.5 L Chloride 100 Carbon Dioxide 14 L Anion Gap 21 H BUN 13 Creatinine 0.6 Est GFR ( Amer) > 60 Est GFR (Non-Af Amer) > 60 POC Glucose (mg/dL) Random Glucose 238 H Calcium 8.4 Phosphorus 2.7 Magnesium 1.2 L Triglycerides Cholesterol LDL Cholesterol Direct HDL Cholesterol Thyroxine (T4) TSH 3rd Generation Urine Opiates Screen Negative Urine Methadone Screen Negative Ur Barbiturates Screen Negative Ur Phencyclidine Scrn Negative Ur Amphetamines Screen Negative U Benzodiazepines Scrn Negative U Oth Cocaine Metabols Negative U Cannabinoids Screen Negative 06/25/17 06/25/17 06/25/17 17:49 18:47 19:31 WBC RBC Hgb Hct MCV MCH MCHC RDW Plt Count MPV Gran % Lymph % (Auto) [place] % (Auto) Eos % (Auto) Baso % (Auto) Gran # Lymph # [place] # Eos # Baso # pCO2 pO2 HCO3 ABG pH ABG Total CO2 ABG O2 Saturation ABG O2 Content ABG Base Excess ABG Hemoglobin ABG Carboxyhemoglobin POC ABG HHb (Measured) ABG Methemoglobin ABG O2 Capacity Hgb O2 Saturation FiO2 Sodium Potassium Chloride Carbon Dioxide Anion Gap BUN Creatinine Est GFR ( Amer) Est GFR (Non-Af Amer) POC Glucose (mg/dL) 194 H 161 H 130 H Random Glucose Calcium Phosphorus Magnesium Triglycerides Cholesterol LDL Cholesterol Direct HDL Cholesterol Thyroxine (T4) TSH 3rd Generation Urine Opiates Screen Urine Methadone Screen Ur Barbiturates Screen Ur Phencyclidine Scrn Ur Amphetamines Screen U Benzodiazepines Scrn U Oth Cocaine Metabols U Cannabinoids Screen 06/25/17 06/25/17 06/25/17 20:27 20:38 21:44 WBC RBC Hgb Hct MCV MCH MCHC RDW Plt Count MPV Gran % Lymph % (Auto) [place] % (Auto) Eos % (Auto) Baso % (Auto) Gran # Lymph # [place] # Eos # Baso # pCO2 pO2 HCO3 ABG pH ABG Total CO2 ABG O2 Saturation ABG O2 Content ABG Base Excess ABG Hemoglobin ABG Carboxyhemoglobin POC ABG HHb (Measured) ABG Methemoglobin ABG O2 Capacity Hgb O2 Saturation FiO2 Sodium 134 Potassium 3.3 L Chloride 107 Carbon Dioxide 19 L Anion Gap 11 BUN 10 Creatinine 0.5 Est GFR ( Amer) > 60 Est GFR (Non-Af Amer) > 60 POC Glucose (mg/dL) 133 H 117 H Random Glucose 111 H Calcium 7.5 L Phosphorus Magnesium Triglycerides Cholesterol LDL Cholesterol Direct HDL Cholesterol Thyroxine (T4) TSH 3rd Generation Urine Opiates Screen Urine Methadone Screen Ur Barbiturates Screen Ur Phencyclidine Scrn Ur Amphetamines Screen U Benzodiazepines Scrn U Oth Cocaine Metabols U Cannabinoids Screen 06/25/17 06/25/17 06/26/17 22:43 23:32 00:38 WBC RBC Hgb Hct MCV MCH MCHC RDW Plt Count MPV Gran % Lymph % (Auto) [place] % (Auto) Eos % (Auto) Baso % (Auto) Gran # Lymph # [place] # Eos # Baso # pCO2 pO2 HCO3 ABG pH ABG Total CO2 ABG O2 Saturation ABG O2 Content ABG Base Excess ABG Hemoglobin ABG Carboxyhemoglobin POC ABG HHb (Measured) ABG Methemoglobin ABG O2 Capacity Hgb O2 Saturation FiO2 Sodium Potassium Chloride Carbon Dioxide Anion Gap BUN Creatinine Est GFR ( Amer) Est GFR (Non-Af Amer) POC Glucose (mg/dL) 125 H 128 H 145 H Random Glucose Calcium Phosphorus Magnesium Triglycerides Cholesterol LDL Cholesterol Direct HDL Cholesterol Thyroxine (T4) TSH 3rd Generation Urine Opiates Screen Urine Methadone Screen Ur Barbiturates Screen Ur Phencyclidine Scrn Ur Amphetamines Screen U Benzodiazepines Scrn U Oth Cocaine Metabols U Cannabinoids Screen 06/26/17 06/26/17 06/26/17 02:34 04:34 05:08 WBC 4.3 L D RBC 3.54 Hgb 11.6 L Hct 33.5 L MCV 94.6 MCH 32.8 MCHC 34.6 RDW 12.4 Plt Count 233 MPV 9.6 Gran % 32.1 L Lymph % (Auto) 57.9 H [place] % (Auto) 6.5 H Eos % (Auto) 3.0 Baso % (Auto) 0.5 Gran # 1.38 L Lymph # 2.5 [place] # 0.3 Eos # 0.1 Baso # 0.02 pCO2 pO2 HCO3 ABG pH ABG Total CO2 ABG O2 Saturation ABG O2 Content ABG Base Excess ABG Hemoglobin ABG Carboxyhemoglobin POC ABG HHb (Measured) ABG Methemoglobin ABG O2 Capacity Hgb O2 Saturation FiO2 Sodium Potassium Chloride Carbon Dioxide Anion Gap BUN Creatinine Est GFR ( Amer) Est GFR (Non-Af Amer) POC Glucose (mg/dL) 173 H 165 H Random Glucose Calcium Phosphorus Magnesium Triglycerides Cholesterol LDL Cholesterol Direct HDL Cholesterol Thyroxine (T4) TSH 3rd Generation Urine Opiates Screen Urine Methadone Screen Ur Barbiturates Screen Ur Phencyclidine Scrn Ur Amphetamines Screen U Benzodiazepines Scrn U Oth Cocaine Metabols U Cannabinoids Screen 06/26/17 06/26/17 06/26/17 05:35 05:35 05:35 WBC RBC Hgb Hct MCV MCH MCHC RDW Plt Count MPV Gran % Lymph % (Auto) [place] % (Auto) Eos % (Auto) Baso % (Auto) Gran # Lymph # [place] # Eos # Baso # pCO2 pO2 HCO3 ABG pH ABG Total CO2 ABG O2 Saturation ABG O2 Content ABG Base Excess ABG Hemoglobin ABG Carboxyhemoglobin POC ABG HHb (Measured) ABG Methemoglobin ABG O2 Capacity Hgb O2 Saturation FiO2 Sodium 137 Potassium 3.1 L Chloride 111 H Carbon Dioxide 19 L Anion Gap 10 BUN 9 Creatinine 0.6 Est GFR ( Amer) > 60 Est GFR (Non-Af Amer) > 60 POC Glucose (mg/dL) Random Glucose 144 H Calcium 7.3 L Phosphorus Magnesium 1.4 L Triglycerides 273 H Cholesterol 189 LDL Cholesterol Direct 104 HDL Cholesterol 34 Thyroxine (T4) 4.0 L TSH 3rd Generation 32.40 H Urine Opiates Screen Urine Methadone Screen Ur Barbiturates Screen Ur Phencyclidine Scrn Ur Amphetamines Screen U Benzodiazepines Scrn U Oth Cocaine Metabols U Cannabinoids Screen 06/26/17 06/26/17 06/26/17 06:27 07:50 10:10 WBC RBC Hgb Hct MCV MCH MCHC RDW Plt Count MPV Gran % Lymph % (Auto) [place] % (Auto) Eos % (Auto) Baso % (Auto) Gran # Lymph # [place] # Eos # Baso # pCO2 pO2 HCO3 ABG pH ABG Total CO2 ABG O2 Saturation ABG O2 Content ABG Base Excess ABG Hemoglobin ABG Carboxyhemoglobin POC ABG HHb (Measured) ABG Methemoglobin ABG O2 Capacity Hgb O2 Saturation FiO2 Sodium Potassium Chloride Carbon Dioxide Anion Gap BUN Creatinine Est GFR ( Amer) Est GFR (Non-Af Amer) POC Glucose (mg/dL) 186 H 130 H 191 H Random Glucose Calcium Phosphorus Magnesium Triglycerides Cholesterol LDL Cholesterol Direct HDL Cholesterol Thyroxine (T4) TSH 3rd Generation Urine Opiates Screen Urine Methadone Screen Ur Barbiturates Screen Ur Phencyclidine Scrn Ur Amphetamines Screen U Benzodiazepines Scrn U Oth Cocaine Metabols U Cannabinoids Screen 06/26/17 06/26/17 06/26/17 12:05 12:17 12:54 WBC RBC Hgb Hct MCV MCH MCHC RDW Plt Count MPV Gran % Lymph % (Auto) [place] % (Auto) Eos % (Auto) Baso % (Auto) Gran # Lymph # [place] # Eos # Baso # pCO2 pO2 HCO3 ABG pH ABG Total CO2 ABG O2 Saturation ABG O2 Content ABG Base Excess ABG Hemoglobin ABG Carboxyhemoglobin POC ABG HHb (Measured) ABG Methemoglobin ABG O2 Capacity Hgb O2 Saturation FiO2 Sodium 136 Potassium 3.2 L Chloride 109 H Carbon Dioxide 18 L Anion Gap 12 BUN 9 Creatinine 0.5 Est GFR ( Amer) > 60 Est GFR (Non-Af Amer) > 60 POC Glucose (mg/dL) 148 H Random Glucose 128 H Calcium 7.7 L Phosphorus 2.6 Magnesium 1.9 Triglycerides Cholesterol LDL Cholesterol Direct HDL Cholesterol Thyroxine (T4) TSH 3rd Generation Urine Opiates Screen Urine Methadone Screen Ur Barbiturates Screen Ur Phencyclidine Scrn Ur Amphetamines Screen U Benzodiazepines Scrn U Oth Cocaine Metabols U Cannabinoids Screen Fingerstick Blood Sugar Results: 148 Critical Care Progress Note - Ventilator Checklist PUD Prophalyxis: Yes DVT Prophylaxis: Yes - Nutrition Nutrition: Nutrition Category Date Time Status Consistent Carbohydrate [DIET] Diets 06/26/17 Breakfast Ordered Assessment/Plan - Assessment and Plan (Free Text) Assessment: 36 y/o F w/ Resolved DKA Off insulin drip protocol and feeling much better BMP shows AG closure and bicarbonate improving. CT abd shows colitis of uncertain cause, would need follow up with GI and evaluation for IBD vs Infectious. DM management needed per Endocrine team. Currently on Levimir and RISS to keep BS 140-180. dvt p cc time 35 min
[2017-06-26 16:44] LABS: GFR AFRICAN-AMERICAN > 60; GFR NON-AFRICAN AMERICAN > 60
[2017-06-26 17:01] LABS: BLOOD UREA NITROGEN 9 mg/dL (7-21); CALCIUM 7.9 mg/dL (8.4-10.5)
--- NOTE | 2017-06-26 18:44 | CP.PCM.PN ---
Subjective - Date & Time of Evaluation Date of Evaluation: 06/26/17 Time of Evaluation: 08:00 - Subjective Subjective: Internal Medicine Progress Note for Dr. Monge Patient is now stable. seen and examined at bedside with admission of 3 loose BM overnight. Patient admits to slight tenderness in abdomen, denies headaches, F/C, N/V, constipation. Patient states she feels better than when she came in. Her vision is no longer blurry Random glucose- 128, Anion Gap- 7, Potassium- 3.2 Patient did not tolerate IV Potassium and was placed on PO KCl 40meq. TSH 32.40 , patient states she was placed on synthroid 125 mcg one week ago. Patient told to follow up with primary care doctor for recheck of thyroid levels in 4 weeks. Objective - Vital Signs/Intake and Output Vital Signs (last 24 hours): Temp Pulse Resp BP Pulse Ox 98.7 F 95 H 23 107/75 95 06/26/17 16:00 06/26/17 18:20 06/26/17 18:20 06/26/17 16:00 06/26/17 18:20 Intake and Output: 06/26/17 06/26/17 06:59 18:59 Intake Total 1805 1100 Output Total 700 Balance 1105 1100 - Medications Medications: Current Medications Acetaminophen (Tylenol 325mg Tab) 650 mg PO Q6H PRN PRN Reason: Headache Last Admin: 06/26/17 10:56 Dose: 650 mg Atenolol (Tenormin) 12.5 mg PO DAILY [facility] Last Admin: 06/26/17 09:46 Dose: Not Given Divalproex Sodium (Depakote Er(Once Daily)) 500 mg PO DAILY [facility] PRN Reason: Protocol Last Admin: 06/26/17 09:46 Dose: 500 mg Gabapentin (Neurontin) 300 mg PO TID [facility] PRN Reason: Protocol Last Admin: 06/26/17 17:17 Dose: 300 mg Insulin Human Regular 100 (units/ Sodium Chloride) 100 mls @ 5 mls/hr IV .Q20H PRN; Protocol; 5 UNITS/HR PRN Reason: TITRATE PER MD ORDER Last Titration: 06/25/17 20:40 Dose: 1.5 units/hr, 1.5 mls/hr Dextrose/Sodium Chloride (Dextrose 5%/0.9% Ns 1000 Ml) 1,000 mls @ 150 mls/hr IV .Q6H40M [facility] Last Admin: 06/26/17 01:00 Dose: 150 mls/hr Insulin Detemir (Levemir) 30 unit SC HS [facility] Last Admin: 06/25/17 22:59 Dose: 30 unit Insulin Human Regular (Humulin R Low) 0 units SC ACHS [facility] PRN Reason: Protocol Levothyroxine Sodium (Synthroid) 125 mcg PO DAILY [facility] Last Admin: 06/26/17 09:46 Dose: 125 mcg Lisinopril (Zestril) 5 mg PO DAILY [facility] Last Admin: 06/26/17 09:47 Dose: Not Given Ondansetron HCl (Zofran Inj) 4 mg IVP Q4H PRN PRN Reason: Nausea/Vomiting Last Admin: 06/26/17 15:46 Dose: 4 mg Pantoprazole Sodium (Protonix Inj) 40 mg IVP DAILY [facility] Last Admin: 06/26/17 09:44 Dose: 40 mg Potassium Chloride (Klor-Con 10) 40 meq PO TID [facility] Last Admin: 06/26/17 17:17 Dose: 40 meq Zolpidem Tartrate (Ambien) 5 mg PO HS PRN; Protocol PRN Reason: Insomnia Last Admin: 06/25/17 22:59 Dose: 5 mg - Labs Labs: 06/26/17 05:08 06/26/17 16:25 Assessment and Plan - Assessment and Plan (Free Text) Assessment: 36 year old woman admitted for DKA with a PMH of IDDM, hypothyroidism, HTN, bipolar disorder, alcohol abuse, and brain tumor s/p resection. PT presents with nausea, vomiting, and diarrhea Plan: Diabetic Ketoacidosis, resolved, anion gap closed Accucheck Monitor anion gap, f/u electrolytes, monitor glucose levels Monitor Mental Status Random glucose- 128, Anion Gap- 7, Potassium- 3.2 Diet: NPO monitor I & Os Zofran for N/V ID: f/u stool culture pending to r/o C. diff colitis etiology Diabetes Diabetic education and radial arm saw operator consult ordered Hypertension Continue lisinopril, atenolol Hyperthyroidism monitor TSH, Thyroid levels Continue synthroid Bipolar disorder Continue depakote GI PPx Protonix Monitor Patient, f/u lab results, Plan for discharge Danielle Hernandez, DO PGY1
[2017-06-26 20:49] LABS: BLOOD UREA NITROGEN 9 mg/dL (7-21); CALCIUM 7.9 mg/dL (8.4-10.5); GFR AFRICAN-AMERICAN > 60; GFR NON-AFRICAN AMERICAN > 60
[2017-06-26] MEDS: Insulin Detemir 100 units/ml Vial (Levemir) SC SCH (22:12)
[2017-06-27] MEDS: Insulin Reg-LOW-Coverage SC SCH ×4 (08:59→22:29)
[2017-06-27] MEDS ORDERED: Insulin Detemir 100 units/ml Vial (Levemir) SC SCH (10:15)
[2017-06-27] MEDS: Potassium Chloride 10 mEq ER Tab PO SCH ×3 (11:01→17:07)
[2017-06-27] MEDS: Divalproex 500 mg ER (ONCE DAILY formulation) PO SCH (11:02)
[2017-06-27] MEDS: Levothyroxine 125 MCG TAB PO SCH (11:04)
[2017-06-27] MEDS: Sodium Chloride 0.9% 1,000 ML IV SCH (11:06)
--- NOTE | 2017-06-27 12:31 | CP.PCM.PN ---
<Girish Acosta - Last Filed: 06/27/17 12:28> Subjective - Date & Time of Evaluation Date of Evaluation: 06/27/17 Time of Evaluation: 12:28 - Subjective Subjective: Patient seen and examined in the AM on [facility]. No acute events overnight. Patient was transferred from ICU to [facility] yesterday after AG closed. She remains admitted for c. diff rule out. The patient continues to have watery loose diarrhea. She is able to tolerate liquids and meal.She denies fever, shortness of breath, chest pain, nausea, vomiting, blood in stool and abdominal pain. Objective - Vital Signs/Intake and Output Vital Signs (last 24 hours): Temp Pulse Resp BP Pulse Ox 98.1 F 93 H 20 97/73 L 100 06/27/17 08:20 06/27/17 08:20 06/27/17 08:20 06/27/17 11:05 06/27/17 08:20 Intake and Output: 06/27/17 06/27/17 06:59 18:59 Intake Total 240 Balance 240 - Medications Medications: Current Medications Acetaminophen (Tylenol 325mg Tab) 650 mg PO Q6H PRN PRN Reason: Headache Last Admin: 06/27/17 08:32 Dose: 650 mg Atenolol (Tenormin) 12.5 mg PO DAILY [facility] Last Admin: 06/27/17 11:03 Dose: Not Given Divalproex Sodium (Depakote Er(Once Daily)) 500 mg PO DAILY [facility] PRN Reason: Protocol Last Admin: 06/27/17 11:02 Dose: 500 mg Gabapentin (Neurontin) 300 mg PO TID [facility] PRN Reason: Protocol Last Admin: 06/27/17 11:05 Dose: 300 mg Sodium Chloride (Sodium Chloride 0.9%) 1,000 mls @ 100 mls/hr IV .Q10H [facility] Last Admin: 06/27/17 11:06 Dose: 100 mls/hr Insulin Detemir (Levemir) 34 unit SC HS [facility] Insulin Human Regular (Humulin R Low) 0 units SC ACHS [facility] PRN Reason: Protocol Last Admin: 06/27/17 08:59 Dose: 4 units Levothyroxine Sodium (Synthroid) 125 mcg PO DAILY [facility] Last Admin: 06/27/17 11:04 Dose: 125 mcg Lisinopril (Zestril) 5 mg PO DAILY [facility] Last Admin: 06/27/17 11:05 Dose: Not Given Metronidazole (Flagyl) 500 mg PO Q8 [facility] PRN Reason: Protocol Ondansetron HCl (Zofran Inj) 4 mg IVP Q4H PRN PRN Reason: Nausea/Vomiting Last Admin: 06/27/17 11:05 Dose: 4 mg Pantoprazole Sodium (Protonix Inj) 40 mg IVP DAILY [facility] Last Admin: 06/27/17 11:01 Dose: 40 mg Potassium Chloride (Klor-Con 10) 40 meq PO TID [facility] Last Admin: 06/27/17 11:01 Dose: 40 meq Zolpidem Tartrate (Ambien) 5 mg PO HS PRN; Protocol PRN Reason: Insomnia Last Admin: 06/26/17 22:12 Dose: 5 mg - Labs Labs: 06/26/17 05:08 06/26/17 20:30 - Head Exam Head Exam: ATRAUMATIC, NORMAL INSPECTION - Eye Exam Eye Exam: EOMI, PERRL - ENT Exam ENT Exam: Mucous Membranes Moist, Normal Exam - Neck Exam Neck Exam: Full ROM - Respiratory Exam Respiratory Exam: Clear to Ausculation Bilateral, NORMAL BREATHING PATTERN - Cardiovascular Exam Cardiovascular Exam: REGULAR RHYTHM, +S1, +S2 - GI/Abdominal Exam GI & Abdominal Exam: Soft, Hypoactive Bowel Sounds. absent: Tenderness - Extremities Exam Extremities Exam: Full ROM, Normal Capillary Refill, Normal Inspection - Neurological Exam Neurological Exam: Alert, Awake, CN II-XII Intact, Oriented x3 Neuro motor strength exam: Left Upper Extremity: 5, Right Upper Extremity: 5, Left Lower Extremity: 5, Right Lower Extremity: 5 - Psychiatric Exam Psychiatric exam: Normal Affect, Normal Mood - Skin Skin Exam: Dry, Warm Assessment and Plan (1) Diabetic ketoacidosis Status: Acute - Assessment and Plan (Free Text) Assessment: PAtient is a 36 year old woman with past medical history of IDDM, hypothyroid, hypertension, biolar disorder and alcohol abuse who was admitted for DKA Plan: 1. DKA - AG closed - Continue to monitor electrolytes and glucose level - Patient diet to high fiber - zofran for n/v 2. Colitis r/o C. Diff - CT scan showing nonspecific diffuse infectious/inflammatory colitis, no evidence of perforation (06/25) - C. diff toxin ordered - Fecal leukocytes ordered - Flagyl for diarrhea - IVF 3. IDDM - bg elevated, will increase insulin Levemir - ACHS 4. Hyperthyoidism - TSH levels 32.40, T4 4.0 - Continue synthroid at 125mcg for four weeks with plan recheck outpatient 5. Hx of bipolar - continue depakote 6. GI PPX - protonix dispo: Patient continues to have diarrhea, C. diff toxin pending, plan to dc in 24-48 hours <Lexi Khan - Last Filed: 06/27/17 16:11> Objective - Vital Signs/Intake and Output Vital Signs (last 24 hours): Temp Pulse Resp BP Pulse Ox 98.1 F 93 H 20 97/73 L 100 06/27/17 08:20 06/27/17 08:20 06/27/17 08:20 06/27/17 11:05 06/27/17 08:20 Intake and Output: 06/27/17 06/27/17 06:59 18:59 Intake Total 240 0 Balance 240 0 - Medications Medications: Current Medications Acetaminophen (Tylenol 325mg Tab) 650 mg PO Q6H PRN PRN Reason: Headache Last Admin: 06/27/17 08:32 Dose: 650 mg Atenolol (Tenormin) 12.5 mg PO DAILY [facility] Last Admin: 06/27/17 11:03 Dose: Not Given Divalproex Sodium (Depakote Er(Once Daily)) 500 mg PO DAILY [facility] PRN Reason: Protocol Last Admin: 06/27/17 11:02 Dose: 500 mg Gabapentin (Neurontin) 300 mg PO TID [facility] PRN Reason: Protocol Last Admin: 06/27/17 13:31 Dose: 300 mg Sodium Chloride (Sodium Chloride 0.9%) 1,000 mls @ 100 mls/hr IV .Q10H [facility] Last Admin: 06/27/17 11:06 Dose: 100 mls/hr Insulin Detemir (Levemir) 34 unit SC HS [facility] Insulin Human Regular (Humulin R Low) 0 units SC ACHS [facility] PRN Reason: Protocol Last Admin: 06/27/17 12:30 Dose: 1 units Levothyroxine Sodium (Synthroid) 125 mcg PO DAILY [facility] Last Admin: 06/27/17 11:04 Dose: 125 mcg Lisinopril (Zestril) 5 mg PO DAILY [facility] Last Admin: 06/27/17 11:05 Dose: Not Given Metronidazole (Flagyl) 500 mg PO Q8 [facility] PRN Reason: Protocol Last Admin: 06/27/17 13:33 Dose: 500 mg Ondansetron HCl (Zofran Inj) 4 mg IVP Q4H PRN PRN Reason: Nausea/Vomiting Last Admin: 06/27/17 11:05 Dose: 4 mg Pantoprazole Sodium (Protonix Inj) 40 mg IVP DAILY [facility] Last Admin: 06/27/17 11:01 Dose: 40 mg Potassium Chloride (Klor-Con 10) 40 meq PO TID [facility] Last Admin: 06/27/17 13:33 Dose: 40 meq Zolpidem Tartrate (Ambien) 5 mg PO HS PRN; Protocol PRN Reason: Insomnia Last Admin: 06/26/17 22:12 Dose: 5 mg - Labs Labs: 06/26/17 05:08 06/26/17 20:30 Attending/Attestation - Attestation I have personally seen and examined this patient.: Yes I have fully participated in the care of the patient.: Yes I have reviewed all pertinent clinical information, including history, physical exam and plan: Yes Notes (Text): 06/27/17 16:07 attending note; Patient seen and examined with resident. Patient is a 36 year old woman with the PMH of IDDM, hypothyroidism, HTN, bipolar disorder, alcohol abuse, and brain tumor s/p resection is admitted with DKA. Currently DKA is resolved. Continue Levemir. Nausea or vomiting; started on IV Zofran and Protonix. CT abdomen and pelvis showed mild colitis. Currently on by mouth flagyl. Diarrhea; recent use of anti-biotics.stool for C. difficile ordered. Continues to have diarrhea. hypothyroidism; continue Synthroid. possible discharge home tomorrow if diarrhea improves. Upon discharge the patient will follow-up PMD . 06/27/17 16:10
[2017-06-28] MEDS: Sodium Chloride 0.9% 1,000 ML IV SCH (00:51)
[2017-06-28 08:09] LABS: BLOOD UREA NITROGEN 14 mg/dL (7-21); CALCIUM 8.8 mg/dL (8.4-10.5); GFR AFRICAN-AMERICAN > 60; GFR NON-AFRICAN AMERICAN > 60
[2017-06-28] MEDS: Insulin Reg-LOW-Coverage SC SCH (08:19)
[2017-06-28 08:53] VITALS: BP 113/76; PULSE 88; RESP 18; TEMP 97.5; O2SAT 93
--- NOTE | 2017-06-28 17:39 | CP.PCM.DIS ---
<Girish Acosta - Last Filed: 06/30/17 16:28> Provider - Provider Date of Admission: 06/25/17 15:27 Attending physician: Lexi Khan MD Primary care physician: Patsy Noland DO Time Spent in preparation of Discharge (in minutes): 30 Diagnosis - Discharge Diagnosis (1) Diabetic ketoacidosis Status: Acute Hospital Course - Lab Results Lab Results: Micro Results 06/25/17 20:45 Naris MRSA Culture (Admit) - Final MRSA NOT DETECTED Most Recent Lab Values WBC 4.3 10^3/ul (4.5-11.0) L D 06/26/17 05:08 RBC 3.54 10^6/uL (3.5-6.1) 06/26/17 05:08 Hgb 11.6 gm/dL (12.0-16.0) L 06/26/17 05:08 Hct 33.5 % (36.0-48.0) L 06/26/17 05:08 MCV 94.6 fL (80.0-105.0) 06/26/17 05:08 MCH 32.8 pg (25.0-35.0) 06/26/17 05:08 MCHC 34.6 g/dl (31.0-37.0) 06/26/17 05:08 RDW 12.4 % (11.5-14.5) 06/26/17 05:08 Plt Count 233 10^3/uL (120.0-450.0) 06/26/17 05:08 MPV 9.6 fl (7.0-11.0) 06/26/17 05:08 Gran % 32.1 % (50.0-68.0) L 06/26/17 05:08 Lymph % (Auto) 57.9 % (22.0-35.0) H 06/26/17 05:08 Lagrange % (Auto) 6.5 % (1.0-6.0) H 06/26/17 05:08 Eos % (Auto) 3.0 % (1.5-5.0) 06/26/17 05:08 Baso % (Auto) 0.5 % (0.0-3.0) 06/26/17 05:08 Gran # 1.38 (1.4-6.5) L 06/26/17 05:08 Lymph # 2.5 (1.2-3.4) 06/26/17 05:08 Lagrange # 0.3 (0.1-0.6) 06/26/17 05:08 Eos # 0.1 (0.0-0.7) 06/26/17 05:08 Baso # 0.02 K/mm3 (0.0-2.0) 06/26/17 05:08 pCO2 27 mm/Hg (35-45) L 06/25/17 16:29 pO2 100.0 mm/Hg (80-100) 06/25/17 16:29 HCO3 13.3 mmol/L (21-28) L 06/25/17 16:29 ABG pH 7.30 (7.35-7.45) L 06/25/17 16:29 ABG Total CO2 14.1 mmol.L (22-28) L 06/25/17 16:29 ABG O2 Saturation 97.5 % (95-98) 06/25/17 16:29 ABG O2 Content 16.5 ML/dl (15-23) 06/25/17 16:29 ABG Base Excess -11.6 mmol/L (-2.0-3.0) L 06/25/17 16:29 ABG Hemoglobin 12.2 g/dL (11.7-17.4) 06/25/17 16:29 ABG Carboxyhemoglobin 1.6 % (0.5-1.5) H 06/25/17 16:29 POC ABG HHb (Measured) 2.4 % (0-5) 06/25/17 16:29 ABG Methemoglobin 0.8 % (0.0-3.0) 06/25/17 16:29 ABG O2 Capacity 16.9 mL/dl (16-24) 06/25/17 16:29 Hgb O2 Saturation 95.2 % (95.0-98.0) 06/25/17 16:29 FiO2 21.0 % 06/25/17 16:29 Sodium 135 mmol/L (132-148) 06/28/17 07:00 Potassium 3.9 mmol/L (3.6-5.0) 06/28/17 07:00 Chloride 102 mmol/L (98-107) 06/28/17 07:00 Carbon Dioxide 26 mmol/L (21-33) 06/28/17 07:00 Anion Gap 11 (10-20) 06/28/17 07:00 BUN 14 mg/dL (7-21) 06/28/17 07:00 Creatinine 0.6 mg/dL (0.5-1.4) 06/28/17 07:00 Est GFR ( Amer) > 60 06/28/17 07:00 Est GFR (Non-Af Amer) > 60 06/28/17 07:00 POC Glucose (mg/dL) 286 mg/dL (65-110) H 06/28/17 07:37 Random Glucose 262 mg/dL (70-110) H 06/28/17 07:00 Calcium 8.8 mg/dL (8.4-10.5) 06/28/17 07:00 Phosphorus 2.6 mg/dL (2.5-4.5) 06/26/17 12:54 Magnesium 1.9 mg/dL (1.7-2.2) 06/26/17 12:54 Total Bilirubin 0.6 mg/dL (0.2-1.3) 06/25/17 13:30 AST 13 U/L (15-39) L 06/25/17 13:30 ALT 18 U/L (7-56) 06/25/17 13:30 Alkaline Phosphatase 62 U/L (38-133) 06/25/17 13:30 Lactate Dehydrogenase 312 U/L (333-699) L 06/25/17 13:30 Total Creatine Kinase 20 U/L (35-230) L 06/25/17 13:30 Troponin I < 0.01 ng/mL 06/25/17 13:30 NT-Pro-B Natriuret Pep 36.4 pg/mL (0-450) 06/25/17 13:30 Total Protein 7.5 g/dL (5.8-8.3) 06/25/17 13:30 Albumin 4.5 g/dL (3.0-4.8) 06/25/17 13:30 Globulin 3.0 gm/dL 06/25/17 13:30 Albumin/Globulin Ratio 1.5 (1.1-1.8) 06/25/17 13:30 Triglycerides 273 mg/dL (35-160) H 06/26/17 05:35 Cholesterol 189 mg/dL (130-200) 06/26/17 05:35 LDL Cholesterol Direct 104 mg/dL (0-129) 06/26/17 05:35 HDL Cholesterol 34 mg/dL (29-60) 06/26/17 05:35 Amylase 59 U/L (35-125) 06/25/17 14:32 Lipase 106 U/L (23-300) 06/25/17 14:32 Thyroxine (T4) 4.0 ug/dL (5.5-11.0) L 06/26/17 05:35 TSH 3rd Generation 32.40 mIU/mL (0.46-4.68) H 06/26/17 05:35 Urine Color Straw (YELLOW) 06/25/17 13:30 Urine Appearance Clear (CLEAR) 06/25/17 13:30 Urine pH 6.0 (4.7-8.0) 06/25/17 13:30 Ur Specific Orange 1.025 (1.005-1.035) 06/25/17 13:30 Urine Protein Negative mg/dL (<30 mg/dL) 06/25/17 13:30 Urine Glucose (UA) >=1000 mg/dL (NEGATIVE) 06/25/17 13:30 Urine Ketones >=80 mg/dL (NEGATIVE) 06/25/17 13:30 Urine Blood Negative (NEGATIVE) 06/25/17 13:30 Urine Nitrate Negative (NEGATIVE) 06/25/17 13:30 Urine Bilirubin Negative (NEGATIVE) 06/25/17 13:30 Urine Urobilinogen 0.2 E.U./dL (<1 E.U./dL) 06/25/17 13:30 Ur Leukocyte Esterase Negative Helene/uL (NEGATIVE) 06/25/17 13:30 Urine Opiates Screen Negative (NEGATIVE) 06/25/17 16:00 Urine Methadone Screen Negative (NEGATIVE) 06/25/17 16:00 Ur Barbiturates Screen Negative (NEGATIVE) 06/25/17 16:00 Ur Phencyclidine Scrn Negative (NEGATIVE) 06/25/17 16:00 Ur Amphetamines Screen Negative (NEGATIVE) 06/25/17 16:00 U Benzodiazepines Scrn Negative (NEGATIVE) 06/25/17 16:00 U Oth Cocaine Metabols Negative (NEGATIVE) 06/25/17 16:00 U Cannabinoids Screen Negative (NEGATIVE) 06/25/17 16:00 Alcohol, Quantitative < 10 mg/dL (0-10) 06/25/17 14:50 - Hospital Course Hospital Course: Patient is a 36 year old female with past medical history of uncontrolled diabetes mellitus, bipolar disorder, alcohol abuse, brain tumor s/p resection and hypothryroidism who presented to the emergency department for DKA. The patient was evaluated and found to have elevated anion gap of 29 and blood glucose of 463. She was admitted to the ICU for fluid resuscitation and further monitoring. Her DKA resolved and she was able to tolerate food by mouth and control of her bg with levemir. Patient was noted to have watery diarrhea on presentation. CT of abdomen and pelvis showed mild colitis. The patient was evaluated for likely origin with c. diff panel. She was treated with flagyl and IVF. Diarrhea was suspected to recent use of anti-biotics. Patient TSH was evaluated and found to be elevated. Continued her home dose of synthroid. The patient was tranistioned to the floor after her DKA was resolved. She was found to be hemodynamically stable and discharged for further outpatient follow up. - Date & Time of H&P Date of H&P: 06/25/17 Time of H&P: 18:38 Discharge Exam - Head Exam Head Exam: ATRAUMATIC, NORMAL INSPECTION - Eye Exam Eye Exam: EOMI, PERRL - Neck Exam Neck exam: Full Rom - Respiratory Exam Respiratory Exam: Clear to PA & Lateral, NORMAL BREATHING PATTERN - Cardiovascular Exam Cardiovascular Exam: REGULAR RHYTHM, +S1, +S2 - GI/Abdominal Exam GI & Abdominal Exam: Normal Bowel Sounds, Soft, Unremarkable. absent: Tenderness - Extremities Exam Extremities exam: full ROM, normal capillary refill, pedal pulses present - Back Exam Back exam: FULL ROM - Neurological Exam Neurological exam: Alert, CN II-XII Intact, Normal Gait, Oriented x3, Reflexes Normal - Psychiatric Exam Psychiatric exam: Normal Affect, Normal Mood - Skin Skin Exam: Dry, Intact, Normal Color, Warm Discharge Plan - Discharge Medications Prescriptions: Gabapentin [Neurontin] 600 mg PO TID #30 cap Insulin Detemir [Levemir] 30 unit SC BID #60 ml Metronidazole [Flagyl] 500 mg PO Q8 #15 tab Ondansetron HCl [Zofran] 4 mg PO Q6 #10 ml - Follow Up Plan Condition: IMPROVED Disposition: HOME/ ROUTINE Instructions: How to Check Your Blood Sugar (DC), Diabetic Ketoacidosis (DC), Diabetic Ketoacidosis (GEN), Diabetes Mellitus Type 2 in Adults (DC), Basic Carbohydrate Counting (DC) Additional Instructions: Discharge Plan for patient F/u TSH level in 4 weeks. f/u with PMD Dr. Noland in one week continue current dose of synthroid 125 mcgs POQD Follow up with DR. Hernandez operating room nurse. Referrals: Patsy Noland DO [Primary Care Provider] - <Lexi Khan - Last Filed: 06/30/17 16:59> Provider - Provider Date of Admission: 06/25/17 15:27 Attending physician: Lexi Khan MD Primary care physician: Patsy Noland DO Hospital Course - Lab Results Lab Results: Micro Results 06/25/17 20:45 Naris MRSA Culture (Admit) - Final MRSA NOT DETECTED Most Recent Lab Values WBC 4.3 10^3/ul (4.5-11.0) L D 06/26/17 05:08 RBC 3.54 10^6/uL (3.5-6.1) 06/26/17 05:08 Hgb 11.6 gm/dL (12.0-16.0) L 06/26/17 05:08 Hct 33.5 % (36.0-48.0) L 06/26/17 05:08 MCV 94.6 fL (80.0-105.0) 06/26/17 05:08 MCH 32.8 pg (25.0-35.0) 06/26/17 05:08 MCHC 34.6 g/dl (31.0-37.0) 06/26/17 05:08 RDW 12.4 % (11.5-14.5) 06/26/17 05:08 Plt Count 233 10^3/uL (120.0-450.0) 06/26/17 05:08 MPV 9.6 fl (7.0-11.0) 06/26/17 05:08 Gran % 32.1 % (50.0-68.0) L 06/26/17 05:08 Lymph % (Auto) 57.9 % (22.0-35.0) H 06/26/17 05:08 Lagrange % (Auto) 6.5 % (1.0-6.0) H 06/26/17 05:08 Eos % (Auto) 3.0 % (1.5-5.0) 06/26/17 05:08 Baso % (Auto) 0.5 % (0.0-3.0) 06/26/17 05:08 Gran # 1.38 (1.4-6.5) L 06/26/17 05:08 Lymph # 2.5 (1.2-3.4) 06/26/17 05:08 Lagrange # 0.3 (0.1-0.6) 06/26/17 05:08 Eos # 0.1 (0.0-0.7) 06/26/17 05:08 Baso # 0.02 K/mm3 (0.0-2.0) 06/26/17 05:08 pCO2 27 mm/Hg (35-45) L 06/25/17 16:29 pO2 100.0 mm/Hg (80-100) 06/25/17 16:29 HCO3 13.3 mmol/L (21-28) L 06/25/17 16:29 ABG pH 7.30 (7.35-7.45) L 06/25/17 16:29 ABG Total CO2 14.1 mmol.L (22-28) L 06/25/17 16:29 ABG O2 Saturation 97.5 % (95-98) 06/25/17 16:29 ABG O2 Content 16.5 ML/dl (15-23) 06/25/17 16:29 ABG Base Excess -11.6 mmol/L (-2.0-3.0) L 06/25/17 16:29 ABG Hemoglobin 12.2 g/dL (11.7-17.4) 06/25/17 16:29 ABG Carboxyhemoglobin 1.6 % (0.5-1.5) H 06/25/17 16:29 POC ABG HHb (Measured) 2.4 % (0-5) 06/25/17 16:29 ABG Methemoglobin 0.8 % (0.0-3.0) 06/25/17 16:29 ABG O2 Capacity 16.9 mL/dl (16-24) 06/25/17 16:29 Hgb O2 Saturation 95.2 % (95.0-98.0) 06/25/17 16:29 FiO2 21.0 % 06/25/17 16:29 Sodium 135 mmol/L (132-148) 06/28/17 07:00 Potassium 3.9 mmol/L (3.6-5.0) 06/28/17 07:00 Chloride 102 mmol/L (98-107) 06/28/17 07:00 Carbon Dioxide 26 mmol/L (21-33) 06/28/17 07:00 Anion Gap 11 (10-20) 06/28/17 07:00 BUN 14 mg/dL (7-21) 06/28/17 07:00 Creatinine 0.6 mg/dL (0.5-1.4) 06/28/17 07:00 Est GFR ( Amer) > 60 06/28/17 07:00 Est GFR (Non-Af Amer) > 60 06/28/17 07:00 POC Glucose (mg/dL) 286 mg/dL (65-110) H 06/28/17 07:37 Random Glucose 262 mg/dL (70-110) H 06/28/17 07:00 Calcium 8.8 mg/dL (8.4-10.5) 06/28/17 07:00 Phosphorus 2.6 mg/dL (2.5-4.5) 06/26/17 12:54 Magnesium 1.9 mg/dL (1.7-2.2) 06/26/17 12:54 Total Bilirubin 0.6 mg/dL (0.2-1.3) 06/25/17 13:30 AST 13 U/L (15-39) L 06/25/17 13:30 ALT 18 U/L (7-56) 06/25/17 13:30 Alkaline Phosphatase 62 U/L (38-133) 06/25/17 13:30 Lactate Dehydrogenase 312 U/L (333-699) L 06/25/17 13:30 Total Creatine Kinase 20 U/L (35-230) L 06/25/17 13:30 Troponin I < 0.01 ng/mL 06/25/17 13:30 NT-Pro-B Natriuret Pep 36.4 pg/mL (0-450) 06/25/17 13:30 Total Protein 7.5 g/dL (5.8-8.3) 06/25/17 13:30 Albumin 4.5 g/dL (3.0-4.8) 06/25/17 13:30 Globulin 3.0 gm/dL 06/25/17 13:30 Albumin/Globulin Ratio 1.5 (1.1-1.8) 06/25/17 13:30 Triglycerides 273 mg/dL (35-160) H 06/26/17 05:35 Cholesterol 189 mg/dL (130-200) 06/26/17 05:35 LDL Cholesterol Direct 104 mg/dL (0-129) 06/26/17 05:35 HDL Cholesterol 34 mg/dL (29-60) 06/26/17 05:35 Amylase 59 U/L (35-125) 06/25/17 14:32 Lipase 106 U/L (23-300) 06/25/17 14:32 Thyroxine (T4) 4.0 ug/dL (5.5-11.0) L 06/26/17 05:35 TSH 3rd Generation 32.40 mIU/mL (0.46-4.68) H 06/26/17 05:35 Urine Color Straw (YELLOW) 06/25/17 13:30 Urine Appearance Clear (CLEAR) 06/25/17 13:30 Urine pH 6.0 (4.7-8.0) 06/25/17 13:30 Ur Specific Orange 1.025 (1.005-1.035) 06/25/17 13:30 Urine Protein Negative mg/dL (<30 mg/dL) 06/25/17 13:30 Urine Glucose (UA) >=1000 mg/dL (NEGATIVE) 06/25/17 13:30 Urine Ketones >=80 mg/dL (NEGATIVE) 06/25/17 13:30 Urine Blood Negative (NEGATIVE) 06/25/17 13:30 Urine Nitrate Negative (NEGATIVE) 06/25/17 13:30 Urine Bilirubin Negative (NEGATIVE) 06/25/17 13:30 Urine Urobilinogen 0.2 E.U./dL (<1 E.U./dL) 06/25/17 13:30 Ur Leukocyte Esterase Negative Helene/uL (NEGATIVE) 06/25/17 13:30 Urine Opiates Screen Negative (NEGATIVE) 06/25/17 16:00 Urine Methadone Screen Negative (NEGATIVE) 06/25/17 16:00 Ur Barbiturates Screen Negative (NEGATIVE) 06/25/17 16:00 Ur Phencyclidine Scrn Negative (NEGATIVE) 06/25/17 16:00 Ur Amphetamines Screen Negative (NEGATIVE) 06/25/17 16:00 U Benzodiazepines Scrn Negative (NEGATIVE) 06/25/17 16:00 U Oth Cocaine Metabols Negative (NEGATIVE) 06/25/17 16:00 U Cannabinoids Screen Negative (NEGATIVE) 06/25/17 16:00 Alcohol, Quantitative < 10 mg/dL (0-10) 06/25/17 14:50 Attending/Attestation - Attestation I have personally seen and examined this patient.: Yes I have fully participated in the care of the patient.: Yes I have reviewed all pertinent clinical information, including history, physical exam and plan: Yes Notes (Text): 06/30/17 16:56 attending note; Patient seen and examined with resident. Patient is a 36 year old woman with the PMH of IDDM, hypothyroidism, HTN, bipolar disorder, alcohol abuse, and brain tumor s/p resection is admitted with DKA. Currently DKA is resolved. Continue Levemir. Nausea or vomiting; Treated with IV Zofran and Protonix. CT abdomen and pelvis showed mild colitis. Currently flagyl. Tolerating diet now. Diarrhea; C. difficile ordered. currently no diarrhea. C. difficile not sent. hypothyroidism; continue Synthroid. follow-up with repeat TSH. discharge patient home today with close follow-up with endocrinology. Upon discharge the patient will follow-up PMD . Diagnosis; DKA Hypertension Hypothyroidism Noncompliance
== END 2017-06-28 12:10 | disposition home or self-care (01) | DRG 294 ==
LOC: ED 12:28 → ERH 15:27 → CCU 16:55 → 5RSO 06-26 19:09
PROVIDERS: ADMIT Internal Medicine; ATTEND Internal Medicine
DX: E10.10 Type 1 diabetes mellitus with ketoacidosis without coma (principal); I10 Essential (primary) hypertension; E05.90 Thyrotoxicosis, unspecified without thyrotoxic crisis or storm; E03.9 Hypothyroidism, unspecified; F31.9 Bipolar disorder, unspecified; F41.9 Anxiety disorder, unspecified; K52.9 Noninfective gastroenteritis and colitis, unspecified; Z79.4 Long term (current) use of insulin; Z87.01 Personal history of pneumonia (recurrent); Z87.891 Personal history of nicotine dependence; Z90.49 Acquired absence of other specified parts of digestive tract; Z87.898 Personal history of other specified conditions; R00.0 Tachycardia, unspecified; R40.2412 Glasgow coma scale score 13-15, at arrival to emergency department; Z98.51 Tubal ligation status; Z90.710 Acquired absence of both cervix and uterus; Z86.69 Personal history of other diseases of the nervous system and sense organs

== ENCOUNTER 2017-12-06 21:03 | Inpatient (IN) | payer MEDICAID ==
[2017-12-06 21:03] VITALS: BMI 26.4
[2017-12-06] MEDS ORDERED: Sodium Chloride 0.9% 1,000 ML IV ONE ×2 (21:27→22:37)
[2017-12-06] MEDS ORDERED: Insulin Regular 1 UNITS/0.01 ML ML IV STA (21:28)
--- NOTE | 2017-12-06 21:32 | ED PDOC ---
Arrival/HPI - General Historian: Patient - History of Present Illness Time/Duration: Other (1 day) Symptom Onset: Gradual Symptom Course: Worsening Quality: Aching Severity Level: Moderate Activities at Onset: Rest - General Chief Complaint: Dental Pain Time Seen by Provider: 12/06/17 21:14 - History of Present Illness Associated Symptoms (Text): 12/06/17 21:31 Patient complains of a one-day history of right lower posterior tooth pain. There's been facial swelling. There is some nausea but no vomiting. She's not been able to eat. She has been taking her insulin. Her blood sugars greater than 500. No fever. Some chills. (Tolerico,Isiah) Past Medical History - Infectious Disease Hx of Infectious Diseases: None - Tetanus Immunization Tetanus Immunization: Unknown - Cardiac Hx Cardiac Disorders: Yes Hx Angina: No Hx Hypertension: Yes - Pulmonary Hx Respiratory Disorders: Yes Hx Pneumonia: Yes - Neurological Hx Neurological Disorder: Yes Hx Alzheimer's Disease: No HX Cerebrovascular Accident: No Hx Dementia: No Hx Dizziness: No Hx Meningitis: No Hx Migraine: No Hx Parkinson's Disease: No Hx Seizures: Yes Hx Transient Ischemic Attacks (TIA): No Other/Comment: benign brain mass - HEENT Hx HEENT Disorder: No Hx Blind: No Hx Cataracts: No Hx Deafness: No Hx Difficulty Chewing: No Hx Epistaxis: No Hx Glaucoma: No Hx Macular Degeneration: No - Renal Hx Renal Disorder: No Hx Dialysis: No Hx Kidney Stones: No Hx Neurogenic Bladder: No Hx Pyelonephritis: No Hx Renal Cancer: No Hx Renal Failure: No - Endocrine/Metabolic Hx Endocrine Disorders: Yes Hx Diabetes Mellitus Type 2: Yes Hx Hypothyroidism: Yes - Hematological/Oncological Hx Blood Disorders: No Hx AIDS: No Hx Anemia: No Hx Cancer: No Hx Chemotherapy: No Hx Cirrhosis: No Hx Hepatitis A: No Hx Hepatitis B: No Hx Hepatitis C: No Hx Metastasis: No Hx Shingles: No Hx Unexplained Bleeding: No - Integumentary Hx Dermatological Disorder: No Hx Basal Cell Carcinoma: No Hx Eczema: No Hx Melanoma: No Hx Psoriasis: No Hx Squamous Cell Carcinoma: No - Musculoskeletal/Rheumatological Hx Musculoskeletal Disorders: No Hx Arthritis: No Hx Back Pain: No Hx Degenerative Joint Disease: No Hx Falls: No Hx Fractures: No Hx Gout: No Hx Herniated Disk: No Hx Myasthenia Gravis: No Hx Osteoarthritis: No Hx Osteomyelitis: No Hx Osteoporosis: No Hx Rhabdomyolysis: No Hx Spinal Stenosis: No Hx Unsteady Gait: No - Gastrointestinal Hx Gastrointestinal Disorders: No Hx Gall Bladder Disease: No Hx Gastroesophageal Reflux: No Hx Ileostomy: No Hx Liver Failure: No Hx Pancreatitis: No HX Swallowing Problems: No - Genitourinary/Gynecological Hx Genitourinary Disorders: No Hx Hematuria: No Hx Incontinence: No Hx Sexually Transmitted Diseases: No Hx Urinary Tract Infection: No - Psychiatric Hx Psychophysiologic Disorder: Yes Hx Anxiety: No Hx Bipolar Disorder: Yes Hx Depression: No Hx Hallucinations: No Hx Panic Disorder: No Hx Post Traumatic Stress Disorder: No Hx Substance Use: No - Surgical History Hx Cholecystectomy: Yes Other/Comment: brain surgery and hysterectomy. L ankle surgery and biopsy- RA - Anesthesia Hx Anesthesia: Yes Hx Anesthesia Reactions: No Hx Malignant Hyperthermia: No Family/Social History - Physician Review Nursing Documentation Reviewed: Yes Family/Social History: Unknown Family HX Smoking Status: Heavy Smoker > 10 Cigarettes Daily Hx Alcohol Use: Yes Frequency of alcohol use: Socially Hx Substance Use: No Allergies/Home Meds Allergies/Adverse Reactions: Allergies No Known Allergies Allergy (Verified 09/24/17 13:24) Home Medications: Home Meds Medication Instructions Recorded Confirmed Insulin Lispro [humALOG] 0 units SC AC 06/25/17 09/24/17 Atenolol [Tenormin] 25 mg PO DAILY 09/24/17 09/24/17 Divalproex [Depakote ER(ONCE 500 mg PO BID 09/24/17 09/24/17 DAILY)] Review of Systems - Physician Review All systems were reviewed & negative as marked: Yes - Review of Systems Constitutional: Fatigue, Fevers Respiratory: Normal Cardiovascular: Normal Gastrointestinal: Nausea. absent: Abdominal Pain, Diarrhea, Vomiting Genitourinary Female: absent: Dysuria Neurological: absent: Headache, Dizziness Physical Exam Temperature: Afebrile Blood Pressure: Hypertensive Pulse: Tachycardic Respiratory Rate: Normal Appearance: Positive for: Non-Toxic, Comfortable, Uncomfortable Pain Distress: Moderate Mental Status: Positive for: Alert and Oriented X 3 Finger Stick Blood Glucose: 500 - Systems Exam Head: Present: Atraumatic, Normocephalic, Other (Minimal right mandible swelling with no erythema or warmth) Pupils: Present: PERRL Extroacular Muscles: Present: EOMI Conjunctiva: Present: Normal Ears: Present: NORMAL TM, Normal Canal. No: Erythema Mouth: Present: Moist Mucous Membranes, Other (Right lower posterior second and third molar avulsed with abscess erythema swelling and tenderness) Pharnyx: No: ERYTHEMA, EXUDATE, TONSILS ENLARGED Neck: Present: Normal Range of Motion Respiratory/Chest: Present: Clear to Auscultation, Good Air Exchange. No: Respiratory Distress, Accessory Muscle Use Cardiovascular: Present: Regular Rate and Rhythm, Normal S1, S2, Tachycardic. No: Murmurs Abdomen: Present: Normal Bowel Sounds. No: Tenderness, Distention, Peritoneal Signs, Rebound, Guarding Back: Present: Normal Inspection Upper Extremity: Present: Normal Inspection. No: Cyanosis, Edema Lower Extremity: Present: Normal Inspection. No: Edema Neurological: Present: GCS=15, CN II-XII Intact, Speech Normal, Motor Func Grossly Intact Skin: Present: Warm, Dry, Normal Color. No: Rashes Psychiatric: Present: Alert, Oriented x 3, Normal Insight, Normal Concentration Vital Signs Temp Pulse Resp BP Pulse Ox 12/07/17 04:23 99.1 F 88 18 93/61 L 96 12/06/17 23:30 115 H 19 115/73 97 12/06/17 23:15 100 H 25 H 127/88 97 12/06/17 23:00 104 H 24 117/82 95 12/06/17 22:45 105 H 16 127/92 H 99 12/06/17 22:00 118 H 24 97 12/06/17 21:30 105 H 20 134/89 98 12/06/17 21:09 98.3 F 121 H 19 136/98 H 97 Medical Decision Making ED Course and Treatment: 12/06/17 21:39 EKG shows sinus tachycardia rate approximately 110 with poor R waves and nonspecific ST and T-wave changes with no acute changes 12/06/17 22:30 Discussed with the medical operations supervisor and , who will admit to the hospitalist service. (Isiah Uriarte) - Lab Interpretations Lab Results: 12/06/17 21:05 12/06/17 21:05 Lab Results 12/06/17 22:39: POC Glucose (mg/dL) 374 H 12/06/17 21:45: Urine Color Yellow, Urine Appearance Clear, Urine pH 6.0, Ur Specific [place] 1.015, Urine Protein Negative, Urine Glucose (UA) >=1000, Urine Ketones 40 H, Urine Blood Negative, Urine Nitrate Negative, Urine Bilirubin Negative, Urine Urobilinogen 0.2, Ur Leukocyte Esterase Negative 12/06/17 21:15: POC Glucose (mg/dL) 500 H* 12/06/17 21:05: Sodium 134, Chloride 96 L, Potassium 4.4, Carbon Dioxide 22, Anion Gap 20, BUN 13, Creatinine 0.7, Est GFR ( Amer) > 60, Est GFR (Non- Af Amer) > 60, Random Glucose 621 H* D, Calcium 10.0, Phosphorus 3.9, Magnesium 1.7, Total Bilirubin 0.5, AST 29, ALT 55, Alkaline Phosphatase 123, Total Protein 7.0, Albumin 4.4, Globulin 2.6, Albumin/Globulin Ratio 1.7 12/06/17 21:05: pO2 96 H, VBG pH 7.39, VBG pCO2 38.0 L, VBG HCO3 23.0, VBG Total CO2 24.2, VBG O2 Sat (Calc) 98.2 H, VBG Base Excess -1.7 L, VBG Potassium 4.7, Sodium 133.0, Chloride 96.0 L, Glucose 619 H* D, Lactate 1.7, FiO2 21.0, Venous Blood Potassium 4.7 12/06/17 21:05: WBC 8.0 D, RBC 4.16, Hgb 14.0 D, Hct 40.2, MCV 96.6 D, MCH 33.7, MCHC 34.8, RDW 12.7, Plt Count 429, MPV 10.3, Gran % 61.5, Lymph % (Auto) 32.2, [place] % (Auto) 4.9, Eos % (Auto) 0.9 L, Baso % (Auto) 0.5, Gran # 4.91, Lymph # 2.6, [place] # 0.4, Eos # 0.1, Baso # 0.04 - RAD Interpretation Radiology Orders: 12/06/17 21:26 CHEST PORTABLE [RAD] Stat 12/06/17 23:57 NECK SOFT TISSUE W/O CONTRAST [CT] Stat - Medication Orders Current Medication Orders: Amoxicillin/Clavulanate Potassium (Augmentin 500 Mg-125 Mg Tab) 1 tab PO Q8 SHIREEN PRN Reason: Protocol Last Admin: 12/07/17 06:46 Dose: 1 tab Divalproex Sodium (Depakote Dr(*Bid*)) 500 mg PO BID SHIREEN PRN Reason: Protocol Gabapentin (Neurontin) 600 mg PO TID SHIREEN PRN Reason: Protocol Clindamycin Phosphate 900 mg/ (Sodium Chloride) 106 mls @ 106 mls/hr IVPB Q8 SHIREEN PRN Reason: Protocol Last Admin: 12/07/17 06:45 Dose: 106 mls/hr eMAR Start Stop Document 12/07/17 06:45 JESUS MANUEL (Rec: 12/07/17 06:45 JESUS MANUEL [facility]) Intravenous Solution Start Date 12/07/17 Start Time 06:45 Sodium Chloride (Sodium Chloride 0.9%) 1,000 mls @ 150 mls/hr IV .Q6H40M [facility] Last Admin: 12/06/17 23:59 Dose: 150 mls/hr eMAR Start Stop Document 12/06/17 23:59 JESUS MANUEL (Rec: 12/06/17 23:59 JESUS MANUEL [facility]) Intravenous Solution Start Date 12/06/17 Start Time 23:59 Insulin Detemir (Levemir) 30 unit SC BID [facility] Last Admin: 12/07/17 00:24 Dose: 30 unit MAR Blood Glucose Document 12/07/17 00:24 JESUS MANUEL (Rec: 12/07/17 00:30 JESUS MANUEL [facility]) Blood Glucose Finger Stick Blood Glucose (70-120) 296 Subcutaneous Administrations Document 12/07/17 00:24 JESUS MANUEL (Rec: 12/07/17 00:30 [facility]) Injection Site MAR Injection Site Right Deltoid Charges for Administration # of Subcutaneous Administrations 1 Insulin Human Regular (Humulin R High) 0 units SC ACHS SHIREEN PRN Reason: Protocol Levetiracetam (Keppra) 500 mg PO Q12 [facility] Levothyroxine Sodium (Synthroid) 125 mcg PO 0600 [facility] Last Admin: 12/07/17 06:46 Dose: 125 mcg Morphine Sulfate (Morphine) 2 mg IVP Q4 PRN PRN Reason: Pain, severe (8-10) Last Admin: 12/07/17 04:21 Dose: 2 mg MAR Pain Assessment Document 12/07/17 04:21 JESUS MANUEL (Rec: 12/07/17 04:22 JESUS MANUEL [facility]) Pain Reassessment Is this a pain reassessment? Yes Sleep Is patient sleeping during reassessment? No Location Left, Right or Bilateral Right Pain Location Body Site Face IVP Administration Document 12/07/17 04:21 JESUS MANUEL (Rec: 12/07/17 04:22 JESUS MANUEL [facility]) Charges for Administration # of IVP Administrations 1 Ondansetron HCl (Zofran Inj) 4 mg IVP Q6H PRN PRN Reason: Nausea/Vomiting Oxycodone/Acetaminophen (Percocet 2.5/325 Mg Tab) 2 tab PO Q6H PRN PRN Reason: Pain, moderate (4-7) Pantoprazole Sodium (Protonix Inj) 40 mg IVP Q12 SHIREEN Last Admin: 12/07/17 00:03 Dose: 40 mg IVP Administration Document 12/07/17 00:03 JESUS MANUEL (Rec: 12/07/17 00:04 JESUS MANUEL [facility]) Charges for Administration # of IVP Administrations 1 Discontinued Medications Clindamycin Phosphate 900 mg/ (Sodium Chloride) 106 mls @ 106 mls/hr IVPB STAT STA PRN Reason: Protocol Stop: 12/06/17 22:27 Last Admin: 12/06/17 21:55 Dose: 106 mls/hr eMAR Start Stop Document 12/06/17 21:55 ND (Rec: 12/06/17 21:55 ND [id number]) Intravenous Solution Start Date 12/06/17 Start Time 21:55 End Date 12/06/17 End time 22:55 Total Infusion Time 60 Sodium Chloride (Sodium Chloride 0.9%) 1,000 mls @ 500 mls/hr IV ONCE ONE Stop: 12/06/17 23:26 Last Admin: 12/06/17 21:39 Dose: 500 mls/hr eMAR Start Stop Document 12/06/17 21:39 ND (Rec: 12/06/17 21:40 ND [id number]) Intravenous Solution Start Date 12/06/17 Start Time 21:30 End Date 12/06/17 End time 22:30 Total Infusion Time 60 Sodium Chloride (Sodium Chloride 0.9%) 1,000 mls @ 500 mls/hr IV ONCE ONE Stop: 12/07/17 00:36 Last Admin: 12/06/17 23:01 Dose: 500 mls/hr eMAR Start Stop Document 12/06/17 23:01 ND (Rec: 12/06/17 23:01 ND [id number]) Intravenous Solution Start Date 12/06/17 Start Time 22:30 End Date 12/06/17 End time 23:30 Total Infusion Time 60 Insulin Human Regular (Humulin R) 10 units IV ONCE STA Stop: 12/06/17 21:29 Last Admin: 12/06/17 21:54 Dose: 10 units eMAR Start Stop Document 12/06/17 21:54 ND (Rec: 12/06/17 21:55 ND [id number]) Intravenous Solution Start Date 12/06/17 Start Time 21:45 End Date 12/06/17 End time 21:45 Total Infusion Time 0 MAR Blood Glucose Document 12/06/17 21:54 ND (Rec: 12/06/17 21:55 ND [id number]) Blood Glucose Finger Stick Blood Glucose (70-120) 500 Ketorolac Tromethamine (Toradol) 15 mg IVP STAT STA Stop: 12/06/17 21:56 Last Admin: 12/06/17 22:07 Dose: 15 mg MAR Pain Assessment Document 12/06/17 22:07 ND (Rec: 12/06/17 22:07 ND [id number]) Pain Reassessment Is this a pain reassessment? No IVP Administration Document 12/06/17 22:07 ND (Rec: 12/06/17 22:07 ND [id number]) Charges for Administration # of IVP Administrations 1 Morphine Sulfate (Morphine) 4 mg IVP STAT STA Stop: 12/06/17 22:34 Last Admin: 12/06/17 23:00 Dose: 4 mg MAR Pain Assessment Document 12/06/17 23:00 ND (Rec: 12/06/17 23:01 ND [id number]) Pain Reassessment Is this a pain reassessment? Yes Sleep Is patient sleeping during reassessment? No Presence of Pain Presence of Pain Yes Pain Scale Used Pain Scale Used Numeric Location Left, Right or Bilateral Right Pain Location Body Site Face Description Description Throbbing IVP Administration Document 12/06/17 23:00 ND (Rec: 12/06/17 23:01 ND [id number]) Charges for Administration # of IVP Administrations 1 Morphine Sulfate (Morphine) 2 mg IVP Q6 PRN PRN Reason: Pain, severe (8-10) Ondansetron HCl (Zofran Inj) 4 mg IVP ONCE ONE Stop: 12/06/17 22:34 Last Admin: 12/06/17 23:01 Dose: 4 mg IVP Administration Document 12/06/17 23:01 ND (Rec: 12/06/17 23:01 ND [id number]) Charges for Administration # of IVP Administrations 1 Disposition/Present on Arrival - Present on Arrival Any Indicators Present on Arrival: No History of DVT/PE: No History of Uncontrolled Diabetes: Yes Urinary Catheter: No History of Decub. Ulcer: No History Surgical Site Infection Following: None - Disposition Have Diagnosis and Disposition been Completed?: Yes Disposition Time: 22:31 Patient Plan: Observation - Disposition Diagnosis: Diabetes mellitus, insulin dependent (IDDM), uncontrolled, Tobacco abuse, Hyperglycemia, Tachycardia, Mouth abscess, Dental abscess Disposition: HOSPITALIZED Patient Problems: Current Active Problems Problem Status Onset Dental abscess Acute Hyperglycemia Acute Mouth abscess Acute Tachycardia Acute Diabetes mellitus, insulin dependent (IDDM), uncontrolled Chronic Tobacco abuse Chronic Condition: FAIR Addendum Addendum: 12/06/17 23:55 I was requested to place a missed admission order for this patient by the house physician who had previously accepted the patient from .I am not involved in the care. (Lj Dacosta)
[2017-12-06] MEDS ORDERED: Clindamycin 150 mg/mL Inj ONE (21:41)
[2017-12-06 21:58] LABS: URINE BILIRUBIN NEGATIVE (NEGATIVE); URINE BLOOD NEGATIVE (NEGATIVE); URINE GLUCOSE (UA) >=1000 mg/dL (NEGATIVE); URINE LEUKOCYTE ESTERASE NEGATIVE Leu/uL (NEGATIVE); URINE NITRATE NEGATIVE (NEGATIVE); URINE PROTEIN NEGATIVE mg/dL (<30 mg/dL); URINE UROBILINOGEN 0.2 E.U./dL (<1 E.U./dL)
[2017-12-06 22:01] LABS: VENOUS BLOOD GAS BASE EXCESS -1.7 mmol/L (0.0-2.0); VENOUS BLOOD GAS PO2 96 mm/Hg (30-55); VENOUS BLOOD PH 7.39 (7.32-7.43)
[2017-12-06 22:01] LABS: URINE APPEARANCE CLEAR (CLEAR); URINE COLOR YELLOW (YELLOW)
[2017-12-06 22:03] LABS: RBC 4.16 10^6/uL (3.5-6.1)
[2017-12-06 22:05] LABS: BASO # 0.04 K/mm3 (0.0-2.0); BASO % 0.5 % (0.0-3.0); EOS # 0.1 (0.0-0.7); EOS % 0.9 % (1.5-5.0); GRAN # 4.91 (1.4-6.5); GRAN % 61.5 % (50.0-68.0); LYMPH # 2.6 (1.2-3.4); LYMPH % 32.2 % (22.0-35.0); MEAN CELL VOLUME 96.6 fl (80.0-105.0); MEAN CORPUSCULAR HEMOGLOBIN 33.7 pg (25.0-35.0); MEAN CORPUSCULAR HGB CONC 34.8 g/dl (31.0-37.0); MEAN PLATELET VOLUME 10.3 fl (7.0-11.0); MONO # 0.4 (0.1-0.6); MONO % 4.9 % (1.0-6.0); RED CELL DISTRIBUTION WIDTH 12.7 % (11.5-14.5)
[2017-12-06 22:19] LABS: ALB/GLOB RATIO 1.7 (1.1-1.8); ALBUMIN 4.4 g/dL (3.0-4.8); ALT/SGPT 55 U/L (7-56); AST/SGOT 29 U/L (14-36); BLOOD UREA NITROGEN 13 mg/dL (7-21); GFR AFRICAN-AMERICAN > 60; GFR NON-AFRICAN AMERICAN > 60; MAGNESIUM 1.7 mg/dL (1.7-2.2)
[2017-12-06] MEDS ORDERED: Morphine 4 mg/ml ISec IVP STA (22:33)
[2017-12-06] MEDS ORDERED: Oxycodone/Acetaminophen 2.5/325 mg Tab PO PRN (23:13)
[2017-12-06] MEDS ORDERED: Morphine 2 mg/ml ISec IVP PRN (23:13)
--- NOTE | 2017-12-06 23:36 | CP.PCM.HP ---
<Micah Pascal - Last Filed: 12/06/17 23:44> History of Present Illness - History of Present Illness History of Present Illness: Chief Complaint: Right lower jaw and gum pain HPI: Patient is a 37 year old female with a past medical history of IDDM, hypothyroidism, hypertension, bipolar disorder who presents to [facility] ED on with right jaw pain. Patient states this past Thursday while eating pretzels, one of the pretzels jabbed inside her gum on the lower right side of her jaw. She states that immediately after there was some pain but she didn't think much of it and continued to go about her normal day. This past Thursday however patient states the pain began to intensify and swelling started. Within the last 24 hours patient stated the pain and swelling became unbearable and then decided to come to the ED.States the pain lasts throughout the day, describing it as throbbing, rating it a 10/10. Patient states pain is exacerbated with talking and chewing. She took 50 ibuprofen pills within the past 24 hours in order to help relieve the pain, but states doing so did not alleviate the pain. This is the first time patient has experienced this. Admits to chills however states she normally experiences chills as her baseline. Denies nausea, vomiting , abdominal pain, fevers, dizziness, confusion. Patient has not seen her dentist yet regarding this dental incident. To note, patient's glucose level was 621 upon admission, after administration of Insulin, last glucose level was 500. Patient states her baseline glucose runs over 500 on a daily basis. 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 PMD: Dr. Noland Clothing Manager: Dr. Christine Past medical history: please see above Family history: Heart failure: mother, maternal grandparents Surgical history: cholecystectomy, hysterectomy secondary to fibroids, Tubal ligation, breast implants, brain surgery secondary to benign brain tumor Social history: admits to 1 ppd for the past 25 years, admits to social alcohol consumption, denies illicit drug use Allergies: NKDA Medications: please refer to MAR Present on Admission - Present on Admission Any Indicators Present on Admission: No Review of Systems - Review of Systems Systems not reviewed;Unavailable: Acuity of Condition - Constitutional Constitutional: Chills. absent: Fever - EENT Eyes: absent: Blurred Vision, Change in Vision Ears: Ear Pain. absent: Decreased Hearing, Ear Discharge, Dizziness Nose/Mouth/Throat: Dental Pain (right lower molars), Facial Pain. absent: Nasal Congestion, Nasal Discharge, Change in Voice, Hoarsness, Sore Throat, Tongue Swelling, Neck Pain - Cardiovascular Cardiovascular: absent: Chest Pain - Respiratory Respiratory: absent: Cough, Dyspnea on Exertion, Chest Congestion - Gastrointestinal Gastrointestinal: absent: Abdominal Pain, Diarrhea - Genitourinary Genitourinary: absent: Dysuria - Musculoskeletal Musculoskeletal: absent: Back Pain, Numbness - Neurological Neurological: absent: Dizziness, Numbness, Headaches - Endocrine Endocrine: Cold Intolorance, Fatigue Past Patient History - Infectious Disease Hx of Infectious Diseases: None - Tetanus Immunizations Tetanus Immunization: Unknown - Past Medical History & Family History Past Medical History?: Yes - Past Social History Smoking Status: Heavy Smoker > 10 Cigarettes Daily - CARDIAC Hx Cardiac Disorders: Yes Hx Angina: No Hx Hypertension: Yes - PULMONARY Hx Respiratory Disorders: Yes Hx Pneumonia: Yes - NEUROLOGICAL Hx Neurological Disorder: Yes Hx Alzheimer's Disease: No HX Cerebrovascular Accident: No Hx Dementia: No Hx Dizziness: No Hx Meningitis: No Hx Migraine: No Hx Parkinson's Disease: No Hx Seizures: Yes Hx Transient Ischemic Attacks (TIA): No Other/Comment: benign brain mass - HEENT Hx HEENT Problems: No Hx Blind: No Hx Cataracts: No Hx Deafness: No Hx Difficulty Chewing: No Hx Epistaxis: No Hx Glaucoma: No Hx Macular Degeneration: No - RENAL Hx Chronic Kidney Disease: No Hx Dialysis: No Hx Kidney Stones: No Hx Neurogenic Bladder: No Hx Pyelonephritis: No Hx Renal (Kidney) Cancer: No Hx Renal Failure: No - ENDOCRINE/METABOLIC Hx Endocrine Disorders: Yes Hx Diabetes Mellitus Type 2: Yes Hx Hypothyroidism: Yes - HEMATOLOGICAL/ONCOLOGICAL Hx Blood Disorders: No Hx AIDS: No Hx Anemia: No Hx Cancer: No Hx Chemotherapy: No Hx Cirrhosis: No Hx Hepatitis A: No Hx Hepatitis B: No Hx Hepatitis C: No Hx Metastesis: No Hx Shingles: No Hx Unexplained Bleeding: No - INTEGUMENTARY Hx Dermatological Problems: No Hx Basil Cell: No Hx Eczema: No Hx Melanoma: No Hx Psoriasis: No Hx Squamous Cell: No - MUSCULOSKELETAL/RHEUMATOLOGICAL Hx Musculoskeletal Disorders: No Hx Arthritis: No Hx Back Pain: No Hx Degenerative Joint Disease: No Hx Falls: No Hx Fractures: No Hx Gout: No Hx Herniated Disk: No Hx Myasthenia Gravis: No Hx Osteoarthritis: No Hx Osteomyelitis: No Hx Osteoporosis: No Hx Rhabdomyolysis: No Hx Spinal Stenosis: No Hx Unsteady Gait: No - GASTROINTESTINAL Hx Gastrointestinal Disorders: No Hx Gall Bladder Disease: No Hx Gastroesophageal Reflux: No Hx Ileostomy: No Hx Liver Failure: No Hx Pancreatitis: No HX Swallowing Problems: No - GENITOURINARY/GYNECOLOGICAL Hx Genitourinary Disorders: No Hx Hematuria: No Hx Incontinence: No Hx Sexually Transmitted Disorders: No Hx Urinary Tract Infection: No - PSYCHIATRIC Hx Psychophysiologic Disorder: Yes Hx Anxiety: No Hx Bipolar Disorder: Yes Hx Depression: No Hx Hallucinations: No Hx Panic Symptoms: No Hx Post Traumatic Stress Disorder: No Hx Substance Use: No - SURGICAL HISTORY Hx Cholecystectomy: Yes Other/Comment: brain surgery and hysterectomy. L ankle surgery and biopsy- RA - ANESTHESIA Hx Anesthesia: Yes Hx Anesthesia Reactions: No Hx Malignant Hyperthermia: No Meds Allergies/Adverse Reactions: Allergies Allergy/AdvReac Type Severity Reaction Status Date / Time No Known Allergies Allergy Verified 09/24/17 13:24 Physical Exam - Constitutional Appears: Non-toxic, No Acute Distress - Head Exam Head Exam: ATRAUMATIC, NORMAL INSPECTION, NORMOCEPHALIC - Eye Exam Eye Exam: EOMI - ENT Exam ENT Exam: Mucous Membranes Moist Additional comments: no pus or blood drainage from wound in right lower molar, periodontal swelling noted - Neck Exam Neck exam: Positive for: Normal Inspection. Negative for: Tenderness - Respiratory Exam Respiratory Exam: Clear to Auscultation Bilateral, NORMAL BREATHING PATTERN. absent: Rhonchi, Wheezes - Cardiovascular Exam Cardiovascular Exam: REGULAR RHYTHM, +S1, +S2 - GI/Abdominal Exam GI & Abdominal Exam: Normal Bowel Sounds, Soft. absent: Distended, Organomegaly - Neurological Exam Neurological exam: Alert, CN II-XII Intact, Oriented x3 - Skin Skin Exam: Intact, Normal Color, Warm Results - Vital Signs Recent Vital Signs: Last Vital Signs Temp 98.3 F 12/06/17 21:09 Pulse 121 H 12/06/17 21:09 Resp 19 12/06/17 21:09 BP 136/98 H 12/06/17 21:09 Pulse Ox 97 12/06/17 21:09 - Labs Result Diagrams: 12/06/17 21:05 12/06/17 21:05 Labs: Laboratory Results - last 24 hr 12/06/17 12/06/17 12/06/17 21:05 21:05 21:05 WBC 8.0 D RBC 4.16 Hgb 14.0 D Hct 40.2 MCV 96.6 D MCH 33.7 MCHC 34.8 RDW 12.7 Plt Count 429 MPV 10.3 Gran % 61.5 Lymph % (Auto) 32.2 [place] % (Auto) 4.9 Eos % (Auto) 0.9 L Baso % (Auto) 0.5 Gran # 4.91 Lymph # 2.6 [place] # 0.4 Eos # 0.1 Baso # 0.04 pO2 96 H VBG pH 7.39 VBG pCO2 38.0 L VBG HCO3 23.0 VBG Total CO2 24.2 VBG O2 Sat (Calc) 98.2 H VBG Base Excess -1.7 L VBG Potassium 4.7 Sodium 133.0 134 Chloride 96.0 L 96 L Glucose 619 H* D Lactate 1.7 FiO2 21.0 Potassium 4.4 Carbon Dioxide 22 Anion Gap 20 BUN 13 Creatinine 0.7 Est GFR ( Amer) > 60 Est GFR (Non-Af Amer) > 60 POC Glucose (mg/dL) Random Glucose 621 H* D Calcium 10.0 Phosphorus 3.9 Magnesium 1.7 Total Bilirubin 0.5 AST 29 ALT 55 Alkaline Phosphatase 123 Total Protein 7.0 Albumin 4.4 Globulin 2.6 Albumin/Globulin Ratio 1.7 Venous Blood Potassium 4.7 Urine Color Urine Appearance Urine pH Ur Specific Leary Urine Protein Urine Glucose (UA) Urine Ketones Urine Blood Urine Nitrate Urine Bilirubin Urine Urobilinogen Ur Leukocyte Esterase 12/06/17 12/06/17 21:15 21:45 WBC RBC Hgb Hct MCV MCH MCHC RDW Plt Count MPV Gran % Lymph % (Auto) [place] % (Auto) Eos % (Auto) Baso % (Auto) Gran # Lymph # [place] # Eos # Baso # pO2 VBG pH VBG pCO2 VBG HCO3 VBG Total CO2 VBG O2 Sat (Calc) VBG Base Excess VBG Potassium Sodium Chloride Glucose Lactate FiO2 Potassium Carbon Dioxide Anion Gap BUN Creatinine Est GFR ( Amer) Est GFR (Non-Af Amer) POC Glucose (mg/dL) 500 H* Random Glucose Calcium Phosphorus Magnesium Total Bilirubin AST ALT Alkaline Phosphatase Total Protein Albumin Globulin Albumin/Globulin Ratio Venous Blood Potassium Urine Color Yellow Urine Appearance Clear Urine pH 6.0 Ur Specific Leary 1.015 Urine Protein Negative Urine Glucose (UA) >=1000 Urine Ketones 40 H Urine Blood Negative Urine Nitrate Negative Urine Bilirubin Negative Urine Urobilinogen 0.2 Ur Leukocyte Esterase Negative Assessment & Plan - Assessment and Plan (Free Text) Assessment: 7 year old female with a past medical history of IDDM, hypothyroidism, hypertension, bipolar disorder who presents to [facility] ED on 12/06/16 with right jaw pain. Plan: Dental abscess -Neck CT ordered; results pending -Monitor WBC, currently no leukocytosis -Monitor vitals; currently afebrile -Antibiotic regimen: Clindamycin and Augmentin -Pain medicine regimen: morphine for severe pain, Percocet for breakthrough moderate pain relief -NPO until tomorrow morning Hyperglycemia -Monitor glucose levels q6 -Insulin sliding scale- High -30 units Levemir BID -Diabetic diet to start in morning for breakfast -IVF@150 Hypothyroidism -Continue synthroid -TSH, Free T4; results pending Benign brain tumor s/p resection - Continue prophylactic medications: keppra and depakote Hypertension -Controlled, BP medications held GI/DVT prophylaxis: Protonix/SCDs Case reviewed and discussed with Dr. Taina Pascal PGY1 <Thomas Her Q - Last Filed: 12/07/17 04:55> Results - Vital Signs Recent Vital Signs: Last Vital Signs Temp 99.1 F 12/07/17 04:23 Pulse 88 12/07/17 04:23 Resp 18 12/07/17 04:23 BP 93/61 L 12/07/17 04:23 Pulse Ox 96 12/07/17 04:23 - Labs Result Diagrams: 12/06/17 21:05 12/06/17 21:05 Labs: Laboratory Results - last 24 hr 12/07/17 01:55 Free T4 0.73 L TSH 3rd Generation 28.40 H Attending/Attestation - Attestation I have personally seen and examined this patient.: Yes I have fully participated in the care of the patient.: Yes I have reviewed all pertinent clinical information: Yes Notes (Text): 12/07/17 04:53 I agree with the above mentioned note and exam with the addition/exception of the followin37 y/o female with a PMHx DM, hypothyroid, bipolar who presents to the ED with worsening hyperglycemia along with gum/tooth pain. Patient is found to be in Hyperosmolar non-ketotic state; treated with IVF hydration in the ED as well as SQ insulin. Emprici antibiotics for a possible dental infection; will have to seek dental treatment once she is discharged and her blood sugars are controlled.
[2017-12-06] MEDS: Sodium Chloride 0.9% 1,000 ML IV SCH (23:59)
[2017-12-07] MEDS: Amoxicillin-Clav 500-125 mg Tab PO SCH ×3 (00:03→13:38)
[2017-12-07] MEDS: Insulin Detemir 100 units/ml Vial (Levemir) SC SCH ×2 (00:24→10:15)
--- NOTE | 2017-12-07 01:50 | CT ---
EXAM: CT Neck Without Intravenous Contrast CLINICAL HISTORY: 37 years old, female; Pain; Neck pain; Additional info: Dental abscess TECHNIQUE: Axial computed tomography images of the neck without intravenous contrast. All CT scans at this facility use one or more dose reduction techniques, viz.: automated exposure control; ma/kV adjustment per patient size (including targeted exams where dose is matched to indication; i.e. head); or iterative reconstruction technique. 604 images are submitted. Coronal and sagittal reformatted images were created and reviewed. COMPARISON: CT - NECK SOFT TISSUE W/CONTRAST 2017-09-24 15:34 FINDINGS: Brain: The visualized portions of the brain appears unremarkable. No hemorrhage. No significant white matter disease. Nasopharynx: Unremarkable. Oropharynx: Unremarkable. No significant tonsillar enlargement. Hypopharynx: Unremarkable. Larynx: Unremarkable. Normal epiglottis. Trachea: Unremarkable. Retropharyngeal space: Unremarkable. Submandibular/parotid glands: Unremarkable. Glands are normal in size. Thyroid: Unremarkable. No enlarged or calcified nodules. Bones/joints: Reversal of the normal cervical lordosis may be positional versus muscular spasm. No acute fracture. Soft tissues: Body piercing nose ring. Vasculature: Unremarkable aligned for unenhanced technique. Lymph nodes: Bilateral cervical chain lymph nodes. Orbits: The globe and lens are intact. Dental: Large right mandibular second molar carious lesion with non-root involvement. There is carious destruction of right mandibular first molar with retained roots and periapical abscess seen on image 35 series 602. There is recurrent carious lesion in the left mandibular second molar. Lung apices: Pulmonary vascular prominence with groundglass opacity to the lungs. Correlation with patient's hydration status is recommended. Other findings: Bilateral breast implants. IMPRESSION: 1. Large right mandibular second molar carious lesion with non-root involvement. There is carious destruction of right mandibular first molar with retained roots and periapical abscess seen on image 35 series 602. 2. There is recurrent carious lesion in the left mandibular second molar. Nonemergent dental evaluation is recommended.
[2017-12-07 03:30] LABS: FREE T4 0.73 ng/dL (0.78-2.19)
[2017-12-07] MEDS: Morphine 2 mg/ml ISec IVP PRN ×4 (04:21→20:09)
[2017-12-07 05:55] LABS: BASO # 0.03 K/mm3 (0.0-2.0); BASO % 0.4 % (0.0-3.0); EOS # 0.1 (0.0-0.7); EOS % 1.7 % (1.5-5.0); GRAN # 2.97 (1.4-6.5); LYMPH % 52.8 % (22.0-35.0); MEAN CORPUSCULAR HGB CONC 33.6 g/dl (31.0-37.0); MEAN PLATELET VOLUME 10.1 fl (7.0-11.0); MONO # 0.5 (0.1-0.6); MONO % 6.1 % (1.0-6.0); RBC 3.24 10^6/uL (3.5-6.1); RED CELL DISTRIBUTION WIDTH 12.8 % (11.5-14.5); WHITE BLOOD COUNT 7.6 10^3/ul (4.5-11.0)
[2017-12-07 06:18] LABS: MEAN CELL VOLUME 100.9 fl (80.0-105.0)
[2017-12-07 06:41] LABS: ALB/GLOB RATIO 1.4 (1.1-1.8); ALBUMIN 3.2 g/dL (3.0-4.8); ALT/SGPT 89 U/L (7-56); AST/SGOT 132 U/L (14-36); BLOOD UREA NITROGEN 16 mg/dL (7-21); CALCIUM 8.3 mg/dL (8.4-10.5); GFR AFRICAN-AMERICAN > 60; GFR NON-AFRICAN AMERICAN > 60; MAGNESIUM 1.7 mg/dL (1.7-2.2)
[2017-12-07] MEDS: Levothyroxine 125 MCG TAB PO SCH (06:46)
[2017-12-07] MEDS ORDERED: Dextrose 50% SYRINGE Inj (50 ml) ONE (07:35)
[2017-12-07] MEDS: Insulin Reg-HIGH-Coverage SC SCH ×4 (07:44→22:23)
[2017-12-07] MEDS: Sodium Chloride 0.9% 1,000 ML IV SCH (08:16)
--- NOTE | 2017-12-07 09:05 | RAD ---
HISTORY: Sepsis Patient COMPARISON: 06/25/2017. FINDINGS: LUNGS: The lungs are well inflated and clear. PLEURA: No significant pleural effusion identified, no pneumothorax apparent. CARDIOVASCULAR: Normal. OSSEOUS STRUCTURES: No significant abnormalities. VISUALIZED UPPER ABDOMEN: Normal. OTHER FINDINGS: None. IMPRESSION: No active pulmonary disease.
--- NOTE | 2017-12-07 09:27 | CP.PCM.PN ---
<Francisco Luna - Last Filed: 12/07/17 16:39> Subjective - Date & Time of Evaluation Date of Evaluation: 12/07/17 Time of Evaluation: 07:27 - Subjective Subjective: Francisco Luna PGY1 IM Progress Note for Dr. Khan Hospitalist Service Patient was seen and examined while in ED Bed 16. She stated that she went to a "Dr. Momin" a dentist in [place] on [address] who performed a L root canal but that no work was done on the right side. Patient was educated about proper oral care and need for follow up with oral surgeon. The patient denies chest pain, shortness of breath, cough, fevers/chills, n/v/d, headaches, changes in vision/ hearing, tinnitus, dizziness, fatigue, weakness, abdominal pain, changes in urine or bowel habits. Objective - Vital Signs/Intake and Output Vital Signs (last 24 hours): Temp Pulse Resp BP Pulse Ox 99.1 F 96 H 18 128/66 96 12/07/17 04:23 12/07/17 07:15 12/07/17 07:15 12/07/17 07:15 12/07/17 07:15 - Medications Medications: Current Medications Amoxicillin/Clavulanate Potassium (Augmentin 500 Mg-125 Mg Tab) 1 tab PO Q8 SHIREEN PRN Reason: Protocol Last Admin: 12/07/17 06:46 Dose: 1 tab Divalproex Sodium (Depakote Dr(*Bid*)) 500 mg PO BID SHIREEN PRN Reason: Protocol Gabapentin (Neurontin) 600 mg PO TID SHIREEN PRN Reason: Protocol Clindamycin Phosphate 900 mg/ (Sodium Chloride) 106 mls @ 106 mls/hr IVPB Q8 SHIREEN PRN Reason: Protocol Last Admin: 12/07/17 06:45 Dose: 106 mls/hr Sodium Chloride (Sodium Chloride 0.9%) 1,000 mls @ 150 mls/hr IV .Q6H40M [facility] Last Admin: 12/07/17 08:16 Dose: 150 mls/hr Insulin Detemir (Levemir) 30 unit SC BID [facility] Last Admin: 12/07/17 00:24 Dose: 30 unit Insulin Human Regular (Humulin R High) 0 units SC ACHS SHIREEN PRN Reason: Protocol Last Admin: 12/07/17 07:44 Dose: Not Given Levetiracetam (Keppra) 500 mg PO Q12 [facility] Levothyroxine Sodium (Synthroid) 125 mcg PO 0600 SHIREEN Last Admin: 12/07/17 06:46 Dose: 125 mcg Morphine Sulfate (Morphine) 2 mg IVP Q4 PRN PRN Reason: Pain, severe (8-10) Last Admin: 12/07/17 04:21 Dose: 2 mg Ondansetron HCl (Zofran Inj) 4 mg IVP Q6H PRN PRN Reason: Nausea/Vomiting Oxycodone/Acetaminophen (Percocet 2.5/325 Mg Tab) 2 tab PO Q6H PRN PRN Reason: Pain, moderate (4-7) Pantoprazole Sodium (Protonix Inj) 40 mg IVP Q12 [facility] Last Admin: 12/07/17 00:03 Dose: 40 mg - Labs Labs: 12/07/17 05:30 12/07/17 05:30 - Constitutional Appears: Well, Non-toxic, No Acute Distress - Head Exam Head Exam: NORMAL INSPECTION - Eye Exam Eye Exam: EOMI, Normal appearance, PERRL - ENT Exam ENT Exam: Normal Exam Additional comments: R lower molars visible wound with no pus draining or blood; clearly swollen and teeth missing - Neck Exam Neck Exam: Full ROM - Respiratory Exam Respiratory Exam: Clear to Ausculation Bilateral, NORMAL BREATHING PATTERN - Cardiovascular Exam Cardiovascular Exam: RRR - GI/Abdominal Exam GI & Abdominal Exam: Soft, Normal Bowel Sounds. absent: Distended, Tenderness - Extremities Exam Extremities Exam: Full ROM, Normal Inspection. absent: Pedal Edema - Back Exam Back Exam: NORMAL INSPECTION - Neurological Exam Neurological Exam: Alert, Awake, Oriented x3 - Psychiatric Exam Psychiatric exam: Normal Affect, Normal Mood - Skin Skin Exam: Normal Color, Warm Assessment and Plan - Assessment and Plan (Free Text) Assessment: 37 year old female with a past medical history of IDDM, hypothyroidism, hypertension, bipolar disorder who presented with right jaw pain. Plan: 1. Dental abscess - Neck CT showed 1st and 2nd Right and 2nd Left molars - OMF @ [facility]'s (Dr. Almaguer, attending, and Dr. Mckay, resident) were contacted and stated that no need for emergent surgical intervention; pt will follow up with them after discharge - Monitor WBC, currently no leukocytosis - Monitor vitals; currently afebrile - Antibiotic regimen: Clindamycin and Augmentin - Pain medicine regimen: morphine for severe pain, Percocet for breakthrough moderate pain relief - Puree diet 2. Hyperglycemia w/ Hx DM - Monitor glucose levels q6 - Insulin sliding scale- High - 30 units Levemir was stopped due to episode of hypoglycemia - Diabetic diet to start in morning for breakfast - IVF@150 - diabetic education 3. Hypothyroidism - Continue synthroid - Thyroid panel confirm hypothyroid 4. Benign brain tumor s/p resection - Continue prophylactic medications: keppra and depakote 5. Hypertension - Controlled, BP medications held 6. GI/DVT prophylaxis: Protonix/SCDs The patient was seen, examined and discussed with attending, Dr. Bill Luna PGY1 Pager # [phone] <Lexi Khan - Last Filed: 12/08/17 07:31> Objective - Vital Signs/Intake and Output Vital Signs (last 24 hours): Temp Pulse Resp BP Pulse Ox 97.9 F 76 18 91/51 L 93 L 12/08/17 04:00 12/08/17 04:00 12/08/17 04:00 12/08/17 04:00 12/08/17 04:00 Intake and Output: 12/08/17 12/08/17 06:59 18:59 Intake Total 480 Balance 480 - Medications Medications: Current Medications Divalproex Sodium (Depakote Dr(*Bid*)) 500 mg PO BID SHIREEN PRN Reason: Protocol Last Admin: 12/07/17 17:49 Dose: 500 mg Docusate Sodium (Colace) 100 mg PO DAILY [facility] Last Admin: 12/07/17 13:38 Dose: Not Given Gabapentin (Neurontin) 600 mg PO TID SHIREEN PRN Reason: Protocol Last Admin: 12/07/17 17:51 Dose: 600 mg Sodium Chloride (Sodium Chloride 0.9%) 1,000 mls @ 150 mls/hr IV .Q6H40M [facility] Last Admin: 12/08/17 00:47 Dose: Not Given Meropenem (Merrem Iv 1 Gm Premix) 50 mls @ 100 mls/hr IVPB Q8 SHIREEN PRN Reason: Protocol Stop: 12/16/17 22:01 Last Admin: 12/08/17 05:46 Dose: 100 mls/hr Insulin Human Regular (Humulin R High) 0 units SC ACHS SHIREEN PRN Reason: Protocol Last Admin: 12/07/17 22:23 Dose: Not Given Levetiracetam (Keppra) 500 mg PO Q12 [facility] Last Admin: 12/07/17 22:24 Dose: Not Given Levothyroxine Sodium (Synthroid) 125 mcg PO 0600 [facility] Last Admin: 12/08/17 05:46 Dose: 125 mcg Morphine Sulfate (Morphine) 2 mg IVP Q4 PRN PRN Reason: Pain, severe (8-10) Last Admin: 12/08/17 04:01 Dose: 2 mg Ondansetron HCl (Zofran Inj) 4 mg IVP Q6H PRN PRN Reason: Nausea/Vomiting Oxycodone/Acetaminophen (Percocet 2.5/325 Mg Tab) 2 tab PO Q6H PRN PRN Reason: Pain, moderate (4-7) Pantoprazole Sodium (Protonix Inj) 40 mg IVP Q12 [facility] Last Admin: 12/08/17 00:46 Dose: Not Given Polyethylene Glycol (Miralax) 17 gm PO BID [facility] Last Admin: 12/07/17 17:48 Dose: 17 gm - Labs Labs: 12/07/17 05:30 12/07/17 05:30 Attending/Attestation - Attestation I have personally seen and examined this patient.: Yes I have fully participated in the care of the patient.: Yes I have reviewed all pertinent clinical information, including history, physical exam and plan: Yes Notes (Text): 12/08/17 07:28 Attending note ; Patient seen and examined with resident . Patient is a 36 year old female with history of uncontrolled diabetes, hypertension, hypothyroidism, brain tumor resection and history of drug abuse who was admitted for with right-sided facial swelling. Patient had recurrent caries teeth with microabscesses. CT reviewed with OMF at [facility]. Patient can be treated with IV anti -biotics. Patient will be given a referral to OMF surgery at [place] upon discharge. Patient also follows up with her regular dentist. Elevated blood sugar; secondary to infection. Patient had a brief episode of hypoglycemia. Monitor closely. Hold long-acting insulin. Continue with regular insulin coverage. Pure diet. Continue IV anti-biotics for few more days till the swelling improves. Upon discharge the patient will follow-up with PMD Dr. Noland.
[2017-12-07] MEDS: Divalproex 500 mg DR(BID formulation) PO SCH ×2 (10:15→17:49)
[2017-12-07] MEDS ORDERED: Insulin Regular 1 UNITS/0.01 ML ML ONE (11:23)
[2017-12-07] MEDS ORDERED: Influenza Vaccine 60 mcg/0.5 mL SYR (4YR UP) IM ONE (15:28)
[2017-12-07] MEDS ORDERED: Pneumococcal 23-Valent Vaccine IM ONE (15:28)
--- NOTE | 2017-12-07 16:49 | CARD ---
APPROVED REPORT EKG Measurement Heart [id number] <Conclusion> Sinus tachycardia Low voltage QRS Septal infarct, age undetermined Abnormal ECG
[2017-12-07] MEDS: POLYETHYLENE GLYCOL 3350 17 GM/Dose PACKET PO SCH (17:48)
[2017-12-07] MEDS: Meropenem IV 1 gm in NS 50 ML IVPB SCH (22:27)
[2017-12-07] MEDS ORDERED: DiphenhydrAMINE 50 mg/ml Inj IVP STA (22:43)
[2017-12-08] MEDS: Sodium Chloride 0.9% 1,000 ML IV SCH (00:47)
[2017-12-08] MEDS: Morphine 2 mg/ml ISec IVP PRN ×5 (04:01→22:19)
--- NOTE | 2017-12-08 05:31 | CON ---
DATE: 12/07/2017 The patient is in room 245. CHIEF COMPLAINT: Right-sided facial swelling times several days. HISTORY OF PRESENT ILLNESS: This is a 37-year-old female with diabetes mellitus, history of cocaine abuse, history of hypertension and hypothyroidism, history of alcohol abuse, and history of bipolar disorder who is admitted with a right-sided facial swelling. The patient has been having tooth pain for several days, low-grade fevers. No difficulty swallowing. No headaches or blurred vision. No neck pain. No chest pain, shortness of breath or cough. PAST MEDICAL HISTORY: Significant for hypertension, diabetes, hypothyroidism, bipolar. PAST SURGICAL HISTORY: Significant for tubal ligation, hysterectomy, breast implants, and cholecystectomy. PHYSICAL EXAMINATION: VITAL SIGNS: Temperature is 99, blood pressure is 90/60, respiratory rate of 25, heart rate of 96. HEENT: Examination of HEENT, right lower molar tooth is a decaying tooth with right-sided facial swelling and erythema. NECK: Supple and lymphadenopathy is noted. LUNGS: Clear. HEART: Normal S1, S2. ABDOMEN: Soft, nontender. LABORATORY EXAMINATION: Reveals the patient to have white count of 8000, hemoglobin of 14, and platelets of 429. Blood gases are noted. The patient's random glucose is 139, and thyroid studies are noted. LFTs are elevated. Urinalysis is noted. Microbiology is pending. The patient had CAT scan of the neck, results are reviewed. Chest x-ray is reported to be negative. ASSESSMENT AND PLAN: This is a 37-year-old female with diabetes, hypertension, hypothyroidism, bipolar with low grade fevers, tachycardia, dyspnea, and erythematous right swollen face with number one is sepsis with soft tissue infection and Justin's angina in a patient with a history of diabetes, hypertension, hypothyroidism, bipolar, and alcohol and cocaine use. Large right mandibular second molar involvement and periapical abscess in odontogenic origin. We will treat the patient with meropenem. Check on the cultures. The patient had an HIV test in 11/2016 which was negative and ENT and/or and dental consultation is recommended. We will treat the patient with meropenem. We will make further recommendations. Ollie Nichols MD
[2017-12-08] MEDS: Levothyroxine 125 MCG TAB PO SCH (05:46)
[2017-12-08] MEDS: Meropenem IV 1 gm in NS 50 ML IVPB SCH ×3 (05:46→22:08)
[2017-12-08 07:50] LABS: BASO # 0.02 K/mm3 (0.0-2.0); BASO % 0.4 % (0.0-3.0); EOS # 0.1 (0.0-0.7); EOS % 2.3 % (1.5-5.0); GRAN # 1.76 (1.4-6.5); GRAN % 37.3 % (50.0-68.0); HEMOGLOBIN 11.1 g/dL (12.0-16.0); LYMPH # 2.7 (1.2-3.4); LYMPH % 56.2 % (22.0-35.0); MEAN CELL VOLUME 101.5 fl (80.0-105.0); MEAN CORPUSCULAR HEMOGLOBIN 33.1 pg (25.0-35.0); MEAN CORPUSCULAR HGB CONC 32.6 g/dl (31.0-37.0); MONO # 0.2 (0.1-0.6); MONO % 3.8 % (1.0-6.0); RBC 3.35 10^6/uL (3.5-6.1); RED CELL DISTRIBUTION WIDTH 13.3 % (11.5-14.5); WHITE BLOOD COUNT 4.7 10^3/ul (4.5-11.0)
--- NOTE | 2017-12-08 07:54 | CP.PCM.PN ---
<Donny Barriga - Last Filed: 12/08/17 12:22> Subjective - Date & Time of Evaluation Date of Evaluation: 12/08/17 Time of Evaluation: 07:00 - Subjective Subjective: Dr. Bill Sorensen Pt was seen and examined at bedside. No acute complaints at this time. As per nursing staff, no acute or adverse events overnight. Pt states she feels slightly better, however still has notable swelling of the jaw. pt is tolerating po intake. Pt has not had a bm overnight. Pt would like to advance her diet. The patient denies chest pain, shortness of breath, cough, fevers/ chills, n/v/d, headaches, changes in vision/hearing, tinnitus, dizziness, fatigue, weakness, or abdominal pain. Objective - Vital Signs/Intake and Output Vital Signs (last 24 hours): Temp Pulse Resp BP Pulse Ox 97.9 F 76 18 91/51 L 93 L 12/08/17 04:00 12/08/17 04:00 12/08/17 04:00 12/08/17 04:00 12/08/17 04:00 Intake and Output: 12/08/17 12/08/17 06:59 18:59 Intake Total 480 Balance 480 - Medications Medications: Current Medications Divalproex Sodium (Depakote Dr(*Bid*)) 500 mg PO BID SHIREEN PRN Reason: Protocol Last Admin: 12/07/17 17:49 Dose: 500 mg Docusate Sodium (Colace) 100 mg PO DAILY [facility] Last Admin: 12/07/17 13:38 Dose: Not Given Gabapentin (Neurontin) 600 mg PO TID SHIREEN PRN Reason: Protocol Last Admin: 12/07/17 17:51 Dose: 600 mg Sodium Chloride (Sodium Chloride 0.9%) 1,000 mls @ 150 mls/hr IV .Q6H40M [facility] Last Admin: 12/08/17 00:47 Dose: Not Given Meropenem (Merrem Iv 1 Gm Premix) 50 mls @ 100 mls/hr IVPB Q8 SHIREEN PRN Reason: Protocol Stop: 12/16/17 22:01 Last Admin: 12/08/17 05:46 Dose: 100 mls/hr Insulin Human Regular (Humulin R High) 0 units SC ACHS SHIREEN PRN Reason: Protocol Last Admin: 12/07/17 22:23 Dose: Not Given Levetiracetam (Keppra) 500 mg PO Q12 [facility] Last Admin: 12/07/17 22:24 Dose: Not Given Levothyroxine Sodium (Synthroid) 125 mcg PO 0600 [facility] Last Admin: 12/08/17 05:46 Dose: 125 mcg Morphine Sulfate (Morphine) 2 mg IVP Q4 PRN PRN Reason: Pain, severe (8-10) Last Admin: 12/08/17 04:01 Dose: 2 mg Ondansetron HCl (Zofran Inj) 4 mg IVP Q6H PRN PRN Reason: Nausea/Vomiting Oxycodone/Acetaminophen (Percocet 2.5/325 Mg Tab) 2 tab PO Q6H PRN PRN Reason: Pain, moderate (4-7) Pantoprazole Sodium (Protonix Inj) 40 mg IVP Q12 [facility] Last Admin: 12/08/17 00:46 Dose: Not Given Polyethylene Glycol (Miralax) 17 gm PO BID [facility] Last Admin: 12/07/17 17:48 Dose: 17 gm - Labs Labs: 12/07/17 05:30 12/07/17 05:30 - Constitutional Appears: No Acute Distress - Head Exam Head Exam: ATRAUMATIC, NORMAL INSPECTION, NORMOCEPHALIC - Eye Exam Eye Exam: EOMI, Normal appearance, PERRL Pupil Exam: NORMAL ACCOMODATION, PERRL - ENT Exam ENT Exam: Mucous Membranes Moist, Normal Exam - Neck Exam Neck Exam: Full ROM, Normal Inspection. absent: Lymphadenopathy - Respiratory Exam Respiratory Exam: Clear to Ausculation Bilateral, NORMAL BREATHING PATTERN - Cardiovascular Exam Cardiovascular Exam: REGULAR RHYTHM, +S1, +S2. absent: Murmur - GI/Abdominal Exam GI & Abdominal Exam: Soft, Normal Bowel Sounds. absent: Tenderness - Extremities Exam Extremities Exam: Full ROM, Normal Capillary Refill, Normal Inspection. absent : Joint Swelling, Pedal Edema - Back Exam Back Exam: NORMAL INSPECTION - Neurological Exam Neurological Exam: Alert, Awake, CN II-XII Intact, Normal Gait, Oriented x3 - Psychiatric Exam Psychiatric exam: Normal Affect, Normal Mood - Skin Skin Exam: Dry, Intact, Normal Color, Warm Assessment and Plan - Assessment and Plan (Free Text) Assessment: 37 year old female with a past medical history of IDDM, hypothyroidism, hypertension, bipolar disorder who presented with right jaw pain and admitted for managment of dental abscess. Given iv merrem,will dc with augmentin with fu with personal dentist or [facility] services. 1. Dental abscess - Neck CT showed 1st and 2nd Right and 2nd Left molars - OMF @ [facility]'s (Dr. Almaguer, attending, and Dr. Mckay, resident) were contacted and stated that no need for emergent surgical intervention; pt will follow up with them after discharge - Monitor WBC, currently no leukocytosis - Monitor vitals; currently afebrile - Antibiotic regimen: Merrem, ID Consulted, Dr. Nichols - Pain medicine regimen: morphine for severe pain, Percocet for breakthrough moderate pain relief - Puree diet 2. Hyperglycemia w/ Hx DM - Monitor glucose levels q6 - Insulin sliding scale- High - 30 units Levemir was stopped due to episode of hypoglycemia. will give 15 u this morning, and then restart her home regimen - Diabetic diet to start in morning for breakfast - diabetic education 3. Hypothyroidism - Continue synthroid - Thyroid panel confirm hypothyroid 4. Benign brain tumor s/p resection - Continue prophylactic medications: keppra and depakote 5. Hypertension - Controlled, BP medications held 6. GI/DVT prophylaxis: Protonix/SCDs The patient was seen, examined and discussed with attending, Dr. Khan <Lexi Khan - Last Filed: 12/08/17 15:23> Objective - Vital Signs/Intake and Output Vital Signs (last 24 hours): Temp Pulse Resp BP Pulse Ox 97.9 F 76 18 91/51 L 93 L 12/08/17 04:00 12/08/17 04:00 12/08/17 04:00 12/08/17 04:00 12/08/17 04:00 Intake and Output: 12/08/17 12/08/17 06:59 18:59 Intake Total 480 780 Balance 480 780 - Medications Medications: Current Medications Divalproex Sodium (Nancy Hermosillo(*Bid*)) 500 mg PO BID SHIREEN PRN Reason: Protocol Last Admin: 12/08/17 10:15 Dose: 500 mg Docusate Sodium (Colace) 100 mg PO DAILY SHIREEN Last Admin: 12/08/17 10:15 Dose: 100 mg Gabapentin (Neurontin) 600 mg PO TID SHIREEN PRN Reason: Protocol Last Admin: 12/08/17 10:16 Dose: 600 mg Sodium Chloride (Sodium Chloride 0.9%) 1,000 mls @ 150 mls/hr IV .Q6H40M [facility] Last Admin: 12/08/17 00:47 Dose: Not Given Meropenem (Merrem Iv 1 Gm Premix) 50 mls @ 100 mls/hr IVPB Q8 SHIREEN PRN Reason: Protocol Stop: 12/16/17 22:01 Last Admin: 12/08/17 14:44 Dose: 100 mls/hr Insulin Human Regular (Humulin R High) 0 units SC ACHS SHIREEN PRN Reason: Protocol Last Admin: 12/08/17 12:27 Dose: 15 units Levetiracetam (Keppra) 500 mg PO Q12 [facility] Last Admin: 12/08/17 10:16 Dose: Not Given Levothyroxine Sodium (Synthroid) 125 mcg PO 0600 [facility] Last Admin: 12/08/17 05:46 Dose: 125 mcg Morphine Sulfate (Morphine) 2 mg IVP Q4 PRN PRN Reason: Pain, severe (8-10) Last Admin: 12/08/17 13:07 Dose: 2 mg Ondansetron HCl (Zofran Inj) 4 mg IVP Q6H PRN PRN Reason: Nausea/Vomiting Last Admin: 12/08/17 13:33 Dose: 4 mg Oxycodone/Acetaminophen (Percocet 2.5/325 Mg Tab) 2 tab PO Q6H PRN PRN Reason: Pain, moderate (4-7) Pantoprazole Sodium (Protonix Inj) 40 mg IVP Q12 [facility] Last Admin: 12/08/17 10:16 Dose: 40 mg Polyethylene Glycol (Miralax) 17 gm PO BID [facility] Last Admin: 12/08/17 10:16 Dose: 17 gm - Labs Labs: 12/08/17 07:00 12/08/17 07:00 Attending/Attestation - Attestation I have personally seen and examined this patient.: Yes I have fully participated in the care of the patient.: Yes I have reviewed all pertinent clinical information, including history, physical exam and plan: Yes Notes (Text): 12/08/17 15:20 Attending note: Patient seen and examined with resident. Patient is a 36 year old female with history of uncontrolled diabetes, hypertension, hypothyroidism, brain tumor resection and history of drug abuse who was admitted for with right-sided facial swelling. Patient had recurrent caries teeth with microabscesses. currently on IV meropenem. ID evaluation appreciated. Can be switched to by mouth Augmentin upon discharge. Elevated blood sugar; secondary to infection. Patient had a brief episode of hypoglycemia. currently and regular diet. Add Levemir. Possible discharge home tomorrow. Needs follow-up with the dentist and OMF surgery in [facility]. Upon discharge the patient will follow-up with PMD Dr. Noland. 12/08/17 15:22
[2017-12-08] MEDS: Insulin Reg-HIGH-Coverage SC SCH ×4 (08:35→22:12)
[2017-12-08 08:55] LABS: ALB/GLOB RATIO 1.3 (1.1-1.8); ALBUMIN 2.9 g/dL (3.0-4.8); ALT/SGPT 75 U/L (7-56); AST/SGOT 63 U/L (14-36); BLOOD UREA NITROGEN 13 mg/dL (7-21); CALCIUM 8.4 mg/dL (8.4-10.5); GFR AFRICAN-AMERICAN > 60; GFR NON-AFRICAN AMERICAN > 60
[2017-12-08] MEDS: Divalproex 500 mg DR(BID formulation) PO SCH ×2 (10:15→17:54)
[2017-12-08] MEDS: POLYETHYLENE GLYCOL 3350 17 GM/Dose PACKET PO SCH ×2 (10:16→17:54)
[2017-12-08] MEDS ORDERED: Insulin Detemir 100 units/ml Vial (Levemir) SC ONE (11:50)
[2017-12-08] MEDS: Insulin Detemir 100 units/ml Vial (Levemir) SC SCH (17:53)
[2017-12-08] MEDS ORDERED: DiphenhydrAMINE 50 mg/ml Inj IVP STA (21:46)
[2017-12-08] MEDS ORDERED: DiphenhydrAMINE 50 mg/ml Inj IVP ONE (22:00)
[2017-12-08] MEDS: Pantoprazole 40 mg EC Tab PO SCH (22:11)
--- NOTE | 2017-12-08 22:42 | PN ---
DATE: 12/08/2017 SUBJECTIVE: Patient is in bed, in no acute distress, nontoxic. OBJECTIVE: VITAL SIGNS: On exam, temperature is 97, blood pressure is 100/60, respiratory rate 18. HEENT: Examination of HEENT is unremarkable. NECK: Supple. LUNGS: Have decreased breath sounds. HEART: Normal S1, S2. ABDOMEN: Soft. LABORATORY EXAMINATION: Reveals a white count of 4.7, hemoglobin of 11, platelets of 283. Chemistries are noted. Urinalysis is noted. Microbiology reveals the blood cultures are negative. ASSESSMENT AND PLAN: This is a 37-year-old female with diabetes, hypertension, hypothyroidism, bipolar with low grade fevers, tachycardia, dyspnea with sepsis with a soft tissue infection and Justin's angina, history of diabetes, hypertension, hypothyroidism, bipolar, alcohol and cocaine use with a large right mandibular second molar involvement, periapical abscess odontogenic in origin, currently on meropenem. May switch to p.o. Augmentin upon discharge 875 p.o. b.i.d. Follow up with [facility]. Ollie Nichols MD
[2017-12-09 00:09] VITALS: RESP 20
[2017-12-09] MEDS: Meropenem IV 1 gm in NS 50 ML IVPB SCH ×2 (05:17→13:33)
[2017-12-09] MEDS: Levothyroxine 125 MCG TAB PO SCH (05:17)
[2017-12-09] MEDS: Morphine 2 mg/ml ISec IVP PRN (05:21)
[2017-12-09 06:03] VITALS: BP 105/74; PULSE 84; TEMP 97.8; O2SAT 94
[2017-12-09 06:40] LABS: BASO # 0.03 K/mm3 (0.0-2.0); BASO % 0.6 % (0.0-3.0); EOS # 0.1 (0.0-0.7); EOS % 1.3 % (1.5-5.0); GRAN # 2.23 (1.4-6.5); GRAN % 42.3 % (50.0-68.0); HEMOGLOBIN 11.6 g/dL (12.0-16.0); LYMPH # 2.7 (1.2-3.4); LYMPH % 51.3 % (22.0-35.0); MEAN CELL VOLUME 102.3 fl (80.0-105.0); MEAN CORPUSCULAR HEMOGLOBIN 33.7 pg (25.0-35.0); MEAN PLATELET VOLUME 10.1 fl (7.0-11.0); MONO # 0.2 (0.1-0.6); MONO % 4.5 % (1.0-6.0); RBC 3.44 10^6/uL (3.5-6.1); RED CELL DISTRIBUTION WIDTH 13.4 % (11.5-14.5); WHITE BLOOD COUNT 5.3 10^3/ul (4.5-11.0)
[2017-12-09 07:09] LABS: ALB/GLOB RATIO 1.3 (1.1-1.8); ALBUMIN 3.1 g/dL (3.0-4.8); ALT/SGPT 76 U/L (7-56); AST/SGOT 77 U/L (14-36); BLOOD UREA NITROGEN 15 mg/dL (7-21); CALCIUM 8.8 mg/dL (8.4-10.5); GFR AFRICAN-AMERICAN > 60; GFR NON-AFRICAN AMERICAN > 60
[2017-12-09] MEDS ORDERED: Morphine 2 mg/ml ISec IVP PRN (09:11)
[2017-12-09] MEDS: Divalproex 500 mg DR(BID formulation) PO SCH (09:56)
[2017-12-09] MEDS: Insulin Detemir 100 units/ml Vial (Levemir) SC SCH (09:57)
[2017-12-09] MEDS: Insulin Reg-MEDIUM-Coverage SC SCH ×2 (09:57→13:32)
[2017-12-09] MEDS: Pantoprazole 40 mg EC Tab PO SCH (09:58)
[2017-12-09] MEDS: POLYETHYLENE GLYCOL 3350 17 GM/Dose PACKET PO SCH ×2 (09:58→10:03)
--- NOTE | 2017-12-09 11:00 | CP.PCM.DIS ---
Provider - Provider Date of Admission: 12/06/17 23:58 Attending physician: Lexi Khan MD Time Spent in preparation of Discharge (in minutes): 45 Diagnosis - Discharge Diagnosis (1) Dental abscess Status: Acute (2) Hyperglycemia Status: Acute (3) Diabetes mellitus, insulin dependent (IDDM), uncontrolled Status: Chronic (4) H/O brain tumor Status: Chronic (5) Hypothyroid Status: Chronic (6) Hypertension Status: Chronic (7) Polysubstance abuse Status: Chronic (8) Bipolar disorder Status: Chronic Hospital Course - Lab Results Lab Results: Most Recent Lab Values WBC 5.3 10^3/ul (4.5-11.0) 12/09/17 06:00 RBC 3.44 10^6/uL (3.5-6.1) L 12/09/17 06:00 Hgb 11.6 g/dL (12.0-16.0) L 12/09/17 06:00 Hct 35.2 % (36.0-48.0) L 12/09/17 06:00 MCV 102.3 fl (80.0-105.0) 12/09/17 06:00 MCH 33.7 pg (25.0-35.0) 12/09/17 06:00 MCHC 33.0 g/dl (31.0-37.0) 12/09/17 06:00 RDW 13.4 % (11.5-14.5) 12/09/17 06:00 Plt Count 298 10^3/uL (120.0-450.0) 12/09/17 06:00 MPV 10.1 fl (7.0-11.0) 12/09/17 06:00 Gran % 42.3 % (50.0-68.0) L 12/09/17 06:00 Lymph % (Auto) 51.3 % (22.0-35.0) H 12/09/17 06:00 Coles % (Auto) 4.5 % (1.0-6.0) 12/09/17 06:00 Eos % (Auto) 1.3 % (1.5-5.0) L 12/09/17 06:00 Baso % (Auto) 0.6 % (0.0-3.0) 12/09/17 06:00 Gran # 2.23 (1.4-6.5) 12/09/17 06:00 Lymph # 2.7 (1.2-3.4) 12/09/17 06:00 Coles # 0.2 (0.1-0.6) 12/09/17 06:00 Eos # 0.1 (0.0-0.7) 12/09/17 06:00 Baso # 0.03 K/mm3 (0.0-2.0) 12/09/17 06:00 pO2 96 mm/Hg (30-55) H 12/06/17 21:05 VBG pH 7.39 (7.32-7.43) 12/06/17 21:05 VBG pCO2 38.0 (40-60) L 12/06/17 21:05 VBG HCO3 23.0 mmol/l (21-28) 12/06/17 21:05 VBG Total CO2 24.2 mmol.L (22-28) 12/06/17 21:05 VBG O2 Sat (Calc) 98.2 % (40-65) H 12/06/17 21:05 VBG Base Excess -1.7 mmol/L (0.0-2.0) L 12/06/17 21:05 VBG Potassium 4.7 mmol/L (3.6-5.2) 12/06/17 21:05 Sodium 133.0 mmol/L (132-148) 12/06/17 21:05 Chloride 96.0 mmol/L (98-107) L 12/06/17 21:05 Glucose 619 mg/dl (65-105) H* D 12/06/17 21:05 Lactate 1.7 mmol/L (0.7-2.1) 12/06/17 21:05 FiO2 21.0 % 12/06/17 21:05 Sodium 135 mmol/L (132-148) 12/09/17 06:00 Potassium 4.4 mmol/L (3.6-5.0) 12/09/17 06:00 Chloride 102 mmol/L (98-107) 12/09/17 06:00 Carbon Dioxide 27 mmol/L (21-33) 12/09/17 06:00 Anion Gap 10 (10-20) 12/09/17 06:00 BUN 15 mg/dL (7-21) 12/09/17 06:00 Creatinine 0.6 mg/dl (0.7-1.2) L 12/09/17 06:00 Est GFR ( Amer) > 60 12/09/17 06:00 Est GFR (Non-Af Amer) > 60 12/09/17 06:00 POC Glucose (mg/dL) 229 mg/dL (65-110) H 12/09/17 07:23 Random Glucose 251 mg/dL (70-110) H 12/09/17 06:00 Hemoglobin A1c 14.5 % (4.2-6.5) H 12/08/17 07:00 Calcium 8.8 mg/dL (8.4-10.5) 12/09/17 06:00 Phosphorus 3.4 mg/dL (2.5-4.5) 12/07/17 05:30 Magnesium 1.7 mg/dL (1.7-2.2) 12/07/17 05:30 Total Bilirubin 0.1 mg/dL (0.2-1.3) L 12/09/17 06:00 AST 77 U/L (14-36) H D 12/09/17 06:00 ALT 76 U/L (7-56) H 12/09/17 06:00 Alkaline Phosphatase 108 U/L (38-126) 12/09/17 06:00 Total Protein 5.5 g/dL (5.8-8.3) L 12/09/17 06:00 Albumin 3.1 g/dL (3.0-4.8) 12/09/17 06:00 Globulin 2.4 gm/dL 12/09/17 06:00 Albumin/Globulin Ratio 1.3 (1.1-1.8) 12/09/17 06:00 Free T4 0.73 ng/dL (0.78-2.19) L 12/07/17 01:55 TSH 3rd Generation 28.40 mIU/mL (0.46-4.68) H 12/07/17 01:55 Venous Blood Potassium 4.7 mmol/L (3.6-5.2) 12/06/17 21:05 Urine Color Yellow (YELLOW) 12/06/17 21:45 Urine Appearance Clear (CLEAR) 12/06/17 21:45 Urine pH 6.0 (4.7-8.0) 12/06/17 21:45 Ur Specific [place] 1.015 (1.005-1.035) 12/06/17 21:45 Urine Protein Negative mg/dL (<30 mg/dL) 12/06/17 21:45 Urine Glucose (UA) >=1000 mg/dL (NEGATIVE) 12/06/17 21:45 Urine Ketones 40 mg/dL (NEGATIVE) H 12/06/17 21:45 Urine Blood Negative (NEGATIVE) 12/06/17 21:45 Urine Nitrate Negative (NEGATIVE) 12/06/17 21:45 Urine Bilirubin Negative (NEGATIVE) 12/06/17 21:45 Urine Urobilinogen 0.2 E.U./dL (<1 E.U./dL) 12/06/17 21:45 Ur Leukocyte Esterase Negative Helene/uL (NEGATIVE) 12/06/17 21:45 - Hospital Course Hospital Course: Ms. Contreras is a 37 year old female with a past medical history of IDDM ( uncontrolled), hypothyroidism, hypertension, bipolar disorder and polysubstance abuse who presented to [facility] with right jaw pain and was found to have an abscess due to a gum injury while eating pretzels, about 5 days prior to admission. Patient experienced pain and gum swelling, but had not seen her dentist yet regarding the issue. Per chart review, patient had a prior admission in 09/2017 for the same dental issue; during that visit, she was found to be in DKA. Patient's glucose level was 621 upon admission. Patient stated her baseline glucose runs over 500 on a daily basis. 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 Colindres) but has missed the past few appointments. Patient was given 30units Levemir and started on fluids; likely due to poor PO intake, the patient became hypoglycemic and was changed to sliding scale and fluids were stopped; A1C is 14.5 and blood sugars were poorly controlled throughout hospital stay, and patient received diabetic education. Patient did not meet SIRS criteria for sepsis at time of admission. CT of neck showed carious lesions (L and R mandibular 2nd molars) and periapical abscess of R mandibular first molar. Blood cultures were negative. ID was consulted and started patient on meropenem. Pain was also managed. Patient's other medical condition were also addressed during hospital stay. Dr. Mckay (resident) and Dr. Almaguer (attending physician) oral surgeons from [facility] were contacted ([phone]) and they recommended non-emergent intervention and that the patient can follow up with them as outpatient. Patient's diet was advanced and per ID recommendations, patient was cleared for discharge on Augmentin for 7 days. Patient offered no complaints at time of discharge. She was educated on proper diabetic diet and insulin use for better glycemic control and instructed to follow up with oral surgeons named above, her own dentist as well PMDCady Laurent is discharged on Augmentin, Neurontin, Motrin, and Levemir (meds to bed). Patient is medically stable for discharge home. Discharge Exam - Additional Findings Additional findings: - Constitutional Appears: Well, Non-toxic, No Acute Distress - Head Exam Head Exam: NORMAL INSPECTION - Eye Exam Eye Exam: EOMI, Normal appearance, PERRL - ENT Exam ENT Exam: Normal Exam Additional comments: R lower molars visible wound with no pus draining or blood; clearly swollen and teeth missing - Neck Exam Neck Exam: Full ROM - Respiratory Exam Respiratory Exam: Clear to Ausculation Bilateral, NORMAL BREATHING PATTERN - Cardiovascular Exam Cardiovascular Exam: RRR - GI/Abdominal Exam GI & Abdominal Exam: Soft, Normal Bowel Sounds. absent: Distended, Tenderness - Extremities Exam Extremities Exam: Full ROM, Normal Inspection. absent: Pedal Edema - Back Exam Back Exam: NORMAL INSPECTION - Neurological Exam Neurological Exam: Alert, Awake, Oriented x3 - Psychiatric Exam Psychiatric exam: Normal Affect, Normal Mood - Skin Skin Exam: Normal Color, Warm Discharge Plan - Discharge Medications Prescriptions: Amoxicillin/Clavulanate [Augmentin 875 MG-125 MG] 1 tab PO BID #14 tab Gabapentin [Neurontin] 600 mg PO TID #90 tab Ibuprofen [Motrin Tab] 400 mg PO Q6H #30 tab Insulin Detemir [Levemir] 30 unit SC BID #60 ml - Follow Up Plan Condition: FAIR Disposition: HOME/ ROUTINE Instructions: Cardioversion (DC), Dental Abscess (GEN), Dental Caries (DC), Abscess (GEN) Additional Instructions: - please continue taking your home meds - please take the Augmentin (antibiotic) TWICE daily for 1 week - please follow up with your dentist - please follow up with oral surgeon Dr. Almaguer at [facility] - please measure your blood sugar closely and frequently throughout the day due to fluctuations and discuss with your primary doctor about medication adjustment - if you experience any fevers/chills or worsening pain or trouble breathing, please return to ER for evaluation Referrals: Charlie Almaguer [Other] (@ [facility])
[2017-12-09] MEDS ORDERED: Morphine 2 mg/ml ISec IVP SCH (12:00)
--- NOTE | 2017-12-09 20:16 | PN ---
DATE: 12/09/2017 SUBJECTIVE: The patient is in bed, in no acute distress, nontoxic. PHYSICAL EXAMINATION: VITAL SIGNS: On exam, temperature is 97, blood pressure is 105/70, respiratory rate of 16. HEENT: Unremarkable. NECK: Supple. LUNGS: Have decreased breath sounds. HEART: Normal S1, S2. ABDOMEN: Soft. Facial swelling is much improved. LABORATORY EXAMINATION: Reveals a white count of 5.3, hemoglobin of 11. Chemistry reveals a BUN of 15, creatinine of 0.6. Urinalysis is noted. Blood cultures are negative. ASSESSMENT AND PLAN: This is a 37-year-old female with diabetes mellitus, hypertension, hypothyroidism, bipolar with low grade fevers, tachycardia, dyspnea with sepsis with a soft tissue infection and Justin's angina, history of diabetes, hypertension, hypothyroidism, bipolar, alcohol and cocaine use, large right mandibular second molar tooth involvement, periapical abscess odontogenic in origin. May be switch to p.o. Augmentin 875 p.o. b.i.d. Follow up with [facility], dental follow up. Ollie Nichols MD
== END 2017-12-09 15:37 | disposition home or self-care (01) | DRG 185 ==
LOC: ED 21:03 → ERH 23:58 → 2A 12-07 13:01
PROVIDERS: ADMIT Internal Medicine; ATTEND Internal Medicine
DX: K04.7 Periapical abscess without sinus (principal); E11.65 Type 2 diabetes mellitus with hyperglycemia; F14.10 Cocaine abuse, uncomplicated; E03.9 Hypothyroidism, unspecified; I10 Essential (primary) hypertension; F31.9 Bipolar disorder, unspecified; Z98.82 Breast implant status; Z86.011 Personal history of benign neoplasm of the brain; Z79.4 Long term (current) use of insulin; Z72.0 Tobacco use